=== PATIENT | male | born 1940 | race Caucasian/White ===

== ENCOUNTER 2017-07-19 03:03 | Inpatient (IN) | payer OTHER, MEDICARE, BC ==
[~2017-07-19] VITALS: Ht 177.8 cm; Wt 89.5 kg
[2017-07-19] VITALS (14 sets, daily range): BP systolic 103–137; BP diastolic 58–87; PULSE 48–119; RESP 19–25; TEMP 98.4–99; O2SAT 99–100
[2017-07-19] MEDS ORDERED: ONDANSETRON HCL 4 MG/2 ML VIAL ONE (03:11)
[2017-07-19] MEDS ORDERED: MORPHINE SULFATE 8 MG/ML INJ ONE (03:11)
[2017-07-19] MEDS ORDERED: GENTAMICIN 80 MG PREMIX 100 ML ONE (03:11)
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
[2017-07-19 03:27] LABS: AUTOMATED NEUTROPHIL # 9.5 TH/MM3 (1.8-7.7); BASOPHIL % 0.4 % (0.0-2.0); EOSINOPHIL # 0.1 TH/MM3 (0-0.4); EOSINOPHIL % 1.2 % (0.0-4.0); HEMATOCRIT 36.8 % (39.0-51.0); HEMOGLOBIN 12.1 GM/DL (13.0-17.0); LYMPH % 7.8 % (9.0-44.0); LYMPHOCYTE # 0.9 TH/MM3 (1.0-4.8); MEAN CELL VOLUME 93.5 FL (80.0-100.0); MEAN CORPUSCULAR HEMOGLOBIN 30.6 PG (27.0-34.0); MEAN CORPUSCULAR HGB CONC 32.8 % (32.0-36.0); MEAN PLATELET VOLUME 9.7 FL (7.0-11.0); MONO % 6.7 % (0.0-8.0); MONOCYTE # 0.8 TH/MM3 (0-0.9); NEUT % 83.9 % (16.0-70.0); PLATELET COUNT 131 TH/MM3 (150-450); RED BLOOD COUNT 3.93 MIL/MM3 (4.50-5.90); RED CELL DISTRIBUTION WIDTH 14.5 % (11.6-17.2); WHITE BLOOD COUNT 11.3 TH/MM3 (4.0-11.0)
[2017-07-19] MEDS ORDERED: IOHEXOL 350 MG/ML 10 ML VIAL (for RAD DIAG) IVCONTRAST ONE (03:38)
[2017-07-19 03:48] LABS: INTERNATIONAL NORMALIZED RATIO 1.3 RATIO; PROTHROMBIN TIME - PATIENT 14.7 SEC (9.8-11.6)
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
--- NOTE | 2017-07-19 03:58 | RADRPT ---
EXAM DATE/TIME: 07/19/2017 02:56 [facility] COMPARISON: No previous studies available for comparison. INDICATIONS : [place]. [facility] [place] MEDICAL HISTORY : None. SURGICAL HISTORY : None. ENCOUNTER: Initial ACUITY: 1 day PAIN SCORE: Non-responsive. LOCATION: chest FINDINGS: A single view of the chest demonstrates left basal atelectasis. Right lung clear. The cardiomediasti nal contours are unremarkable. Osseous structures are intact. CONCLUSION: Left basilar atelectasis. Venkat Hong MD on July 19, 2017 at 3:56 Board Certified Radiologist. This report was verified electronically.
--- NOTE | 2017-07-19 03:58 | RADRPT ---
EXAM DATE/TIME: 07/19/2017 02:56 [facility] COMPARISON: No previous studies available for comparison. INDICATIONS : [place] [facility] [place]ICAL H[place]ORY : None. SURGICAL HISTORY : None. ENCOUNTER: Initial ACUITY: 1 day PAIN SCORE: Non-responsive. LOCATION: chest FINDINGS: A single view of the chest demonstrates left basal atelectasis. Right lung clear. The cardiomediasti nal contours are unremarkable. Osseous structures are intact. CONCLUSION: Left basilar atelectasis. Venkat Hong MD on July 19, 2017 at 3:56 Board Certified Radiologist. This report was verified electronically.
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
[2017-07-19] MEDS ORDERED: MAGNESIUM HYDROXIDE SUSP 30 ML CUP PO PRN (04:00)
[2017-07-19] MEDS ORDERED: ENALAPRILAT 1.25 MG/ML VIAL IV PUSH PRN (04:00)
[2017-07-19] MEDS: SODIUM CHLOR 0.9% 1000 ML INJ 1,000 ML IV SCH ×3 (04:00→19:52)
[2017-07-19] MEDS ORDERED: MISCELLANEOUS NURSING INFORMATION XX SCH (04:00)
[2017-07-19] MEDS ORDERED: CHLORHEXIDINE GLUCONATE 2 % 1 PACK (2 CLOTHS) TOP PRN (04:00)
[2017-07-19] MEDS ORDERED: ceFAZolin 2 GM PREMIX 50 ML IV SCH (04:00)
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
[2017-07-19 04:48] LABS: BILIRUBIN, URINE NEG (NEG); BLOOD, URINE MOD (NEG); GLUCOSE,URINE 150 mg/dL (NEG); HYALINE CAST, URINE 7 /lpf (RARE); KETONE, URINE NEG (NEG); MUCUS URINE FEW /lpf (OCC); NITRITE,URINE NEG (NEG); SQUAMOUS EPITHELIAL CELL URINE 2 /hpf (0-5); URINE COLOR YELLOW (YELLW/STRAW); URINE LEUKOCYTE ESTERASE NEG (NEG)
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
[2017-07-19] MEDS ORDERED: LACTATED RINGER'S 1000 ML INJ 1,000 ML IV ONE (06:00)
[2017-07-19] MEDS: PANTOPRAZOLE SODIUM 40 MG VIAL IVP SCH (06:09)
[2017-07-19] MEDS: CHLORHEXIDINE GLUCONATE 2 % 1 PACK (2 CLOTHS) TOP SCH (06:10)
[2017-07-19] MEDS ORDERED: ACETAMINOPHEN/HYDROcodone 325 MG/5 MG TAB PO PRN (06:30)
[2017-07-19] MEDS ORDERED: MORPHINE SULFATE 2 MG/ML INJ IV PUSH PRN (06:30)
[2017-07-19] MEDS: ONDANSETRON HCL 4 MG/2 ML VIAL IV PUSH PRN (06:42)
[2017-07-19] MEDS ORDERED: RESP: ALBUTEROL 2.5 MG/IPRATROPIUM 0.5 MG NEB (PRN) NEB (08:00)
[2017-07-19] MEDS: METHOCARBAMOL 500 MG TAB PO SCH ×3 (08:08→21:22)
[2017-07-19] MEDS: DOCUSATE SODIUM 100 MG CAP PO SCH ×2 (08:08→19:52)
[2017-07-19] MEDS: LIDOCAINE HCL 5% PATCH T-DERMAL SCH (08:08)
[2017-07-19] MEDS ORDERED: POTASSIUM CHLORIDE 20 MEQ CONTROLLED RELEASE TAB PO ONE (08:30)
[2017-07-19] MEDS ORDERED: GENTAMICIN SULFATE 80 MG/2 ML VIAL ONE (08:43)
[2017-07-19] MEDS ORDERED: ceFAZolin INJ 1,000 MG VIAL ONE (08:43)
[2017-07-19] MEDS ORDERED: BACITRACIN TOP OINT 15 GM TUBE ONE ×2 (08:52→12:03)
[2017-07-19 08:58] LABS: HEMATOCRIT 46.2 % (39.0-51.0); HEMOGLOBIN 15.6 GM/DL (13.0-17.0); MEAN CELL VOLUME 91.2 FL (80.0-100.0); MEAN CORPUSCULAR HEMOGLOBIN 30.7 PG (27.0-34.0); MEAN CORPUSCULAR HGB CONC 33.7 % (32.0-36.0); MEAN PLATELET VOLUME 9.8 FL (7.0-11.0); PLATELET COUNT 147 TH/MM3 (150-450); RED BLOOD COUNT 5.07 MIL/MM3 (4.50-5.90); RED CELL DISTRIBUTION WIDTH 14.8 % (11.6-17.2)
[2017-07-19] MEDS: RESP: ALBUTEROL 2.5 MG/IPRATROPIUM 0.5 MG NEB (SCH) NEB ×3 (09:17→19:33)
[2017-07-19 09:19] LABS: ALBUMIN 2.1 GM/DL (3.4-5.0); BICARBONATE 14.8 MEQ/L (21.0-32.0); CALCIUM 6.3 MG/DL (8.5-10.1); CALCIUM-PROTEIN CORRECTED 7.9 MG/DL (8.5-10.1); CREATININE 1.57 MG/DL (0.60-1.30); TOTAL BILIRUBIN ADULT 0.3 MG/DL (0.2-1.0)
[2017-07-19] MEDS ORDERED: FAMOTIDINE 20 MG/2 ML VIAL ONE (09:26)
[2017-07-19] MEDS ORDERED: ACETAMINOPHEN 1000 MG/100 ML 100 ML IV ONE (09:26)
[2017-07-19] MEDS ORDERED: GLUCAGON 1 MG/ML VIAL OTHER PRN (09:45)
[2017-07-19] MEDS ORDERED: DEXTROSE 50% IN WATER 50 ML VIAL(D50) IV PUSH PRN (09:45)
[2017-07-19] MEDS ORDERED: HYDR-3583 PO (10:12)
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
[2017-07-19] MEDS ORDERED: GENTAMICIN 80 MG PREMIX 100 ML IV SCH (12:00)
[2017-07-19] MEDS: INSULIN ASPART SUPPLEMENTAL SCALE SQ SCH ×3 (12:00→20:36)
[2017-07-19] MEDS ORDERED: MORPHINE SULFATE 4 MG/ML INJ IV PUSH PRN (12:30)
--- NOTE | 2017-07-19 12:34 | PD.OP ---
cc: Ronaldo Lopez MD Operative Report Date of Surgery: Jul 19, 2017 Preoperative Diagnosis: Closed right radial shaft fracture, open left ulna shaft fracture, open left radial head fracture, closed left humerus shaft fracture Postoperative Diagnosis: Procedure: Open reduction internal fixation right radial shaft fracture, irrigation and debridement of open left ulna shaft fracture, open reduction total fixation of left ulna shaft fracture, irrigation debridement of open left radial head fracture, open treatment of left radial head fracture with excision Surgeon: Ronaldo Lopez Sole Rounder(s): BRAYAN Alegria PA-C The surgical procedure was assisted by my physician cashier assistant. My P.A. presence was necessary throughout this case for the manipulation and positioning of the surgical extremity. My P.A. was assisting me throughout the duration of this procedure. The skill set of a physician cashier assistant was medically necessary to complete this procedure. During the surgical case the surgical services director was working at the back table and the physician cashier assistant was directly assisting me. Operation and Findings: Patient was seen and examined preoperatively. Patient was found to have displaced left humeral shaft fracture, right radius shaft fracture and open left ulna shaft fractures. Informed consent was obtained and operative site was marked. Patient was brought to operating room and given IV sedation and general anesthesia. Timeout procedure was performed. Operative extremity was prepped and draped with alcohol followed by Hibiclens and draped in usual sterile fashion. IV antibiotics were administered prior to incision. Attention was first turned to the right radius. A 5 inch incision was made over the volar aspect of the forearm. A standard volar approach was utilized. The interval between the radial artery and superficial radial nerve was identified. Neurovascular structures were protected. Soft tissue was elevated off the bone. Fracture site was visualized. Fracture fragments were carefully reduced. Each fracture fragment keyed in anatomic alignment. K wires were used to hold provisional fixation. A Synthes plate was contoured to fit the radius. Plate was provisionally held with K wires. 3.5 cortical screws were used to compress plate to bone. Multiple screws were placed in each side of fracture. K wires were removed. Final fluoroscopy revealed excellent of fracture with well-placed hardware. Patient did have significant skin abrasions on the right arm. Sterile dressings were applied with Xeroform 4 x 4 soft roll and Ayan wrap. Next attention was turned towards the left arm. The left arm was now prepped with alcohol followed by Hibiclens and draped usual sterile fashion. There was a large traumatic laceration over the fracture site. The fracture site was clearly visualized. Attention was now turned towards irrigation and debridement of the ulna shaft. Curettes and rongeurs were used to debride bone. Multiple small bone fragments were excised. Wound was now thoroughly irrigated with 3 L of sterile saline. Next attention was turned to open reduction internal fixation of the ulna shaft fracture. Fascia was elevated off of the bone. Fracture site was visualized. Fracture tenaculums were used to reduce fracture. Fracture keyed into anatomic alignment. A Synthes plate was placed across the fracture. Plate was provisionally held to bone with K wires. 3.5 cortical screws were used to compress plate to bone. Multiple screws were placed in each side of fracture. K wires were removed. Fluoroscopy confirmed excellent alignment of fracture with well-placed hardware. Incision was now closed with #1 PDS, 3-0 PDS, and 3- 0 nylon. At this point the left elbow was visualized. Patient was found to have a comminuted fracture of the radial head. The elbow joint was opened from a laceration over the lateral elbow. Multiple bone fragments were visualized. The radial head was found to be severely comminuted. The majority of the radial head fell out of the wound during irrigation of the elbow joint. Because of the traumatic skin lacerations and deep abrasions around the elbow wrist fracture fragments were excised. The elbow joint was thoroughly irrigated. The radial head and neck were debrided with curettes. The remainder of the radial head fracture was now removed using a rongeur. Fascia was closed with #1 PDS, subcutaneous tissues closed with 3-0 PDS and skin was closed with 3-0 nylon. Sterile dressings were applied with Xeroform 4 x 4's Sof -Rol and Ayan wrap. Patient was transferred directly back to [facility]. Patient will need additional surgery for treatment of his left humerus. He was not cleared today to go into a lateral decubitus position. He'll also likely need further surgery on his left elbow. Patient will likely need a radial head replacement. However because of the severely traumatized skin and deep abrasions and lacerations around the elbow, I do not feel that it was safe to proceed with radial head replacement today. Needle and sponge counts were correct. Ronaldo Lopez MD Jul 19, 2017 12:34
--- NOTE | 2017-07-19 12:34 | PD.OP ---
cc: Ronaldo Lopez MD Operative Report Date of Surgery: Jul 19, 2017 Preoperative Diagnosis: Closed right radial shaft fracture, open left ulna shaft fracture, open left radial head fracture, closed left humerus shaft fracture Postoperative Diagnosis: Procedure: Open reduction internal fixation right radial shaft fracture, irrigation and debridement of open left ulna shaft fracture, open reduction total fixation of left ulna shaft fracture, irrigation debridement of open left radial head fracture, open treatment of left radial head fracture with excision Surgeon: Ronaldo Lopez Real Estate Loan Officer(s): BRAYAN Alegria PA-C The surgical procedure was assisted by my physician psychology assistant. My P.A. presence was necessary throughout this case for the manipulation and positioning of the surgical extremity. My P.A. was assisting me throughout the duration of this procedure. The skill set of a physician psychology assistant was medically necessary to complete this procedure. During the surgical case the surgical physician assistant was working at the back table and the physician psychology assistant was directly assisting me. Operation and Findings: Patient was seen and examined preoperatively. Patient was found to have displaced left humeral shaft fracture, right radius shaft fracture and open left ulna shaft fractures. Informed consent was obtained and operative site was marked. Patient was brought to operating room and given IV sedation and general anesthesia. Timeout procedure was performed. Operative extremity was prepped and draped with alcohol followed by Hibiclens and draped in usual sterile fashion. IV antibiotics were administered prior to incision. Attention was first turned to the right radius. A 5 inch incision was made over the volar aspect of the forearm. A standard volar approach was utilized. The interval between the radial artery and superficial radial nerve was identified. Neurovascular structures were protected. Soft tissue was elevated off the bone. Fracture site was visualized. Fracture fragments were carefully reduced. Each fracture fragment keyed in anatomic alignment. K wires were used to hold provisional fixation. A Synthes plate was contoured to fit the radius. Plate was provisionally held with K wires. 3.5 cortical screws were used to compress plate to bone. Multiple screws were placed in each side of fracture. K wires were removed. Final fluoroscopy revealed excellent of fracture with well-placed hardware. Patient did have significant skin abrasions on the right arm. Sterile dressings were applied with Xeroform 4 x 4 soft roll and Ayan wrap. Next attention was turned towards the left arm. The left arm was now prepped with alcohol followed by Hibiclens and draped usual sterile fashion. There was a large traumatic laceration over the fracture site. The fracture site was clearly visualized. Attention was now turned towards irrigation and debridement of the ulna shaft. Curettes and rongeurs were used to debride bone. Multiple small bone fragments were excised. Wound was now thoroughly irrigated with 3 L of sterile saline. Next attention was turned to open reduction internal fixation of the ulna shaft fracture. Fascia was elevated off of the bone. Fracture site was visualized. Fracture tenaculums were used to reduce fracture. Fracture keyed into anatomic alignment. A Synthes plate was placed across the fracture. Plate was provisionally held to bone with K wires. 3.5 cortical screws were used to compress plate to bone. Multiple screws were placed in each side of fracture. K wires were removed. Fluoroscopy confirmed excellent alignment of fracture with well-placed hardware. Incision was now closed with #1 PDS, 3-0 PDS, and 3- 0 nylon. At this point the left elbow was visualized. Patient was found to have a comminuted fracture of the radial head. The elbow joint was opened from a laceration over the lateral elbow. Multiple bone fragments were visualized. The radial head was found to be severely comminuted. The majority of the radial head fell out of the wound during irrigation of the elbow joint. Because of the traumatic skin lacerations and deep abrasions around the elbow wrist fracture fragments were excised. The elbow joint was thoroughly irrigated. The radial head and neck were debrided with curettes. The remainder of the radial head fracture was now removed using a rongeur. Fascia was closed with #1 PDS, subcutaneous tissues closed with 3-0 PDS and skin was closed with 3-0 nylon. Sterile dressings were applied with Xeroform 4 x 4's Sof -Rol and Ayan wrap. Patient was transferred directly back to [facility]. Patient will need additional surgery for treatment of his left humerus. He was not cleared today to go into a lateral decubitus position. He'll also likely need further surgery on his left elbow. Patient will likely need a radial head replacement. However because of the severely traumatized skin and deep abrasions and lacerations around the elbow, I do not feel that it was safe to proceed with radial head replacement today. Needle and sponge counts were correct. Ronaldo Lopez MD Jul 19, 2017 12:34
--- NOTE | 2017-07-19 12:34 | PD.OP ---
cc: Ronaldo Lopez MD Operative Report Date of Surgery: Jul 19, 2017 Preoperative Diagnosis: Closed right radial shaft fracture, open left ulna shaft fracture, open left radial head fracture, closed left humerus shaft fracture Postoperative Diagnosis: Procedure: Open reduction internal fixation right radial shaft fracture, irrigation and debridement of open left ulna shaft fracture, open reduction total fixation of left ulna shaft fracture, irrigation debridement of open left radial head fracture, open treatment of left radial head fracture with excision Surgeon: Ronaldo Lopez [employer]iter(s): BRAYAN Alegria PA-C The surgical procedure was assisted by my physician resident programs assistant. My P.A. presence was necessary throughout this case for the manipulation and positioning of the surgical extremity. My P.A. was assisting me throughout the duration of this procedure. The skill set of a physician resident programs assistant was medically necessary to complete this procedure. During the surgical case the technical operator was working at the back table and the physician resident programs assistant was directly assisting me. Operation and Findings: Patient was seen and examined preoperatively. Patient was found to have displaced left humeral shaft fracture, right radius shaft fracture and open left ulna shaft fractures. Informed consent was obtained and operative site was marked. Patient was brought to operating room and given IV sedation and general anesthesia. Timeout procedure was performed. Operative extremity was prepped and draped with alcohol followed by Hibiclens and draped in usual sterile fashion. IV antibiotics were administered prior to incision. Attention was first turned to the right radius. A 5 inch incision was made over the volar aspect of the forearm. A standard volar approach was utilized. The interval between the radial artery and superficial radial nerve was identified. Neurovascular structures were protected. Soft tissue was elevated off the bone. Fracture site was visualized. Fracture fragments were carefully reduced. Each fracture fragment keyed in anatomic alignment. K wires were used to hold provisional fixation. A Synthes plate was contoured to fit the radius. Plate was provisionally held with K wires. 3.5 cortical screws were used to compress plate to bone. Multiple screws were placed in each side of fracture. K wires were removed. Final fluoroscopy revealed excellent of fracture with well-placed hardware. Patient did have significant skin abrasions on the right arm. Sterile dressings were applied with Xeroform 4 x 4 soft roll and Ayan wrap. Next attention was turned towards the left arm. The left arm was now prepped with alcohol followed by Hibiclens and draped usual sterile fashion. There was a large traumatic laceration over the fracture site. The fracture site was clearly visualized. Attention was now turned towards irrigation and debridement of the ulna shaft. Curettes and rongeurs were used to debride bone. Multiple small bone fragments were excised. Wound was now thoroughly irrigated with 3 L of sterile saline. Next attention was turned to open reduction internal fixation of the ulna shaft fracture. Fascia was elevated off of the bone. Fracture site was visualized. Fracture tenaculums were used to reduce fracture. Fracture keyed into anatomic alignment. A Synthes plate was placed across the fracture. Plate was provisionally held to bone with K wires. 3.5 cortical screws were used to compress plate to bone. Multiple screws were placed in each side of fracture. K wires were removed. Fluoroscopy confirmed excellent alignment of fracture with well-placed hardware. Incision was now closed with #1 PDS, 3-0 PDS, and 3- 0 nylon. At this point the left elbow was visualized. Patient was found to have a comminuted fracture of the radial head. The elbow joint was opened from a laceration over the lateral elbow. Multiple bone fragments were visualized. The radial head was found to be severely comminuted. The majority of the radial head fell out of the wound during irrigation of the elbow joint. Because of the traumatic skin lacerations and deep abrasions around the elbow wrist fracture fragments were excised. The elbow joint was thoroughly irrigated. The radial head and neck were debrided with curettes. The remainder of the radial head fracture was now removed using a rongeur. Fascia was closed with #1 PDS, subcutaneous tissues closed with 3-0 PDS and skin was closed with 3-0 nylon. Sterile dressings were applied with Xeroform 4 x 4's Sof -Rol and Ayan wrap. Patient was transferred directly back to [facility]. Patient will need additional surgery for treatment of his left humerus. He was not cleared today to go into a lateral decubitus position. He'll also likely need further surgery on his left elbow. Patient will likely need a radial head replacement. However because of the severely traumatized skin and deep abrasions and lacerations around the elbow, I do not feel that it was safe to proceed with radial head replacement today. Needle and sponge counts were correct. Ronaldo Lopez MD Jul 19, 2017 12:34
--- NOTE | 2017-07-19 12:49 | RADRPT ---
EXAM DATE/TIME: 07/19/2017 11:57 [facility] COMPARISON: No previous studies available for comparison. INDICATIONS : Post-op ORIF left ulna fracture. MEDICAL HISTORY : None. SURGICAL HISTORY : None. ENCOUNTER: Subsequent ACUITY: 1 day PAIN SCORE: Non-responsive. LOCATION: Left upper extremity FINDINGS: Spot films reveal plate and screw fixation of the ulnar shaft with anatomic alignment. No complicatio ns identified. CONCLUSION: 1. Fixation left ulna mid shaft. Umesh Bella MD on July 19, 2017 at 12:44 Board Certified Radiologist. This report was verified electronically.
--- NOTE | 2017-07-19 12:53 | PD.ORT.PN ---
Subjective Subjective Remarks Intubated and stable Objective Vitals Vital Signs Date Time Temp Pulse Resp B/P (MAP) Pulse Ox O2 Delivery O2 Flow Rate FiO2 07/19/17 10:00 90 07/19/17 09:17 100 Nasal Cannula 4.00 07/19/17 08:00 84 07/19/17 07:15 99.0 84 21 103/59 (74) 100 07/19/17 07:00 98 Nasal Cannula 2.00 07/19/17 06:00 76 07/19/17 03:05 99 2.00 07/19/17 03:05 99 2.00 07/19/17 03:05 99 Nasal Cannula 2.00 I/O 07/18/17 07/18/17 07/18/17 07/19/17 07/19/17 07/19/17 07:00 15:00 23:00 07:00 15:00 23:00 Intake Total 1600 ml Output Total 175 ml 550 ml Balance -175 ml 1050 ml Intake Other 1600 ml Output Urine Total 175 ml 300 ml Estimated Blood Loss 250 ml Result Diagram: 07/19/17 0835 07/19/17307 Other Results Laboratory Tests Test 07/19/17 03:08 Prothromb Time International Ratio 1.3 RATIO Prothrombin Time 14.7 SEC (9.8-11.6) Imaging Last 24 hours Imp[address]ine CT 07/19/17304 Signed Impressions: Service Date/Time: Wednesday, July 19, 2017 03:29 - CONCLUSION: 1. Fracture through superior T11. No retropulsion of posterior fragments or canal stenosis. 2. Right 11th rib fracture. Venkat Hong MD Pelvis X-Ray 07/19/17304 Signed Impressions: Service Date/Time: Wednesday, July 19, 2017 02:56 - CONCLUSION: Limited study without fracture. Venkat Hong MD Maxillofacial CT 07/19/17304 Signed Impressions: Service Date/Time: Wednesday, July 19, 2017 03:24 - CONCLUSION: 1. Fluid in the sphenoid sinuses greater on the right. 2. No facial fracture seen. Venkat Hong MD Lumbar Spine CT 07/19/17304 Signed Impressions: Service Date/Time: Wednesday, July 19, 2017 03:29 - CONCLUSION: 1. No lumbar vertebral fracture. 2. Disc bulges at L3-4 and L4-5 levels. 3. Right 11th rib fracture. eVnkat Hong MD Head CT 07/19/17304 Signed Impressions: Service Date/Time: Wednesday, July 19, 2017 03:21 - CONCLUSION: 1. Cerebral atrophy and chronic ischemic small vessel vasculopathy. 2. Fluid in the sphenoid sinuses greater right. Venkat Hong MD Chest X-Ray 07/19/17304 Signed Impressions: Service Date/Time: Wednesday, July 19, 2017 02:56 - CONCLUSION: Left basilar atelectasis. Venkat Hong MD Chest CT 07/19/17304 Signed Impressions: Service Date/Time: Wednesday, July 19, 2017 03:29 - CONCLUSION: 1. T11 vertebral fracture. 2. Fracture of the right seventh rib. 3. 8mm nodule right lung. 4. Minimal ground glass densities in the right lower lobe. Venkat Hong MD Cervical Spine CT 07/19/17304 Signed Impressions: Service Date/Time: Wednesday, July 19, 2017 03:23 - CONCLUSION: 1. No fracture or subluxation. 2. Protrusions at C3-4 and C6-7. Venkat Hong MD Abdomen/Pelvis CT 07/19/17304 Signed Impressions: Service Date/Time: Wednesday, July 19, 2017 03:29 - CONCLUSION: 1. Fractures of T11. No retropulsion of posterior fragments. 2. Right 11th rib fracture. 3. No abdominal visceral injury. Venkat Hong MD Radius/Ulna X-Ray 07/19/17 0000 Signed Impressions: Service Date/Time: Wednesday, July 19, 2017 02:56 - CONCLUSION: Mildly displaced fracture midshaft of ulna. Venkat Hong MD Radius/Ulna X-Ray 07/19/17 0000 Signed Impressions: Service Date/Time: Wednesday, July 19, 2017 02:56 - CONCLUSION: Fracture proximal/mid shaft of radius with mild displacement. Venkat Hong MD Humerus X-Ray 07/19/17 0000 Signed Impressions: Service Date/Time: Wednesday, July 19, 2017 02:56 - CONCLUSION: No fracture right humerus. Venkat Hong MD Humerus X-Ray 07/19/17 0000 Signed Impressions: Service Date/Time: Wednesday, July 19, 2017 02:56 - CONCLUSION: Fracture mid shaft of the humerus. Venkat Hong MD Objective Remarks Bilateral lower extremities: No laxity or crepitus through range of motion of hip knee or ankle. Distally good capillary refills and pulses. Right upper extremity: Clean dry dressings intact with intact distal pulses and good capillary refills Left upper extremity: Clean dry dressings intact with intact distal pulses. Good capillary refills. Sling and swath applied Assessment & Plan Assessment and Plan Right radial shaft fracture with significant degloving and open wounds. Status post ORIF POD 0 Left forearm irrigation debridement and ORIF ulna shaft, irrigation debridement of left elbow with removal of radial head fragments. POD 0 Left midshaft humerus without any surgical treatment at this point Nonweightbearing bilateral upper extremities Daily dressing changes beginning POD 2 with bacitracin, Adaptic, 4 x 4's and Ayan wrap with ABDs Sling and swath at all times left upper extremity except for dressing changes Medical management for stabilization. Once patient is stable we will proceed with ORIF of left humeral shaft and left radial head replacement Lovenox Bilateral SCDs Artemio Story Jr. Jul 19, 2017 12:53
--- NOTE | 2017-07-19 13:00 | RADRPT ---
EXAM DATE/TIME: 07/19/2017 10:53 [facility] COMPARISON: No previous studies available for comparison. INDICATIONS : Post-op ORIF right radius fracture. MEDICAL HISTORY : None. SURGICAL HISTORY : None. ENCOUNTER: Subsequent ACUITY: 1 day PAIN SCORE: Non-responsive. LOCATION: Right upper extremity FINDINGS: Two view examination of the right forearm demonstrates plate and screw fixation of a right radius fra cture proximally. No complications identified. CONCLUSION: 1. Fixation of right radius fracture. Umesh Bella MD on July 19, 2017 at 12:58 Board Certified Radiologist. This report was verified electronically.
[2017-07-19] MEDS ORDERED: PROPOFOL 500 MG/50 ML INJ 50 ML ONE (13:37)
[2017-07-19] MEDS: ceFAZolin 2 GM PREMIX 50 ML IV SCH ×2 (13:41→20:40)
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
[2017-07-19 13:44] LABS: HEMATOCRIT 41.9 % (39.0-51.0); HEMOGLOBIN 13.9 GM/DL (13.0-17.0)
--- NOTE | 2017-07-19 14:19 | RADRPT ---
EXAM DATE/TIME: 07/19/2017 14:38 [facility] COMPARISON: CHEST SINGLE AP, July 19, 2017, 2:56. INDICATIONS : Confirm central line placement. MEDICAL HISTORY : None. SURGICAL HISTORY : None. ENCOUNTER: Subsequent ACUITY: 1 day PAIN SCORE: Non-responsive. LOCATION: Bilateral chest FINDINGS: There is a right central line in place. The central line appears to be in good position. There is no pneumothorax. There is mild right lower lung atelectasis. The endotracheal tube appears to be in good position. The left lung is grossly clear. The heart size and bony structures are stable. CONCLUSION: 1. Right central line in place. 2. No pneumothorax. Ravi Barnes MD on July 19, 2017 at 14:17 Board Certified Radiologist. This report was verified electronically.
[2017-07-19 14:21] LABS: TROPONIN I 0.15 NG/ML (0.02-0.05)
[2017-07-19] MEDS ORDERED: SODIUM CHLOR 0.9% 1000 ML INJ 1,000 ML IV ONE (14:30)
[2017-07-19 15:42] LABS: BICARBONATE 22.2 MEQ/L (21.0-32.0); CALCIUM 7.7 MG/DL (8.5-10.1); CREATININE 2.12 MG/DL (0.60-1.30)
[2017-07-19] MEDS ORDERED: PHENYLEPHRINE 40 MG in D5W 500 ML IV PRN (16:00)
[2017-07-19] MEDS ORDERED: diphenhydrAMINE HCL 50 MG/ML VIAL IV PUSH ONE (16:45)
[2017-07-19] MEDS: GENTAMICIN 80 MG PREMIX 100 ML IV SCH (17:10)
[2017-07-19] MEDS: DEXAMETHASONE SOD PHOS 4 MG/ML VIAL IV PUSH SCH (17:10)
[2017-07-19] MEDS: diphenhydrAMINE HCL 50 MG/ML VIAL IV PUSH SCH (17:10)
[2017-07-19] MEDS: PROPOFOL 1000 MG/100 ML IV PRN (17:12)
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
[2017-07-19] MEDS ORDERED: DIGOXIN 0.5 MG/2 ML VIAL IV PUSH ONE (18:00)
--- NOTE | 2017-07-19 18:13 | ECHRPT ---
Indication: LV FUNC, TRAUMA CONCLUSIONS Normal left ventricular size. Mild concentric left ventricular hypertrophy. The left ventricular systolic function is moderately reduced with an estimated ejection fraction in the range of 40-45%. The left atrial size is moderately dilated. [id number] mitral valve regurgitation. Aortic valve sclerosis is present. There is mild to moderate tricuspid valve regurgitation. There is estimated moderate pulmonary hypertension present (range 50-60 mmHg). BP: / HR: Rhythm: Atrial fibrillation MEASUREMENTS (Male / Female) Normal Values Technical Quality:Fair 2D ECHO LV Diastolic Diameter PLAX 5.0 cm 4.2 - 5.9 / 3.9 - 5.3 cm LV Systolic Diameter PLAX 4.1 cm IVS Diastolic Thickness 1.2 cm 0.6 - 1.0 / 0.6 - 0.9 cm LVPW Diastolic Thickness 1.2 cm 0.6 - 1.0 / 0.6 - 0.9 cm LV Relative Wall Thickness 0.5 LVOT Diameter 2.0 cm Aortic Root Diameter 3.2 cm LA Systolic Diameter LX 5.1 cm 3.0 - 4.0 / 2.7 - 3.8 cm M-MODE AV Cusp Separation MM 2.0 cm DOPPLER AV Peak Velocity 106.4 cm/s AV Peak Gradient 4.5 mmHg AV Mean Gradient 2.7 mmHg AV Velocity Time Integral 15.9 cm LVOT Peak Velocity 59.9 cm/s LVOT Peak Gradient 1.4 mmHg LVOT Velocity Time Integral 8.9 cm AV Area Cont Eq vti 1.8 cm AV Area Cont Eq pk 1.8 cm Mitral E Point Velocity 93.7 cm/s LV E' Lateral Velocity 6.6 cm/s Mitral E to LV E' Lateral Ratio 14.1 LV E' Septal Velocity 4.5 cm/s Mitral E to LV E' Septal Ratio 20.9 TR Peak Velocity 251.5 cm/s TR Peak Gradient 25.3 mmHg Right Atrial Pressure 10.0 mmHg Pulmonary Artery Systolic Pressu 35.3 mmHg Right Ventricular Systolic Press 35.3 mmHg PV Peak Velocity 42.9 cm/s PV Peak Gradient 0.7 mmHg FINDINGS LEFT VENTRICLE Normal left ventricular size. Mild concentric left ventricular hypertrophy. The left ventricular systolic function is moderately reduced with an estimated ejection fraction in the range of 40-45%. LEFT ATRIUM The left atrial size is moderately dilated. MITRAL VALVE [id number] mitral valve regurgitation. AORTIC VALVE Aortic valve sclerosis is present. TRICUSPID VALVE There is mild to moderate tricuspid valve regurgitation. There is estimated moderate pulmonary hypertension present (range 50-60 mmHg). Gurinder Sparks MD (Electronically Signed) Final Date:19 July 2017 18:12
--- NOTE | 2017-07-19 18:20 | OTSOAPIP ---
TIME SESSION COMPLETED: PM TREATMENT TIME: 0 MINS. CHART REVIEWED. ATTEMPTED TO SEE FOR EVALUATION, HOWEVER PT HAVING SURGERY. WILL FOLLOW NEXT DAY. Therapist: MARICRUZ JOHNSTON OT/L Signature on file
[2017-07-19] MEDS ORDERED: DILTIAZEM HCL 25 MG/5 ML VIAL IV ONE (19:15)
[2017-07-19] MEDS ORDERED: ATROPINE SULFATE 1 MG/10 ML SYRINGE ONE (19:59)
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
--- NOTE | 2017-07-19 21:19 | EKG ---
Date Performed: 07/19/2017 Time Performed: 08:21:42 PTAGE: 77 years EKG: Atrial fibrillation. Poor R wave progression - probable normal variant Extensive ST-T greer es may be due to myocardial ischemia Abnormal ECG NO PREVIOUS TRACING DOCTOR: Jose Joshi Interpretating Date/Time 07/19/2017 21:16:57
[2017-07-20] VITALS (19 sets, daily range): BP systolic 92–204; BP diastolic 55–112; PULSE 75–133; RESP 8–20; TEMP 98.1–99.3; O2SAT 93–100
[2017-07-20] MEDS: DEXAMETHASONE SOD PHOS 4 MG/ML VIAL IV PUSH SCH ×3 (00:14→11:31)
[2017-07-20] MEDS: diphenhydrAMINE HCL 50 MG/ML VIAL IV PUSH SCH ×2 (00:14→04:36)
[2017-07-20] MEDS: GENTAMICIN 80 MG PREMIX 100 ML IV SCH ×3 (00:14→18:20)
[2017-07-20] MEDS ORDERED: SODIUM CHLOR 0.9% 1000 ML INJ 1,000 ML IV ONE (02:00)
[2017-07-20] MEDS ORDERED: HYDROmorphone HCL PF 0.5 MG/0.5 ML SYRINGE IV ONE (02:00)
[2017-07-20] MEDS: PANTOPRAZOLE SODIUM 40 MG VIAL IVP SCH (03:16)
[2017-07-20] MEDS: PROPOFOL 1000 MG/100 ML IV PRN (03:19)
[2017-07-20] MEDS: RESP: ALBUTEROL 2.5 MG/IPRATROPIUM 0.5 MG NEB (SCH) NEB ×4 (03:32→21:35)
--- NOTE | 2017-07-20 03:53 | RADRPT ---
EXAM DATE/TIME: 07/20/2017 03:56 [facility] COMPARISON: CHEST SINGLE AP, July 19, 2017, 14:38. INDICATIONS : Respiratory [place] [facility] [place]. SURGICAL HISTORY : None. ENCOUNTER: Subsequent ACUITY: 2 days PAIN SCORE: Non-responsive. LOCATION: Bilateral chest FINDINGS: A single AP portable view of the chest was obtained and again demonstrates endotracheal tube in place with the tip approximately 4 cm above the christoph. The right internal jugular central venous line rem ains in place. There is hazy opacity at both lung bases with no new consolidative infiltrate or effus ion. The heart size remains at the upper limits of normal with no perihilar edema. Postsurgical greer es are noted involving the right proximal humerus with screw plate fixation device. CONCLUSION: No significant change. Hazy opacity remains at the lung bases with no focal consolida tion or perihilar edema. Artemio Arshad MD on July 20, 2017 at 3:50 Board Certified Radiologist. This report was verified electronically.
--- NOTE | 2017-07-20 03:53 | RADRPT ---
EXAM DATE/TIME: 07/20/2017 03:56 [facility] COMPARISON: CHEST SINGLE AP, July 19, 2017, 14:38. INDICATIONS : Respiratory [place] [facility] [place]. SURGICAL HISTORY : None. ENCOUNTER: Subsequent ACUITY: 2 days PAIN SCORE: Non-responsive. LOCATION: Bilateral chest FINDINGS: A single AP portable view of the chest was obtained and again demonstrates endotracheal tube in place with the tip approximately 4 cm above the christoph. The right internal jugular central venous line rem ains in place. There is hazy opacity at both lung bases with no new consolidative infiltrate or effus ion. The heart size remains at the upper limits of normal with no perihilar edema. Postsurgical greer es are noted involving the right proximal humerus with screw plate fixation device. CONCLUSION: No significant change. Hazy opacity remains at the lung bases with no focal consolida tion or perihilar edema. Artemio Arshad MD on July 20, 2017 at 3:50 Board Certified Radiologist. This report was verified electronically.
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
[2017-07-20] MEDS: CHLORHEXIDINE GLUCONATE 2 % 1 PACK (2 CLOTHS) TOP SCH (04:11)
[2017-07-20] MEDS: METHOCARBAMOL 500 MG TAB PO SCH ×3 (04:36→20:07)
[2017-07-20] MEDS: ceFAZolin 2 GM PREMIX 50 ML IV SCH ×3 (04:36→20:07)
[2017-07-20] MEDS: SODIUM CHLOR 0.9% 1000 ML INJ 1,000 ML IV SCH (05:01)
[2017-07-20 05:52] LABS: AUTOMATED NEUTROPHIL # 11.4 TH/MM3 (1.8-7.7); BASOPHIL % 0.1 % (0.0-2.0); HEMATOCRIT 33.7 % (39.0-51.0); HEMOGLOBIN 11.2 GM/DL (13.0-17.0); LYMPH % 3.4 % (9.0-44.0); LYMPHOCYTE # 0.4 TH/MM3 (1.0-4.8); MEAN CELL VOLUME 90.7 FL (80.0-100.0); MEAN CORPUSCULAR HEMOGLOBIN 30.2 PG (27.0-34.0); MEAN CORPUSCULAR HGB CONC 33.3 % (32.0-36.0); MEAN PLATELET VOLUME 9.6 FL (7.0-11.0); MONO % 5.9 % (0.0-8.0); MONOCYTE # 0.7 TH/MM3 (0-0.9); NEUT % 90.6 % (16.0-70.0); PLATELET COUNT 84 TH/MM3 (150-450); RED BLOOD COUNT 3.71 MIL/MM3 (4.50-5.90); RED CELL DISTRIBUTION WIDTH 14.9 % (11.6-17.2); WHITE BLOOD COUNT 12.6 TH/MM3 (4.0-11.0)
[2017-07-20 06:58] LABS: ALBUMIN 2.1 GM/DL (3.4-5.0); BICARBONATE 19.3 MEQ/L (21.0-32.0); CALCIUM-PROTEIN CORRECTED 8.4 MG/DL (8.5-10.1); CREATININE 2.63 MG/DL (0.60-1.30); TOTAL BILIRUBIN ADULT 0.4 MG/DL (0.2-1.0); TOTAL PROTEIN 4.5 GM/DL (6.4-8.2)
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
[2017-07-20] MEDS: DOCUSATE SODIUM 100 MG CAP PO SCH ×2 (08:26→20:01)
[2017-07-20] MEDS: LIDOCAINE HCL 5% PATCH T-DERMAL SCH (08:27)
[2017-07-20] MEDS: INSULIN ASPART SUPPLEMENTAL SCALE SQ SCH ×4 (08:27→20:52)
[2017-07-20] MEDS ORDERED: CALCIUM GLUCONATE INJ 1 GM in SODIUM CHLORIDE 0.9% INJ 100 ML IV ONE (09:00)
[2017-07-20] MEDS ORDERED: HYDROmorphone HCL PF 1 MG/ML VIAL IV PRN (09:00)
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
--- NOTE | 2017-07-20 09:49 | PD.ORT.PN ---
Subjective Post Op Day #: 1 Subjective Remarks pain under control. Objective Vitals Vital Signs Date Time Temp Pulse Resp B/P (MAP) Pulse Ox O2 Delivery O2 Flow Rate FiO2 07/20/17 08:35 97 Nasal Cannula 4 07/20/17 08:34 99 Nasal Cannula 4.00 07/20/17 07:38 93 40 07/20/17 06:00 88 07/20/17 04:21 99 40 07/20/17 04:00 98.1 94 20 155/72 (99) 100 07/20/17 04:00 40 07/20/17 04:00 94 07/20/17 02:00 75 07/20/17 01:10 100 40 07/20/17 00:00 75 07/20/17 00:00 40 07/20/17 00:00 99.0 75 18 92/55 (67) 100 07/19/17 22:00 88 07/19/17 20:00 48 07/19/17 20:00 99.0 48 19 133/58 (83) 100 07/19/17 20:00 40 07/19/17 19:33 100 40 07/19/17 19:00 100 Mechanical Ventilator 40 07/19/17 18:00 119 07/19/17 16:00 98.4 101 25 137/87 (104) 100 07/19/17 16:00 101 07/19/17 16:00 40 07/19/17 15:28 100 40 07/19/17 14:00 116 07/19/17 13:30 100 07/19/17 13:05 100 100 07/19/17 10:00 90 I/O 07/19/17 07/19/17 07/19/17 07/20/17 07/20/17 07/20/17 07:00 15:00 23:00 07:00 15:00 23:00 Intake Total 1650 ml 1466.7 ml 2566 ml Output Total 175 ml 550 ml 650 ml 350 ml Balance -175 ml 1100 ml 816.7 ml 2216 ml Intake IV Total 50 ml 1466.7 ml 2566 ml Other 1600 ml Output Urine Total 175 ml 300 ml 650 ml 350 ml Estimated Blood Loss 250 ml # Bowel Movements 0 0 Result Diagram: 07/20/17 0535 07/20/17 0535 Imaging Last 24 hours Impressions Thoracic Spine CT 07/19/17304 Signed Impressions: Service Date/Time: Wednesday, July 19, 2017 03:29 - CONCLUSION: 1. Fracture through superior T11. No retropulsion of posterior fragments or canal stenosis. 2. Right 11th rib fracture. Venkat Hong MD Pelvis X-Ray 07/19/17304 Signed Impressions: Service Date/Time: Wednesday, July 19, 2017 02:56 - CONCLUSION: Limited study without fracture. Venkat Hong MD Maxillofacial CT 07/19/17304 Signed Impressions: Service Date/Time: Wednesday, July 19, 2017 03:24 - CONCLUSION: 1. Fluid in the sphenoid sinuses greater on the right. 2. No facial fracture seen. Venkat Hong MD Lumbar Spine CT 07/19/17304 Signed Impressions: Service Date/Time: Wednesday, July 19, 2017 03:29 - CONCLUSION: 1. No lumbar vertebral fracture. 2. Disc bulges at L3-4 and L4-5 levels. 3. Right 11th rib fracture. Venkat Hong MD Head CT 07/19/17304 Signed Impressions: Service Date/Time: Wednesday, July 19, 2017 03:21 - CONCLUSION: 1. Cerebral atrophy and chronic ischemic small vessel vasculopathy. 2. Fluid in the sphenoid sinuses greater right. Venkat Hong MD Chest X-Ray 07/19/17304 Signed Impressions: Service Date/Time: Wednesday, July 19, 2017 02:56 - CONCLUSION: Left basilar atelectasis. Venkat Hong MD Chest CT 07/19/17304 Signed Impressions: Service Date/Time: Wednesday, July 19, 2017 03:29 - CONCLUSION: 1. T11 vertebral fracture. 2. Fracture of the right seventh rib. 3. 8mm nodule right lung. 4. Minimal ground glass densities in the right lower lobe. Venkat Hong MD Cervical Spine CT 07/19/17304 Signed Impressions: Service Date/Time: Wednesday, July 19, 2017 03:23 - CONCLUSION: 1. No fracture or subluxation. 2. Protrusions at C3-4 and C6-7. Venkat Hong MD Abdomen/Pelvis CT 07/19/17304 Signed Impressions: Service Date/Time: Wednesday, July 19, 2017 03:29 - CONCLUSION: 1. Fractures of T11. No retropulsion of posterior fragments. 2. Right 11th rib fracture. 3. No abdominal visceral injury. Venkat Hong MD Radius/Ulna X-Ray 07/19/17 0000 Signed Impressions: Service Date/Time: Wednesday, July 19, 2017 02:56 - CONCLUSION: Mildly displaced fracture midshaft of ulna. Venkat Hong MD Radius/Ulna X-Ray 07/19/17 Signed Impressions: Service Date/Time: Wednesday, July 19, 2017 02:56 - CONCLUSION: Fracture proximal/mid shaft of radius with mild displacement. Venkat Hong MD Humerus X-Ray 07/19/17 Signed Impressions: Service Date/Time: Wednesday, July 19, 2017 02:56 - CONCLUSION: No fracture right humerus. Venkat Hong MD Humerus X-Ray 07/19/17 Signed Impressions: Service Date/Time: Wednesday, July 19, 2017 02:56 - CONCLUSION: Fracture mid shaft of the humerus. Venkat Hong MD Objective Remarks Bilateral lower extremities: No laxity or crepitus through range of motion of hip knee or ankle. Distally good capillary refills and pulses. Right upper extremity: Clean dry dressings intact with intact distal pulses and good capillary refills Left upper extremity: Clean dry dressings intact with intact distal pulses. Good capillary refills. Sling and swath applied Assessment & Plan Ortho Post Op Day #: 1 Problem List: Assessment and Plan Right radial shaft fracture with significant degloving and open wounds. Status post ORIF POD 1 Left forearm irrigation debridement and ORIF ulna shaft, irrigation debridement of left elbow with removal of radial head fragments. POD 1 Left midshaft humerus without any surgical treatment at this point Nonweightbearing bilateral upper extremities Daily dressing changes beginning POD 2 with bacitracin, Adaptic, 4 x 4's and Ayan wrap with ABDs Sling and swath at all times left upper extremity except for dressing changes Medical management for stabilization. Once patient is stable we will proceed with ORIF of left humeral shaft and left radial head replacement. likely early next week if cleared. Lovenox Bilateral SCDs Rebel Cesar Jul 20, 2017 09:49
[2017-07-20] MEDS: ENOXAPARIN SODIUM 40 MG/0.4 ML SYRINGE SQ SCH (10:02)
[2017-07-20] MEDS: METOPROLOL TARTRATE 50 MG TAB PO SCH ×2 (10:02→20:01)
[2017-07-20] MEDS: VALSARTAN 40 MG TAB PO SCH (10:09)
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
[2017-07-20] MEDS: niCARdipine 25 MG/NS 250 ML Vial2Bag or IV room IV PRN ×4 (14:07→20:02)
[2017-07-20] MEDS: HYDROmorphone HCL PF 0.5 MG/0.5 ML SYRINGE IV PUSH PRN ×2 (15:13→18:07)
[2017-07-20] MEDS ORDERED: VALS1TAB70 PO (17:46)
[2017-07-20] MEDS ORDERED: ASPI81CH37 CHEW (17:46)
[2017-07-20] MEDS ORDERED: TAMS0.4C4 PO (17:46)
[2017-07-20] MEDS ORDERED: VALS320T6 PO (17:46)
[2017-07-20] MEDS ORDERED: VITA2000 PO (17:46)
[2017-07-20] MEDS ORDERED: PRAV40TA2 PO (17:46)
[2017-07-20] MEDS ORDERED: LANTUS2P SQ (17:58)
[2017-07-20] MEDS: ACETAMINOPHEN/HYDROcodone 325 MG/7.5 MG TAB PO PRN (20:01)
[2017-07-20] MEDS: REMOVE OLD LIDOCAINE PATCH T-DERMAL SCH ×2 (20:52)
[2017-07-21] VITALS (14 sets, daily range): BP systolic 113–186; BP diastolic 70–94; PULSE 82–128; RESP 18–28; TEMP 97.9–99; O2SAT 85–99
[2017-07-21] MEDS: GENTAMICIN 80 MG PREMIX 100 ML IV SCH ×2 (00:01→08:20)
[2017-07-21] MEDS: ACETAMINOPHEN/HYDROcodone 325 MG/7.5 MG TAB PO PRN ×3 (00:01→08:20)
[2017-07-21] MEDS: RESP: ALBUTEROL 2.5 MG/IPRATROPIUM 0.5 MG NEB (SCH) NEB ×5 (04:00→21:07)
[2017-07-21] MEDS: PANTOPRAZOLE SODIUM 40 MG VIAL IVP SCH (04:19)
[2017-07-21] MEDS: HYDROmorphone HCL PF 0.5 MG/0.5 ML SYRINGE IV PUSH PRN (04:19)
[2017-07-21] MEDS: METHOCARBAMOL 500 MG TAB PO SCH ×3 (04:19→23:27)
[2017-07-21] MEDS: ceFAZolin 2 GM PREMIX 50 ML IV SCH ×3 (04:20→23:26)
[2017-07-21] MEDS: CHLORHEXIDINE GLUCONATE 2 % 1 PACK (2 CLOTHS) TOP SCH (04:52)
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
[2017-07-21 05:47] LABS: BASOPHIL % 0.1 % (0.0-2.0); HEMATOCRIT 34.8 % (39.0-51.0); HEMOGLOBIN 11.5 GM/DL (13.0-17.0); LYMPH % 3.3 % (9.0-44.0); LYMPHOCYTE # 0.6 TH/MM3 (1.0-4.8); MEAN CORPUSCULAR HEMOGLOBIN 29.9 PG (27.0-34.0); MEAN CORPUSCULAR HGB CONC 32.9 % (32.0-36.0); MEAN PLATELET VOLUME 9.6 FL (7.0-11.0); MONO % 8.7 % (0.0-8.0); MONOCYTE # 1.5 TH/MM3 (0-0.9); NEUT % 87.9 % (16.0-70.0); PLATELET COUNT 88 TH/MM3 (150-450); RED BLOOD COUNT 3.83 MIL/MM3 (4.50-5.90); RED CELL DISTRIBUTION WIDTH 15.3 % (11.6-17.2)
[2017-07-21] MEDS ORDERED: FUROSEMIDE 40 MG/4 ML VIAL IV PUSH ONE (06:15)
[2017-07-21] MEDS ORDERED: RESP: ALBUTEROL 2.5 MG/IPRATROPIUM 0.5 MG NEB (SCH) NEB ONE (06:15)
[2017-07-21 06:16] LABS: ALBUMIN 2.4 GM/DL (3.4-5.0); ALKALINE PHOSPHATASE 88 U/L (45-117); ALT (GPT) 10 U/L (12-78); AST (GOT) 29 U/L (15-37); BICARBONATE 22.7 MEQ/L (21.0-32.0); BLOOD UREA NITROGEN 57 MG/DL (7-18); CALCIUM 7.7 MG/DL (8.5-10.1); CHLORIDE 111 MEQ/L (98-107); CREATININE 2.63 MG/DL (0.60-1.30); GLOMERULAR FILTRATION RATE 24 ML/MIN (>89); GLUCOSE,RANDOM 287 MG/DL (74-106); SODIUM (NA) 141 MEQ/L (136-145); TOTAL BILIRUBIN ADULT 0.4 MG/DL (0.2-1.0); TOTAL PROTEIN 5.1 GM/DL (6.4-8.2)
[2017-07-21] MEDS: niCARdipine 25 MG/NS 250 ML Vial2Bag or IV room IV PRN ×4 (06:58→16:00)
[2017-07-21] MEDS: INSULIN ASPART SUPPLEMENTAL SCALE SQ SCH ×4 (08:00→21:00)
--- NOTE | 2017-07-21 08:14 | PD.ORT.PN ---
Subjective Subjective Remarks Patient extubated yesterday. Reports pain relatively well controlled at present Objective Vitals Vital Signs Date Time Temp Pulse Resp B/P (MAP) Pulse Ox O2 Delivery O2 Flow Rate FiO2 07/21/17 06:58 120 126/82 07/21/17 06:00 82 07/21/17 04:00 85 Nasal Cannula 5.00 07/21/17 04:00 97.9 87 22 139/85 (103) 85 07/21/17 04:00 87 07/21/17 02:00 84 07/21/17 00:00 97.9 84 22 113/75 (88) 91 07/21/17 00:00 84 07/20/17 22:00 92 07/20/17 21:36 94 Nasal Cannula 3.00 07/20/17 20:02 100 131/84 07/20/17 20:00 98.2 92 18 131/84 (100) 96 07/20/17 20:00 92 07/20/17 19:00 96 Nasal Cannula 3.00 07/20/17 18:00 93 07/20/17 16:42 97 Nasal Cannula 2.00 07/20/17 16:00 99.3 102 17 130/87 (101) 97 07/20/17 16:00 102 07/20/17 14:07 121 231/164 07/20/17 14:00 102 07/20/17 12:00 126 07/20/17 12:00 98.8 126 16 204/112 (142) 96 07/20/17 10:35 99 Nasal Cannula 2.00 07/20/17 10:00 133 07/20/17 08:35 97 Nasal Cannula 4 07/20/17 08:34 99 Nasal Cannula 4.00 I/O 07/20/17 07/20/17 07/20/17 07/21/17 07/21/17 07/21/17 07:00 15:00 23:00 07:00 15:00 23:00 Intake Total 2566 ml 222 ml 570 ml 979 ml Output Total 350 ml 900 ml 1100 ml Balance 2216 ml 222 ml -330 ml -121 ml Intake Oral 420 ml 440 ml IV Total 2566 ml 222 ml 150 ml 539 ml Output Urine Total 350 ml 900 ml 1100 ml # Bowel Movements 0 Result Diagram: 07/21/1752907/21/17529 Imaging Last 24 hours Impressions Thoracic Spine CT 07/19/17304 Signed Impressions: Service Date/Time: Wednesday, July 19, 2017 03:29 - CONCLUSION: 1. Fracture through superior T11. No retropulsion of posterior fragments or canal stenosis. 2. Right 11th rib fracture. Venkat Hong MD Pelvis X-Ray 07/19/17304 Signed Impressions: Service Date/Time: Wednesday, July 19, 2017 02:56 - CONCLUSION: Limited study without fracture. Venkat Hong MD Maxillofacial CT 07/19/17304 Signed Impressions: Service Date/Time: Wednesday, July 19, 2017 03:24 - CONCLUSION: 1. Fluid in the sphenoid sinuses greater on the right. 2. No facial fracture seen. Venkat Hong MD Lumbar Spine CT 07/19/17304 Signed Impressions: Service Date/Time: Wednesday, July 19, 2017 03:29 - CONCLUSION: 1. No lumbar vertebral fracture. 2. Disc bulges at L3-4 and L4-5 levels. 3. Right 11th rib fracture. Venkat Hong MD Head CT 07/19/17304 Signed Impressions: Service Date/Time: Wednesday, July 19, 2017 03:21 - CONCLUSION: 1. Cerebral atrophy and chronic ischemic small vessel vasculopathy. 2. Fluid in the sphenoid sinuses greater right. Venkat Hong MD Chest X-Ray 07/19/17304 Signed Impressions: Service Date/Time: Wednesday, July 19, 2017 02:56 - CONCLUSION: Left basilar atelectasis. Venkat Hong MD Chest CT 07/19/17304 Signed Impressions: Service Date/Time: Wednesday, July 19, 2017 03:29 - CONCLUSION: 1. T11 vertebral fracture. 2. Fracture of the right seventh rib. 3. 8mm nodule right lung. 4. Minimal ground glass densities in the right lower lobe. Venkat Hong MD Cervical Spine CT 07/19/17304 Signed Impressions: Service Date/Time: Wednesday, July 19, 2017 03:23 - CONCLUSION: 1. No fracture or subluxation. 2. Protrusions at C3-4 and C6-7. Venkat Hong MD Abdomen/Pelvis CT 07/19/175 Signed Impressions: Service Date/Time: Wednesday, July 19, 2017 03:29 - CONCLUSION: 1. Fractures of T11. No retropulsion of posterior fragments. 2. Right 11th rib fracture. 3. No abdominal visceral injury. Venkat Hong MD Radius/Ulna X-Ray 07/19/17 0000 Signed Impressions: Service Date/Time: Wednesday, July 19, 2017 02:56 - CONCLUSION: Mildly displaced fracture midshaft of ulna. Venkat Hong MD Radius/Ulna X-Ray 07/19/17 0000 Signed Impressions: Service Date/Time: Wednesday, July 19, 2017 02:56 - CONCLUSION: Fracture proximal/mid shaft of radius with mild displacement. Venkat Hong MD Humerus X-Ray 07/19/17 0000 Signed Impressions: Service Date/Time: Wednesday, July 19, 2017 02:56 - CONCLUSION: No fracture right humerus. Venkat Hong MD Humerus X-Ray 07/19/17 0000 Signed Impressions: Service Date/Time: Wednesday, July 19, 2017 02:56 - CONCLUSION: Fracture mid shaft of the humerus. Venkat Hong MD Objective Remarks Right upper extremity: Clean dry dressings intact with intact distal pulses and good capillary refills. Neurovascular intact distally Left upper extremity: Clean dry dressings intact with intact distal pulses. Good capillary refills. Neurovascularly intact distally Assessment & Plan Assessment and Plan Right radial shaft fracture with significant degloving and open wounds. Status post ORIF POD 2 Left forearm irrigation debridement and ORIF ulna shaft, irrigation debridement of left elbow with removal of radial head fragments. POD 2 Left midshaft humerus without any surgical treatment at this point Nonweightbearing bilateral upper extremities Daily dressing changes beginning POD 2 with bacitracin, Adaptic, 4 x 4's and Ayan wrap with ABDs Sling and swath at all times left upper extremity except for dressing changes Medical management for stabilization. Once patient is stable we will proceed with ORIF of left humeral shaft and left radial head replacement. likely early next week if cleared. Lovenox Bilateral SCDs Mery Holbrook MD Jul 21, 2017 08:14
[2017-07-21] MEDS: ENOXAPARIN SODIUM 40 MG/0.4 ML SYRINGE SQ SCH (08:20)
[2017-07-21] MEDS: LIDOCAINE HCL 5% PATCH T-DERMAL SCH (08:21)
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
[2017-07-21] MEDS: METOPROLOL TARTRATE 50 MG TAB PO SCH ×2 (09:00→23:23)
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
[2017-07-21] MEDS: fentaNYL 50 MCG/HR PATCH T-DERMAL SCH (13:39)
[2017-07-21] MEDS: DOCUSATE SODIUM 100 MG CAP PO SCH ×2 (13:40→23:23)
[2017-07-21] MEDS: PRAVASTATIN SOD 40 MG TAB PO SCH (13:40)
[2017-07-21] MEDS: VALSARTAN 40 MG TAB PO SCH (13:40)
[2017-07-21] MEDS: LACTULOSE SYRUP 20 GM/30 ML CUP PO SCH (13:40)
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
[2017-07-21] MEDS ORDERED: FUROSEMIDE 20 MG/2 ML VIAL IV PUSH ONE (18:00)
[2017-07-21] MEDS: REMOVE OLD LIDOCAINE PATCH T-DERMAL SCH (21:00)
[2017-07-21] MEDS: TAMSULOSIN HCL 0.4 MG CAP PO SCH (23:23)
[2017-07-21] MEDS: HEPARIN SODIUM - SQ 10,000 UNITS/ML VIAL SQ SCH (23:24)
[2017-07-22] VITALS (15 sets, daily range): BP systolic 117–163; BP diastolic 60–89; PULSE 94–116; RESP 15–30; TEMP 98.6–100.6; O2SAT 93–99
[2017-07-22] MEDS: RESP: ALBUTEROL 2.5 MG/IPRATROPIUM 0.5 MG NEB (SCH) NEB ×4 (03:48→21:52)
[2017-07-22] MEDS: CHLORHEXIDINE GLUCONATE 2 % 1 PACK (2 CLOTHS) TOP SCH ×2 (04:00→23:26)
[2017-07-22 05:00] LABS: AUTOMATED NEUTROPHIL # 9.4 TH/MM3 (1.8-7.7); BASOPHIL % 0.2 % (0.0-2.0); EOSINOPHIL % 0.2 % (0.0-4.0); HEMATOCRIT 34.3 % (39.0-51.0); HEMOGLOBIN 11.3 GM/DL (13.0-17.0); LYMPH % 4.3 % (9.0-44.0); LYMPHOCYTE # 0.5 TH/MM3 (1.0-4.8); MEAN CELL VOLUME 91.5 FL (80.0-100.0); MEAN CORPUSCULAR HEMOGLOBIN 30.3 PG (27.0-34.0); MEAN CORPUSCULAR HGB CONC 33.1 % (32.0-36.0); MEAN PLATELET VOLUME 9.5 FL (7.0-11.0); MONO % 9.1 % (0.0-8.0); NEUT % 86.2 % (16.0-70.0); PLATELET COUNT 85 TH/MM3 (150-450); RED BLOOD COUNT 3.75 MIL/MM3 (4.50-5.90); RED CELL DISTRIBUTION WIDTH 15.1 % (11.6-17.2); WHITE BLOOD COUNT 10.9 TH/MM3 (4.0-11.0)
[2017-07-22 05:38] LABS: ALBUMIN 2.2 GM/DL (3.4-5.0); ALT (GPT) LESS THAN 6 U/L (12-78); AST (GOT) 19 U/L (15-37); BICARBONATE 23.5 MEQ/L (21.0-32.0); BLOOD UREA NITROGEN 55 MG/DL (7-18); CHLORIDE 108 MEQ/L (98-107); CREATININE 2.48 MG/DL (0.60-1.30); GLOMERULAR FILTRATION RATE 25 ML/MIN (>89); GLUCOSE,RANDOM 255 MG/DL (74-106); SODIUM (NA) 140 MEQ/L (136-145)
[2017-07-22 05:40] LABS: ALKALINE PHOSPHATASE 94 U/L (45-117); TOTAL BILIRUBIN ADULT 0.6 MG/DL (0.2-1.0); TOTAL PROTEIN 5.2 GM/DL (6.4-8.2)
[2017-07-22] MEDS: PANTOPRAZOLE SODIUM 40 MG VIAL IVP SCH (06:02)
[2017-07-22] MEDS: ceFAZolin 2 GM PREMIX 50 ML IV SCH (06:03)
[2017-07-22] MEDS: METHOCARBAMOL 500 MG TAB PO SCH ×3 (06:03→23:26)
--- NOTE | 2017-07-22 06:03 | RADRPT ---
EXAM DATE/TIME: 07/22/2017 04:52 [place] COMPARISON: CHEST SINGLE AP, July 21, 2017, 5:02. INDICATIONS : Short of breath. MEDICAL HISTORY : None. SURGICAL HISTORY : None. ENCOUNTER: Subsequent ACUITY: 3 days PAIN SCORE: 0/10 LOCATION: Bilateral chest FINDINGS: A single view of the chest demonstrates bilateral pulmonary opacities greater in the lung bases. Righ t jugular central line in stable position. Heart enlarged. Pulmonary vascularity increased. CONCLUSION: Stable chest with bilateral pulmonary opacities. Venkat Hong MD on July 22, 2017 at 6:00 Board Certified Radiologist. This report was verified electronically.
--- NOTE | 2017-07-22 07:28 | PD.ORT.PN ---
Subjective Subjective Remarks POD 3 s/p ORIF left ulna and right radial shaft s/p left radial head fx s/p left periprosthetic humerus fx doing well. pain controlled. Objective Vitals Vital Signs Date Time Temp Pulse Resp B/P (MAP) Pulse Ox O2 Delivery O2 Flow Rate FiO2 07/22/17 02:00 103 07/22/17 00:00 111 07/22/17 00:00 100.0 112 30 143/87 (105) 96 07/21/17 22:00 102 07/21/17 21:07 99 Non-Rebreather 15.00 07/21/17 20:00 99.0 101 28 160/70 (100) 97 07/21/17 20:00 101 07/21/17 19:00 97 Non-Rebreather 100 07/21/17 18:00 103 07/21/17 16:40 90 Non-Rebreather 15.00 07/21/17 16:00 99.0 99 18 186/79 (114) 89 07/21/17 16:00 97 07/21/17 16:00 99 188/98 07/21/17 15:20 18 07/21/17 14:00 94 07/21/17 12:00 98.0 92 25 150/94 (112) 90 07/21/17 12:00 97 07/21/17 10:00 104 07/21/17 10:00 18 07/21/17 08:00 98.0 119 18 114/73 (87) 94 07/21/17 08:00 128 I/O 07/21/17 07/21/17 07/21/17 07/22/17 07/22/17 07/22/17 06:59 14:59 22:59 06:59 14:59 22:59 Intake Total 979 ml 210 ml Output Total 1100 ml 2500 ml Balance -121 ml 210 ml -2500 ml Intake Oral 440 ml IV Total 539 ml 210 ml Output Urine Total 1100 ml 2500 ml Result Diagram: 07/22/17 04507/22/17 045 Imaging Last 24 hours Impressions Thoracic Spine CT 07/19/17 0305 Signed Impressions: Service Date/Time: Wednesday, July 19, 2017 03:29 - CONCLUSION: 1. Fracture through superior T11. No retropulsion of posterior fragments or canal stenosis. 2. Right 11th rib fracture. Venkat F. Tocci, MD Pelvis X-Ray 07/19/17304 Signed Impressions: Service Date/Time: Wednesday, July 19, 2017 02:56 - CONCLUSION: Limited study without fracture. Venkat Hogn MD Maxillofacial CT 07/19/17304 Signed Impressions: Service Date/Time: Wednesday, July 19, 2017 03:24 - CONCLUSION: 1. Fluid in the sphenoid sinuses greater on the right. 2. No facial fracture seen. Venkat Hong MD Lumbar Spine CT 07/19/17304 Signed Impressions: Service Date/Time: Wednesday, July 19, 2017 03:29 - CONCLUSION: 1. No lumbar vertebral fracture. 2. Disc bulges at L3-4 and L4-5 levels. 3. Right 11th rib fracture. Venkat Hong MD Head CT 07/19/17304 Signed Impressions: Service Date/Time: Wednesday, July 19, 2017 03:21 - CONCLUSION: 1. Cerebral atrophy and chronic ischemic small vessel vasculopathy. 2. Fluid in the sphenoid sinuses greater right. Venkat Hong MD Chest X-Ray 07/19/17304 Signed Impressions: Service Date/Time: Wednesday, July 19, 2017 02:56 - CONCLUSION: Left basilar atelectasis. Venkat Hong MD Chest CT 07/19/17304 Signed Impressions: Service Date/Time: Wednesday, July 19, 2017 03:29 - CONCLUSION: 1. T11 vertebral fracture. 2. Fracture of the right seventh rib. 3. 8mm nodule right lung. 4. Minimal ground glass densities in the right lower lobe. Veknat Hong MD Cervical Spine CT 07/19/17304 Signed Impressions: Service Date/Time: Wednesday, July 19, 2017 03:23 - CONCLUSION: 1. No fracture or subluxation. 2. Protrusions at C3-4 and C6-7. Venkat Hong MD Abdomen/Pelvis CT 07/19/17304 Signed Impressions: Service Date/Time: Wednesday, July 19, 2017 03:29 - CONCLUSION: 1. Fractures of T11. No retropulsion of posterior fragments. 2. Right 11th rib fracture. 3. No abdominal visceral injury. Venkat Hong MD Radius/Ulna X-Ray 07/19/17 0000 Signed Impressions: Service Date/Time: Wednesday, July 19, 2017 02:56 - CONCLUSION: Mildly displaced fracture midshaft of ulna. Venkat Hong MD Radius/Ulna X-Ray 07/19/17 0000 Signed Impressions: Service Date/Time: Wednesday, July 19, 2017 02:56 - CONCLUSION: Fracture proximal/mid shaft of radius with mild displacement. Venkat Hong MD Humerus X-Ray 07/19/17 Signed Impressions: Service Date/Time: Wednesday, July 19, 2017 02:56 - CONCLUSION: No fracture right humerus. Venkat Hong MD Humerus X-Ray 07/19/17 0000 Signed Impressions: Service Date/Time: Wednesday, July 19, 2017 02:56 - CONCLUSION: Fracture mid shaft of the humerus. Venkat Hong MD Objective Remarks Right upper extremity: Clean dry dressings intact with intact distal pulses and good capillary refills. Neurovascular intact distally Left upper extremity: Clean dry dressings intact with intact distal pulses. Good capillary refills. Neurovascularly intact distally Assessment & Plan Assessment and Plan 1) Right radial shaft fracture with significant degloving and open wounds. Status post ORIF POD 3 2) Left forearm irrigation debridement and ORIF ulna shaft, irrigation debridement of left elbow with removal of radial head fragments. POD 3 3) Left periprosthetic midshaft humerus fx Nonweightbearing bilateral upper extremities Daily dressing changes beginning POD 2 with bacitracin, Adaptic, 4 x 4's and Ayan wrap with ABDs Sling and swath at all times left upper extremity except for dressing changes Medical management for stabilization. Once patient is stable we will proceed with ORIF of left humeral shaft and left radial head replacement. likely early next week if cleared. plan for possible ORIF of left humerus and radial head tomorrow. need clearance from medical and neuro that ok for surgery and ok to go lateral position consents on chart Ej Leslie Jul 22, 2017 07:28
--- NOTE | 2017-07-22 08:17 | HHI.PR ---
Neuropsych Emotional Emotional: Intact: Emotional, Anxious/Fearful, Depressed/Sad, Hostile/Resentful , Irritable/Angry/Frustrate, Labile, Constricted/Blunted Behavior Behavior: Intact: Behavior, Coping/Acceptance, Cooperative w/ Treatment, Motivation, Frustration Tolerance/[place], Impulsive/Agitated, Suicidal/Homicidal Risk Cognitive Cognitive: Unable to Asses: Cognitive, Attention/Concentration, Confused/ Orientation, Insight/Awareness, Judgement/Problem-Solving, Memory Psychosocial Psychosocial: Intact: Psychosocial, Family/Other Adjustment, Realistic Expectation, Self-Esteem/Confidence Progress Notes/Response to Tx Contents of Sessions: Adjustment Time with Patient: 15 minutes Premorbid psychological status Premorbid Cognitive, Emotional and Behavioral Status: Stable. The patient has high school years of education and a solid work history prior to this injury, now retired. The patient has no psychiatric difficulties, as described above. Substance abuse history is unknown. Behavioral Reactions of Patient and Family/Support System: Stable. The patient s family is experiencing ongoing issues of adjustment given the nature of the injury, and this aspect of recovery will require ongoing monitoring. Emotional/Behavioral Status of Patient and Family/Support System: Stable. Pertinent issues, if appropriate to this patients clinical care, are described in detail above. Maximizing acute care outcome It is recommended that the patient be monitored for emergent behavioral impulsivity as the medical condition evolves. This patients neuropathological challenges may limit their rehabilitation potential going forward, and these challenges will require specialized therapeutic skills to maximize outcome. Anticipated Problems Ongoing areas of concern will include behavioral impulsivity, lack of insight and judgment, which is expected to improve with time and treatment. Presently , the patient is awake, alert and following commands. Treatment Plan This clinician will continue to follow with you throughout the course of this patients acute care treatment, and I will be available to meet with the patient s family/support system to facilitate their understanding and the ongoing care of their family member. The goals of neuropsychological intervention shall be both educational and supportive to the family/support system as is deemed clinically appropriate. 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 This patient may likely have some underlying level of cognitive dysfunction that will be exacerbated by accident. Diagnosis: (1) Concussion with brief (less than one hour) loss of consciousness Status: Acute (2) Mild neurocognitive disorder Status: Acute Progress Note Narrative Ongoing follow-up of patient seen during daily trauma rounds. This is day 3 post injury. The patient is awake, alert and following commands. However, he is extremely hard of hearing, in spite of his hearing aids, and as such a clear delineation of his neurocognitive status is unclear at this time other than what has already been performed. He is stable from a neurobehavioral standpoint. I will continue to follow. Martin Xavier PhD Jul 22, 2017 8:17 am
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
[2017-07-22] MEDS: LIDOCAINE HCL 5% PATCH T-DERMAL SCH (08:38)
[2017-07-22] MEDS: HEPARIN SODIUM - SQ 10,000 UNITS/ML VIAL SQ SCH ×3 (08:38→23:26)
[2017-07-22] MEDS: METOPROLOL TARTRATE 50 MG TAB PO SCH ×2 (08:39→23:25)
[2017-07-22] MEDS: PRAVASTATIN SOD 40 MG TAB PO SCH (08:39)
[2017-07-22] MEDS: VALSARTAN 40 MG TAB PO SCH (08:39)
[2017-07-22] MEDS: DOCUSATE SODIUM 100 MG CAP PO SCH ×2 (08:40→23:24)
[2017-07-22] MEDS: LACTULOSE SYRUP 20 GM/30 ML CUP PO SCH (09:00)
[2017-07-22] MEDS ORDERED: POTASSIUM CHLORIDE 20 MEQ CONTROLLED RELEASE TAB PO SCH (09:00)
[2017-07-22] MEDS ORDERED: FUROSEMIDE 20 MG TAB PO SCH (09:00)
[2017-07-22] MEDS ORDERED: VALSARTAN 160 MG TAB PO SCH (09:30)
[2017-07-22] MEDS: INSULIN ASPART SUPPLEMENTAL SCALE SQ SCH ×2 (10:00→12:39)
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
[2017-07-22] MEDS: hydrALAZINE HCL 20 MG/ML VIAL IV PUSH PRN (10:30)
[2017-07-22] MEDS ORDERED: VALSARTAN 80 MG TAB PO ONE (11:00)
[2017-07-22] MEDS ORDERED: VALSARTAN 40 MG TAB PO ONE (11:00)
[2017-07-22] MEDS: HYDROCHLOROTHIAZIDE 12.5 MG CAP PO SCH (11:59)
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
[2017-07-22] MEDS: REMOVE OLD LIDOCAINE PATCH T-DERMAL SCH (20:38)
[2017-07-22] MEDS ORDERED: INSULIN GLARGINE 1,000 UNITS/10 ML VIAL SQ SCH (22:00)
[2017-07-22] MEDS: TAMSULOSIN HCL 0.4 MG CAP PO SCH (23:25)
[2017-07-23] VITALS (7 sets, daily range): BP systolic 110–121; BP diastolic 64–79; PULSE 97–122; RESP 17–21; TEMP 98.8–99.8; O2SAT 95–100
[2017-07-23] MEDS: RESP: ALBUTEROL 2.5 MG/IPRATROPIUM 0.5 MG NEB (SCH) NEB ×4 (03:56→21:17)
[2017-07-23] MEDS: METHOCARBAMOL 500 MG TAB PO SCH ×3 (05:48→22:00)
[2017-07-23 05:49] LABS: AUTOMATED NEUTROPHIL # 8.7 TH/MM3 (1.8-7.7); BASOPHIL % 0.1 % (0.0-2.0); EOSINOPHIL # 0.1 TH/MM3 (0-0.4); EOSINOPHIL % 0.8 % (0.0-4.0); HEMATOCRIT 32.1 % (39.0-51.0); HEMOGLOBIN 10.7 GM/DL (13.0-17.0); LYMPH % 5.7 % (9.0-44.0); LYMPHOCYTE # 0.6 TH/MM3 (1.0-4.8); MEAN CELL VOLUME 91.3 FL (80.0-100.0); MEAN CORPUSCULAR HEMOGLOBIN 30.5 PG (27.0-34.0); MEAN CORPUSCULAR HGB CONC 33.4 % (32.0-36.0); MEAN PLATELET VOLUME 9.9 FL (7.0-11.0); MONO % 10.3 % (0.0-8.0); MONOCYTE # 1.1 TH/MM3 (0-0.9); NEUT % 83.1 % (16.0-70.0); PLATELET COUNT 84 TH/MM3 (150-450); RED BLOOD COUNT 3.52 MIL/MM3 (4.50-5.90); RED CELL DISTRIBUTION WIDTH 15.1 % (11.6-17.2); WHITE BLOOD COUNT 10.5 TH/MM3 (4.0-11.0)
[2017-07-23 06:00] LABS: ALT (GPT) LESS THAN 6 U/L (12-78); AST (GOT) 12 U/L (15-37); BICARBONATE 26.4 MEQ/L (21.0-32.0); BLOOD UREA NITROGEN 64 MG/DL (7-18); CALCIUM 8.3 MG/DL (8.5-10.1); CHLORIDE 111 MEQ/L (98-107); GLOMERULAR FILTRATION RATE 26 ML/MIN (>89); GLUCOSE,RANDOM 244 MG/DL (74-106); SODIUM (NA) 144 MEQ/L (136-145)
[2017-07-23 06:02] LABS: ALKALINE PHOSPHATASE 100 U/L (45-117); TOTAL BILIRUBIN ADULT 0.7 MG/DL (0.2-1.0); TOTAL PROTEIN 5.4 GM/DL (6.4-8.2)
--- NOTE | 2017-07-23 07:42 | PD.ORT.PN ---
Subjective Subjective Remarks POD 4 s/p ORIF left ulna and right radial shaft s/p left radial head fx s/p left periprosthetic humerus fx doing well. pain controlled. Objective Vitals Vital Signs Date Time Temp Pulse Resp B/P (MAP) Pulse Ox O2 Delivery O2 Flow Rate FiO2 07/23/17 06:00 114 07/23/17 04:00 106 07/23/17 04:00 99.1 106 18 119/77 (91) 95 07/23/17 02:00 97 07/23/17 00:00 104 07/23/17 00:00 98.8 104 17 118/64 (82) 96 07/22/17 22:00 94 07/22/17 21:57 93 Nasal Cannula 4.00 07/22/17 20:00 98.6 106 15 119/73 (88) 95 07/22/17 20:00 106 07/22/17 19:00 94 Nasal Cannula 4.00 07/22/17 18:00 99 07/22/17 18:00 94 Nasal Cannula 4.00 07/22/17 16:00 98.8 106 23 117/60 (79) 97 07/22/17 16:00 106 07/22/17 14:00 108 07/22/17 13:13 94 Simple Mask 8.00 07/22/17 13:04 21 07/22/17 12:50 98 Simple Mask 8.00 07/22/17 12:00 108 07/22/17 12:00 100.6 108 30 158/75 (102) 99 07/22/17 10:00 114 07/22/17 09:01 94 Non-Rebreather 15.00 07/22/17 08:00 116 07/22/17 08:00 99.9 116 23 163/89 (113) 96 I/O 07/22/17 07/22/17 07/22/17 07/23/17 07/23/17 07/23/17 07:00 15:00 23:00 07:00 15:00 23:00 Intake Total 240 ml 450 ml 240 ml Output Total 1500 ml 1350 ml 800 ml Balance -1260 ml -900 ml -560 ml Intake Oral 240 ml 450 ml 240 ml Output Urine Total 1500 ml 1350 ml 800 ml Stool Total 0 ml 0 ml Result Diagram: 07/23/1751907/23/17519 Imaging Last 24 hours Impressions Thoracic Spine CT 07/19/17304 Signed Impressions: Service Date/Time: Wednesday, July 19, 2017 03:29 - CONCLUSION: 1. Fracture through superior T11. No retropulsion of posterior fragments or canal stenosis. 2. Right 11th rib fracture. Venkat Hong MD Pelvis X-Ray 07/19/17304 Signed Impressions: Service Date/Time: Wednesday, July 19, 2017 02:56 - CONCLUSION: Limited study without fracture. Venkat Hong MD Maxillofacial CT 07/19/17304 Signed Impressions: Service Date/Time: Wednesday, July 19, 2017 03:24 - CONCLUSION: 1. Fluid in the sphenoid sinuses greater on the right. 2. No facial fracture seen. Venkat Hong MD Lumbar Spine CT 07/19/17304 Signed Impressions: Service Date/Time: Wednesday, July 19, 2017 03:29 - CONCLUSION: 1. No lumbar vertebral fracture. 2. Disc bulges at L3-4 and L4-5 levels. 3. Right 11th rib fracture. Venkat Hong MD Head CT 07/19/17304 Signed Impressions: Service Date/Time: Wednesday, July 19, 2017 03:21 - CONCLUSION: 1. Cerebral atrophy and chronic ischemic small vessel vasculopathy. 2. Fluid in the sphenoid sinuses greater right. Venkat Hong MD Chest X-Ray 07/19/17304 Signed Impressions: Service Date/Time: Wednesday, July 19, 2017 02:56 - CONCLUSION: Left basilar atelectasis. Venkat Hong MD Chest CT 07/19/17304 Signed Impressions: Service Date/Time: Wednesday, July 19, 2017 03:29 - CONCLUSION: 1. T11 vertebral fracture. 2. Fracture of the right seventh rib. 3. 8mm nodule right lung. 4. Minimal ground glass densities in the right lower lobe. Venkat Hong MD Cervical Spine CT 07/19/17304 Signed Impressions: Service Date/Time: Wednesday, July 19, 2017 03:23 - CONCLUSION: 1. No fracture or subluxation. 2. Protrusions at C3-4 and C6-7. Venkat Hong MD Abdomen/Pelvis CT 07/19/17 0305 Signed Impressions: Service Date/Time: Wednesday, July 19, 2017 03:29 - CONCLUSION: 1. Fractures of T11. No retropulsion of posterior fragments. 2. Right 11th rib fracture. 3. No abdominal visceral injury. Venkat Hong MD Radius/Ulna X-Ray 07/19/17 0000 Signed Impressions: Service Date/Time: Wednesday, July 19, 2017 02:56 - CONCLUSION: Mildly displaced fracture midshaft of ulna. Venkat Hong MD Radius/Ulna X-Ray 07/19/17 0000 Signed Impressions: Service Date/Time: Wednesday, July 19, 2017 02:56 - CONCLUSION: Fracture proximal/mid shaft of radius with mild displacement. Venkat Hong MD Humerus X-Ray 07/19/17 0000 Signed Impressions: Service Date/Time: Wednesday, July 19, 2017 02:56 - CONCLUSION: No fracture right humerus. Venkat Hong MD Humerus X-Ray 07/19/17 0000 Signed Impressions: Service Date/Time: Wednesday, July 19, 2017 02:56 - CONCLUSION: Fracture mid shaft of the humerus. Venkat Hong MD Objective Remarks Right upper extremity: Clean dry dressings intact with intact distal pulses and good capillary refills. Neurovascular intact distally Left upper extremity: Clean dry dressings intact with intact distal pulses. Good capillary refills. Neurovascularly intact distally Assessment & Plan Assessment and Plan 1) Right radial shaft fracture with significant degloving and open wounds. Status post ORIF POD 4 2) Left forearm irrigation debridement and ORIF ulna shaft, irrigation debridement of left elbow with removal of radial head fragments. POD 4 3) Left periprosthetic midshaft humerus fx Nonweightbearing bilateral upper extremities Daily dressing changes beginning POD 2 with bacitracin, Adaptic, 4 x 4's and Ayan wrap with ABDs Sling and swath at all times left upper extremity except for dressing changes Medical management for stabilization. Once patient is stable we will proceed with ORIF of left humeral shaft and left radial head replacement. likely early next week if cleared. plan for possible ORIF of left humerus and radial head today. clear liquid diet til 1100 Ej Leslie Jul 23, 2017 07:42
[2017-07-23 07:51] LABS: BANDS 6 % (0-6); LYMPHOCYTES 4 % (9-44); MONOCYTES 5 % (0-8); NEUTROPHIL # MANUAL DIFF 9.6 TH/MM3 (1.8-7.7); POLYS (SEG NEUTROPHILS) 85 % (16-70)
[2017-07-23 07:54] LABS: ACANTHOCYTES 1+ (NORMAL); KERATOCYTES 1+ (NORMAL)
[2017-07-23 07:55] LABS: OVALOCYTES 1+ (NORMAL)
[2017-07-23] MEDS: INSULIN ASPART SUPPLEMENTAL SCALE SQ SCH ×4 (08:00→21:00)
--- NOTE | 2017-07-23 08:10 | HHI.PR ---
Neuropsych Emotional Emotional: Intact: Emotional, Anxious/Fearful, Depressed/Sad, Hostile/Resentful , Irritable/Angry/Frustrate, Labile, Constricted/Blunted Behavior Behavior: Intact: Behavior, Coping/Acceptance, Cooperative w/ Treatment, Motivation, Frustration Tolerance/[place], Impulsive/Agitated, Suicidal/Homicidal Risk Cognitive Cognitive: Mild: Cognitive, Attention/Concentration, Confused/Orientation, Insight/Awareness, Judgement/Problem-Solving, Memory Progress Notes/Response to Tx Contents of Sessions: Adjustment Time with Patient: 15 minutes Premorbid psychological status Premorbid Cognitive, Emotional and Behavioral Status: Stable. The patient has high school years of education and a solid work history prior to this injury, now retired. The patient has no psychiatric difficulties, as described above. Substance abuse history is unknown. Behavioral Reactions of Patient and Family/Support System: Stable. The patient s family is experiencing ongoing issues of adjustment given the nature of the injury, and this aspect of recovery will require ongoing monitoring. Emotional/Behavioral Status of Patient and Family/Support System: Stable. Pertinent issues, if appropriate to this patients clinical care, are described in detail above. Maximizing acute care outcome It is recommended that the patient be monitored for emergent behavioral impulsivity as the medical condition evolves. This patients neuropathological challenges may limit their rehabilitation potential going forward, and these challenges will require specialized therapeutic skills to maximize outcome. Anticipated Problems Ongoing areas of concern will include behavioral impulsivity, lack of insight and judgment, which is expected to improve with time and treatment. Presently , the patient is awake, alert and following commands. Treatment Plan This clinician will continue to follow with you throughout the course of this patients acute care treatment, and I will be available to meet with the patient s family/support system to facilitate their understanding and the ongoing care of their family member. The goals of neuropsychological intervention shall be both educational and supportive to the family/support system as is deemed clinically appropriate. 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 This patient may likely have some underlying level of cognitive dysfunction that will be exacerbated by accident. Diagnosis: (1) Concussion with brief (less than one hour) loss of consciousness Status: Resolved (2) Mild neurocognitive disorder Status: Chronic Progress Note Narrative Ongoing follow-up of patient seen during daily trauma rounds. This is day 4 post injury. The patient is improving, appearing to have cognitive issues but are primarily related to hearing deficits and/or chronic neurodegenerative changes. His renal functioning is fluctuating. He appears to be at [place]. I will continue to follow. Martin Xavier PhD Jul 23, 2017 8:10 am
--- NOTE | 2017-07-23 08:10 | HHI.PR ---
Neuropsych Emotional Emotional: Intact: Emotional, Anxious/Fearful, Depressed/Sad, Hostile/Resentful , Irritable/Angry/Frustrate, Labile, Constricted/Blunted Behavior Behavior: Intact: Behavior, Coping/Acceptance, Cooperative w/ Treatment, Motivation, Frustration Tolerance/[place], Impulsive/Agitated, Suicidal/Homicidal Risk Cognitive Cognitive: Mild: Cognitive, Attention/Concentration, Confused/Orientation, Insight/Awareness, Judgement/Problem-Solving, Memory Progress Notes/Response to Tx Contents of Sessions: Adjustment Time with Patient: 15 minutes Premorbid psychological status Premorbid Cognitive, Emotional and Behavioral Status: Stable. The patient has high school years of education and a solid work history prior to this injury, now retired. The patient has no psychiatric difficulties, as described above. Substance abuse history is unknown. Behavioral Reactions of Patient and Family/Support System: Stable. The patient s family is experiencing ongoing issues of adjustment given the nature of the injury, and this aspect of recovery will require ongoing monitoring. Emotional/Behavioral Status of Patient and Family/Support System: Stable. Pertinent issues, if appropriate to this patients clinical care, are described in detail above. Maximizing acute care outcome It is recommended that the patient be monitored for emergent behavioral impulsivity as the medical condition evolves. This patients neuropathological challenges may limit their rehabilitation potential going forward, and these challenges will require specialized therapeutic skills to maximize outcome. Anticipated Problems Ongoing areas of concern will include behavioral impulsivity, lack of insight and judgment, which is expected to improve with time and treatment. Presently , the patient is awake, alert and following commands. Treatment Plan This clinician will continue to follow with you throughout the course of this patients acute care treatment, and I will be available to meet with the patient s family/support system to facilitate their understanding and the ongoing care of their family member. The goals of neuropsychological intervention shall be both educational and supportive to the family/support system as is deemed clinically appropriate. 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 This patient may likely have some underlying level of cognitive dysfunction that will be exacerbated by accident. Diagnosis: (1) Concussion with brief (less than one hour) loss of consciousness Status: Resolved (2) Mild neurocognitive disorder Status: Chronic Progress Note Narrative Ongoing follow-up of patient seen during daily trauma rounds. This is day 4 post injury. The patient is improving, appearing to have cognitive issues but are primarily related to hearing deficits and/or chronic neurodegenerative changes. His renal functioning is fluctuating. He appears to be at [place] [facility]. I will continue to follow. Martin Xavier PhD Jul 23, 2017 8:10 am
--- NOTE | 2017-07-23 08:10 | HHI.PR ---
Neuropsych Emotional Emotional: Intact: Emotional, Anxious/Fearful, Depressed/Sad, Hostile/Resentful , Irritable/Angry/Frustrate, Labile, Constricted/Blunted Behavior Behavior: Intact: Behavior, Coping/Acceptance, Cooperative w/ Treatment, Motivation, Frustration Tolerance/[place], Impulsive/Agitated, Suicidal/Homicidal Risk Cognitive Cognitive: Mild: Cognitive, Attention/Concentration, Confused/Orientation, Insight/Awareness, Judgement/Problem-Solving, Memory Progress Notes/Response to Tx Contents of Sessions: Adjustment Time with Patient: 15 minutes Premorbid psychological status Premorbid Cognitive, Emotional and Behavioral Status: Stable. The patient has high school years of education and a solid work history prior to this injury, now retired. The patient has no psychiatric difficulties, as described above. Substance abuse history is unknown. Behavioral Reactions of Patient and Family/Support System: Stable. The patient s family is experiencing ongoing issues of adjustment given the nature of the injury, and this aspect of recovery will require ongoing monitoring. Emotional/Behavioral Status of Patient and Family/Support System: Stable. Pertinent issues, if appropriate to this patients clinical care, are described in detail above. Maximizing acute care outcome It is recommended that the patient be monitored for emergent behavioral impulsivity as the medical condition evolves. This patients neuropathological challenges may limit their rehabilitation potential going forward, and these challenges will require specialized therapeutic skills to maximize outcome. Anticipated Problems Ongoing areas of concern will include behavioral impulsivity, lack of insight and judgment, which is expected to improve with time and treatment. Presently , the patient is awake, alert and following commands. Treatment Plan This clinician will continue to follow with you throughout the course of this patients acute care treatment, and I will be available to meet with the patient s family/support system to facilitate their understanding and the ongoing care of their family member. The goals of neuropsychological intervention shall be both educational and supportive to the family/support system as is deemed clinically appropriate. 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 This patient may likely have some underlying level of cognitive dysfunction that will be exacerbated by accident. Diagnosis: (1) Concussion with brief (less than one hour) loss of consciousness Status: Resolved (2) Mild neurocognitive disorder Status: Chronic Progress Note Narrative Ongoing follow-up of patient seen during daily trauma rounds. This is day 4 post injury. The patient is improving, appearing to have cognitive issues but are primarily related to hearing deficits and/or chronic neurodegenerative changes. His renal functioning is fluctuating. He appears to be at [place] [facility]. I will continue to follow. Martin Xavier PhD Jul 23, 2017 8:10 am
[2017-07-23] MEDS: DOCUSATE SODIUM 100 MG CAP PO SCH ×2 (08:25→21:00)
[2017-07-23] MEDS: FAMOTIDINE 20 MG TAB PO SCH ×2 (08:25→21:00)
[2017-07-23] MEDS: METOPROLOL TARTRATE 50 MG TAB PO SCH ×2 (08:25→21:00)
[2017-07-23] MEDS: PRAVASTATIN SOD 40 MG TAB PO SCH (08:25)
[2017-07-23] MEDS: HYDROCHLOROTHIAZIDE 12.5 MG CAP PO SCH (08:26)
[2017-07-23] MEDS: HEPARIN SODIUM - SQ 10,000 UNITS/ML VIAL SQ SCH ×2 (08:26→21:00)
[2017-07-23] MEDS: LACTULOSE SYRUP 20 GM/30 ML CUP PO SCH (08:26)
[2017-07-23] MEDS: PILL SPLITTER OTHER PRN (08:30)
[2017-07-23] MEDS: LIDOCAINE HCL 5% PATCH T-DERMAL SCH (08:50)
[2017-07-23] MEDS ORDERED: VALSARTAN 160 MG TAB PO SCH (09:00)
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
[2017-07-23] MEDS: SODIUM CHLOR 0.9% 1000 ML INJ 1,000 ML IV SCH (12:00)
[2017-07-23 13:29] LABS: AMORPHOUS SEDIMENT, URINE RARE; BACTERIA, URINE OCC /hpf; BILIRUBIN, URINE NEG (NEG); BLOOD, URINE MOD (NEG); GLUCOSE,URINE 1000 mg/dL (NEG); HYALINE CAST, URINE 4 /lpf (RARE); KETONE, URINE NEG (NEG); MUCUS URINE FEW /lpf (OCC); NITRITE,URINE NEG (NEG); PH, URINE 5.5 (5.0-8.5); SQUAMOUS EPITHELIAL CELL URINE 2 /hpf (0-5); URINE COLOR YELLOW (YELLW/STRAW); URINE LEUKOCYTE ESTERASE NEG (NEG)
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
[2017-07-23] MEDS ORDERED: GENTAMICIN SULFATE 80 MG/2 ML VIAL ONE (15:18)
[2017-07-23] MEDS ORDERED: ceFAZolin 2 GM PREMIX 50 ML ONE (15:24)
[2017-07-23] MEDS ORDERED: VANCOMYCIN 500 MG VIAL ONE (15:24)
[2017-07-23 15:47] LABS: HEMOGLOBIN A1C 7.3 % (4.3-6.0)
[2017-07-23] MEDS: LORATADINE 10 MG TAB PO SCH (16:00)
[2017-07-23] MEDS ORDERED: VASOPRESSIN 20 UNITS/ML VIAL (IVTITR) ONE (16:47)
[2017-07-23] MEDS ORDERED: MORPHINE SULFATE 4 MG/ML INJ IV PUSH PRN (18:30)
[2017-07-23] MEDS ORDERED: SODIUM CHLORIDE 0.9% FLUSH 5 ML FLUSH IVF PRN (18:30)
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
[2017-07-23] MEDS ORDERED: ERGOCALCIFEROL (VIT D2) 50,000 UNIT CAP PO SCH (19:00)
[2017-07-23] MEDS ORDERED: DO NOT ADM ANY ANTICOAGULANT DRUGS PRN (19:10)
--- NOTE | 2017-07-23 19:21 | RADRPT ---
EXAM DATE/TIME: 07/23/2017 18:09 [facility] COMPARISON: HUMERUS LEFT (1 VW), July 19, 2017, 2:56. HUMERUS RIGHT (1 VW), July 19, 2017, 2:56. INDICATIONS : Left Humerus ORIF. MEDICAL HISTORY : None. SURGICAL HISTORY : None. ENCOUNTER: Initial ACUITY: 1 day PAIN SCORE: 0/10 LOCATION: Left Humerus FINDINGS: Side plate and multiple screws traverse the humerus with excellent anatomical alignment of the fractu re fragments. CONCLUSION: Intact postsurgical changes for technique. Danuta Gómez MD on July 23, 2017 at 19:19 Board Certified Radiologist. This report was verified electronically.
[2017-07-23] MEDS ORDERED: MORPHINE SULFATE 8 MG/ML INJ ONE (19:41)
[2017-07-23] MEDS ORDERED: HYDROmorphone HCL PF 1 MG/ML VIAL ONE (19:49)
[2017-07-23] MEDS ORDERED: METOPROLOL TARTRATE 5 MG/5 ML VIAL IV PUSH PRN (20:05)
[2017-07-23] MEDS ORDERED: METOPROLOL TARTRATE 5 MG/5 ML VIAL ONE (20:17)
[2017-07-23] MEDS: INSULIN DETEMIR 100 UNITS/ML VIAL SQ SCH (21:00)
[2017-07-23] MEDS: SODIUM CHLORIDE 0.9% FLUSH 5 ML FLUSH IVF SCH (21:00)
[2017-07-23] MEDS: REMOVE OLD LIDOCAINE PATCH T-DERMAL SCH (21:00)
[2017-07-23] MEDS: TAMSULOSIN HCL 0.4 MG CAP PO SCH (21:00)
--- NOTE | 2017-07-23 21:28 | EKG ---
Date Performed: 07/23/2017 Time Performed: 20:22:16 PTAGE: 77 years EKG: ATRIAL FIBRILLATION WITH RAPID VENTRICULAR RESPONSE ST DEVIATION AND MODERATE T-WAVE ABNORM ALITY ABNORMAL ECG PREVIOUS TRACING : 07/19/2017 08.21 Compared to the previous tracing rate faster DOCTOR: Pablo Harper Interpretating Date/Time 07/23/2017 21:27:11
--- NOTE | 2017-07-23 21:28 | EKG ---
Date Performed: 07/23/2017 Time Performed: 20:22:16 PTAGE: 77 years EKG: ATRIAL FIBRILLATION WITH RAPID VENTRICULAR RESPONSE ST DEVIATION AND MODERATE T-WAVE ABNORM ALITY ABNORMAL ECG PREVIOUS TRACING : 07/19/2017 08.21 Compared to the previous tracing rate faster DOCTOR: Pablo aHrper Interpretating Date/Time 07/23/2017 21:27:11
[2017-07-24] VITALS (18 sets, daily range): BP systolic 142–167; BP diastolic 63–97; PULSE 94–151; RESP 15–29; TEMP 97.4–98.9; O2SAT 93–100
[2017-07-24] MEDS: SODIUM CHLOR 0.9% 1000 ML INJ 1,000 ML IV SCH ×2 (01:28→13:13)
[2017-07-24] MEDS: CHLORHEXIDINE GLUCONATE 2 % 1 PACK (2 CLOTHS) TOP SCH (01:31)
[2017-07-24] MEDS: ceFAZolin 2 GM PREMIX 50 ML IV SCH ×3 (01:34→17:00)
[2017-07-24] MEDS: RESP: ALBUTEROL 2.5 MG/IPRATROPIUM 0.5 MG NEB (SCH) NEB ×4 (04:04→20:10)
[2017-07-24] MEDS: hydrALAZINE HCL 20 MG/ML VIAL IV PUSH PRN (04:25)
[2017-07-24] MEDS: METHOCARBAMOL 500 MG TAB PO SCH ×3 (04:25→21:25)
[2017-07-24] MEDS: HYDROmorphone HCL PF 1 MG/ML VIAL IV PRN ×2 (04:34→09:29)
[2017-07-24 05:37] LABS: AUTOMATED NEUTROPHIL # 8.9 TH/MM3 (1.8-7.7); BASOPHIL % 0.1 % (0.0-2.0); EOSINOPHIL # 0.1 TH/MM3 (0-0.4); EOSINOPHIL % 0.8 % (0.0-4.0); HEMATOCRIT 34.2 % (39.0-51.0); HEMOGLOBIN 11.6 GM/DL (13.0-17.0); LYMPHOCYTE # 0.5 TH/MM3 (1.0-4.8); MEAN CELL VOLUME 90.8 FL (80.0-100.0); MEAN CORPUSCULAR HEMOGLOBIN 30.9 PG (27.0-34.0); MEAN PLATELET VOLUME 10.2 FL (7.0-11.0); MONO % 9.6 % (0.0-8.0); NEUT % 84.5 % (16.0-70.0); PLATELET COUNT 80 TH/MM3 (150-450); RED BLOOD COUNT 3.76 MIL/MM3 (4.50-5.90); RED CELL DISTRIBUTION WIDTH 15.1 % (11.6-17.2); WHITE BLOOD COUNT 10.5 TH/MM3 (4.0-11.0)
[2017-07-24 05:48] LABS: ALT (GPT) LESS THAN 6 U/L (12-78); AST (GOT) 14 U/L (15-37); BICARBONATE 24.2 MEQ/L (21.0-32.0); BLOOD UREA NITROGEN 61 MG/DL (7-18); CALCIUM 8.2 MG/DL (8.5-10.1); CHLORIDE 112 MEQ/L (98-107); CREATININE 2.18 MG/DL (0.60-1.30); GLOMERULAR FILTRATION RATE 30 ML/MIN (>89); GLUCOSE,RANDOM 274 MG/DL (74-106); SODIUM (NA) 146 MEQ/L (136-145)
[2017-07-24 05:51] LABS: COMPLEMENT C3 133 MG/DL (90-180); COMPLEMENT C4 31 MG/DL (10-40)
[2017-07-24] MEDS: niCARdipine 25 MG/NS 250 ML Vial2Bag or IV room IV PRN ×2 (06:00)
[2017-07-24] MEDS: DILTIAZEM INJ 125 MG in SODIUM CHLORIDE 0.9% INJ 100 ML IV PRN ×2 (06:00→16:28)
[2017-07-24 06:07] LABS: ALKALINE PHOSPHATASE 103 U/L (45-117); TOTAL BILIRUBIN ADULT 0.5 MG/DL (0.2-1.0); TOTAL PROTEIN 5.4 GM/DL (6.4-8.2)
--- NOTE | 2017-07-24 07:03 | PD.ORT.PN ---
Subjective Subjective Remarks POD 5 s/p ORIF left ulna and right radial shaft s/p left radial head fx POD 1 s/p ORIF left periprosthetic humerus fx doing well. pain controlled. Objective Vitals Vital Signs Date Time Temp Pulse Resp B/P (MAP) Pulse Ox O2 Delivery O2 Flow Rate FiO2 07/24/17 04:00 98.2 110 17 167/86 (113) 98 07/24/17 02:00 105 07/24/17 00:00 114 07/24/17 00:00 98.6 114 20 142/97 (112) 99 07/23/17 23:00 98 Nasal Cannula 4.00 07/23/17 22:15 113 20 147/96 (113) 96 Nasal Cannula 4 07/23/17 22:00 119 19 140/82 (101) 95 Nasal Cannula 4 07/23/17 21:45 97 20 142/77 (98) 97 Nasal Cannula 4 07/23/17 21:30 108 21 144/61 (88) 96 Nasal Cannula 4 07/23/17 21:15 122 20 149/81 (103) 95 Simple Mask 10 07/23/17 21:00 128 20 128/90 (103) 100 Simple Mask 10 07/23/17 20:45 123 20 143/90 (107) 100 Simple Mask 10 07/23/17 20:30 133 26 123/97 (106) 100 Simple Mask 10 07/23/17 20:15 154 22 156/85 (108) 100 Simple Mask 10 07/23/17 20:00 154 26 142/63 (89) 99 Simple Mask 10 07/23/17 19:45 150 24 100/53 (69) 97 Simple Mask 10 07/23/17 19:30 131 20 110/63 (79) 89 Nasal Cannula 4 07/23/17 19:12 98.5 130 20 123/68 (86) 99 Simple Mask 10 07/23/17 12:00 119 07/23/17 12:00 99.1 119 21 110/76 (87) 97 07/23/17 09:46 100 Nasal Cannula 4.00 07/23/17 08:00 99.8 122 19 121/79 (93) 97 07/23/17 08:00 97 Nasal Cannula 4.00 07/23/17 08:00 122 I/O 10/24/17 1007/23/17 07/24/17 07/24/17 07/24/17 07:00 15:00 23:00 07:00 15:00 23:00 Intake Total 240 ml 204 ml 50 ml Output Total 800 ml 300 ml 800 ml Balance -560 ml -96 ml -750 ml Intake Oral 240 ml 0 ml IV Total 204 ml 50 ml Output Urine Total 800 ml 300 ml 800 ml Stool Total 0 ml Result Diagram: 07/24/17 0445 07/24/17 0445 Imaging Last 24 hours Impressions [address] Spine CT 07/19/17304 Signed Impressions: Service Date/Time: Wednesday, July 19, 2017 03:29 - CONCLUSION: 1. Fracture through superior T11. No retropulsion of posterior fragments or canal stenosis. 2. Right 11th rib fracture. Venkat Hong MD Pelvis X-Ray 07/19/17304 Signed Impressions: Service Date/Time: Wednesday, July 19, 2017 02:56 - CONCLUSION: Limited study without fracture. Venkat Hong MD Maxillofacial CT 07/19/17304 Signed Impressions: Service Date/Time: Wednesday, July 19, 2017 03:24 - CONCLUSION: 1. Fluid in the sphenoid sinuses greater on the right. 2. No facial fracture seen. Venkat Hong MD Lumbar Spine CT 07/19/17304 Signed Impressions: Service Date/Time: Wednesday, July 19, 2017 03:29 - CONCLUSION: 1. No lumbar vertebral fracture. 2. Disc bulges at L3-4 and L4-5 levels. 3. Right 11th rib fracture. Venkat Hong MD Head CT 07/19/17304 Signed Impressions: Service Date/Time: Wednesday, July 19, 2017 03:21 - CONCLUSION: 1. Cerebral atrophy and chronic ischemic small vessel vasculopathy. 2. Fluid in the sphenoid sinuses greater right. Venkat Hong MD Chest X-Ray 07/19/17304 Signed Impressions: Service Date/Time: Wednesday, July 19, 2017 02:56 - CONCLUSION: Left basilar atelectasis. Venkat Hong MD Chest CT 07/19/17304 Signed Impressions: Service Date/Time: Wednesday, July 19, 2017 03:29 - CONCLUSION: 1. T11 vertebral fracture. 2. Fracture of the right seventh rib. 3. 8mm nodule right lung. 4. Minimal ground glass densities in the right lower lobe. Venkat Hong MD Cervical Spine CT 07/19/175 Signed Impressions: Service Date/Time: Wednesday, July 19, 2017 03:23 - CONCLUSION: 1. No fracture or subluxation. 2. Protrusions at C3-4 and C6-7. Venkat Hong MD Abdomen/Pelvis CT 07/19/17 0305 Signed Impressions: Service Date/Time: Wednesday, July 19, 2017 03:29 - CONCLUSION: 1. Fractures of T11. No retropulsion of posterior fragments. 2. Right 11th rib fracture. 3. No abdominal visceral injury. Venkat Hong MD Radius/Ulna X-Ray 07/19/17 0000 Signed Impressions: Service Date/Time: Wednesday, July 19, 2017 02:56 - CONCLUSION: Mildly displaced fracture midshaft of ulna. Venkat Hong MD Radius/Ulna X-Ray 07/19/17 0000 Signed Impressions: Service Date/Time: Wednesday, July 19, 2017 02:56 - CONCLUSION: Fracture proximal/mid shaft of radius with mild displacement. Venkat Hong MD Humerus X-Ray 07/19/17 0000 Signed Impressions: Service Date/Time: Wednesday, July 19, 2017 02:56 - CONCLUSION: No fracture right humerus. Venkat Hong MD Humerus X-Ray 07/19/17 0000 Signed Impressions: Service Date/Time: Wednesday, July 19, 2017 02:56 - CONCLUSION: Fracture mid shaft of the humerus. Venkat Hong MD Objective Remarks Right upper extremity: Clean dry dressings intact with intact distal pulses and good capillary refills. Neurovascular intact distally Left upper extremity: Clean dry dressings intact with intact distal pulses. Good capillary refills. Neurovascularly intact distally Assessment & Plan Assessment and Plan 1) Right radial shaft fracture with significant degloving and open wounds. Status post ORIF POD 5 2) Left forearm irrigation debridement and ORIF ulna shaft, irrigation debridement of left elbow with removal of radial head fragments. POD 5 3) Left periprosthetic midshaft humerus fx s/p ORIF - POD 1 Nonweightbearing bilateral upper extremities Daily dressing changes beginning POD 2 with bacitracin, Adaptic, 4 x 4's and Ayan wrap with ABDs to BUE Sling and swath at all times left upper extremity except for dressing changes patient will need one more procedure for radial head replacement of left elbow. , however, skin is not healthy enough to proceed yet. would anticipate possible next week before ready Ej Leslie Jul 24, 2017 07:03
[2017-07-24 08:00] LABS: ACANTHOCYTES OCC (NORMAL)
[2017-07-24 08:01] LABS: BURR CELLS 1+ (NORMAL); OVALOCYTES 1+ (NORMAL)
--- NOTE | 2017-07-24 08:14 | HHI.PR ---
Neuropsych Emotional Emotional: Intact: Emotional, Anxious/Fearful, Depressed/Sad, Hostile/Resentful , Irritable/Angry/Frustrate, Labile, Constricted/Blunted Behavior Behavior: Intact: Behavior, Coping/Acceptance, Motivation, Frustration Tolerance/[place], Impulsive/Agitated, Suicidal/Homicidal Risk, Moderate: Cooperative w/ Treatment Cognitive Cognitive: Mild: Cognitive, Attention/Concentration, Confused/Orientation, Insight/Awareness, Judgement/Problem-Solving, Memory Psychosocial Psychosocial: Unable to Asses: Psychosocial, Family/Other Adjustment, Realistic Expectation, Self-Esteem/Confidence Progress Notes/Response to Tx Contents of Sessions: Adjustment Time with Patient: 15 minutes Premorbid psychological status Premorbid Cognitive, Emotional and Behavioral Status: Stable. The patient has high school years of education and a solid work history prior to this injury, now retired. The patient has no psychiatric difficulties, as described above. Substance abuse history is unknown. Behavioral Reactions of Patient and Family/Support System: Stable. The patient s family is experiencing ongoing issues of adjustment given the nature of the injury, and this aspect of recovery will require ongoing monitoring. Emotional/Behavioral Status of Patient and Family/Support System: Stable. Pertinent issues, if appropriate to this patients clinical care, are described in detail above. Maximizing acute care outcome It is recommended that the patient be monitored for emergent behavioral impulsivity as the medical condition evolves. This patients neuropathological challenges may limit their rehabilitation potential going forward, and these challenges will require specialized therapeutic skills to maximize outcome. Anticipated Problems Ongoing areas of concern will include behavioral impulsivity, lack of insight and judgment, which is expected to improve with time and treatment. Presently , the patient is awake, alert and following commands. Treatment Plan This clinician will continue to follow with you throughout the course of this patients acute care treatment, and I will be available to meet with the patient s family/support system to facilitate their understanding and the ongoing care of their family member. The goals of neuropsychological intervention shall be both educational and supportive to the family/support system as is deemed clinically appropriate. 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 This patient may likely have some underlying level of cognitive dysfunction that will be exacerbated by accident. Diagnosis: (1) Concussion with brief (less than one hour) loss of consciousness Status: Resolved (2) Mild neurocognitive disorder Status: Chronic Progress Note Narrative Ongoing follow-up of patient seen during daily trauma rounds. This is day 5 post injury. The patient is improving, alert and oriented, but not generally compliant with physical and occupational therapies. No other neurobehavioral issues. I will continue to follow. Martin Xavier PhD Jul 24, 2017 8:14 am
--- NOTE | 2017-07-24 08:14 | HHI.PR ---
Neuropsych Emotional Emotional: Intact: Emotional, Anxious/Fearful, Depressed/Sad, Hostile/Resentful , Irritable/Angry/Frustrate, Labile, Constricted/Blunted Behavior Behavior: Intact: Behavior, Coping/Acceptance, Motivation, Frustration Tolerance/[place], Impulsive/Agitated, Suicidal/Homicidal Risk, Moderate: Cooperative w/ Treatment Cognitive Cognitive: Mild: Cognitive, Attention/Concentration, Confused/Orientation, Insight/Awareness, Judgement/Problem-Solving, Memory Psychosocial Psychosocial: Unable to Asses: Psychosocial, Family/Other Adjustment, Realistic Expectation, Self-Esteem/Confidence Progress Notes/Response to Tx Contents of Sessions: Adjustment Time with Patient: 15 minutes Premorbid psychological status Premorbid Cognitive, Emotional and Behavioral Status: Stable. The patient has high school years of education and a solid work history prior to this injury, now retired. The patient has no psychiatric difficulties, as described above. Substance abuse history is unknown. Behavioral Reactions of Patient and Family/Support System: Stable. The patient s family is experiencing ongoing issues of adjustment given the nature of the injury, and this aspect of recovery will require ongoing monitoring. Emotional/Behavioral Status of Patient and Family/Support System: Stable. Pertinent issues, if appropriate to this patients clinical care, are described in detail above. Maximizing acute care outcome It is recommended that the patient be monitored for emergent behavioral impulsivity as the medical condition evolves. This patients neuropathological challenges may limit their rehabilitation potential going forward, and these challenges will require specialized therapeutic skills to maximize outcome. Anticipated Problems Ongoing areas of concern will include behavioral impulsivity, lack of insight and judgment, which is expected to improve with time and treatment. Presently , the patient is awake, alert and following commands. Treatment Plan This clinician will continue to follow with you throughout the course of this patients acute care treatment, and I will be available to meet with the patient s family/support system to facilitate their understanding and the ongoing care of their family member. The goals of neuropsychological intervention shall be both educational and supportive to the family/support system as is deemed clinically appropriate. 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 This patient may likely have some underlying level of cognitive dysfunction that will be exacerbated by accident. Diagnosis: (1) Concussion with brief (less than one hour) loss of consciousness Status: Resolved (2) Mild neurocognitive disorder Status: Chronic Progress Note Narrative Ongoing follow-up of patient seen during daily trauma rounds. This is day 5 post injury. The patient is improving, alert and oriented, but not generally compliant with physical and occupational therapies. No other neurobehavioral issues. I will continue to follow. Martin Xavier PhD Jul 24, 2017 8:14 am
--- NOTE | 2017-07-24 08:14 | HHI.PR ---
Neuropsych Emotional Emotional: Intact: Emotional, Anxious/Fearful, Depressed/Sad, Hostile/Resentful , Irritable/Angry/Frustrate, Labile, Constricted/Blunted Behavior Behavior: Intact: Behavior, Coping/Acceptance, Motivation, Frustration Tolerance/[place], Impulsive/Agitated, Suicidal/Homicidal Risk, Moderate: Cooperative w/ Treatment Cognitive Cognitive: Mild: Cognitive, Attention/Concentration, Confused/Orientation, Insight/Awareness, Judgement/Problem-Solving, Memory Psychosocial Psychosocial: Unable to Asses: Psychosocial, Family/Other Adjustment, Realistic Expectation, Self-Esteem/Confidence Progress Notes/Response to Tx Contents of Sessions: Adjustment Time with Patient: 15 minutes Premorbid psychological status Premorbid Cognitive, Emotional and Behavioral Status: Stable. The patient has high school years of education and a solid work history prior to this injury, now retired. The patient has no psychiatric difficulties, as described above. Substance abuse history is unknown. Behavioral Reactions of Patient and Family/Support System: Stable. The patient s family is experiencing ongoing issues of adjustment given the nature of the injury, and this aspect of recovery will require ongoing monitoring. Emotional/Behavioral Status of Patient and Family/Support System: Stable. Pertinent issues, if appropriate to this patients clinical care, are described in detail above. Maximizing acute care outcome It is recommended that the patient be monitored for emergent behavioral impulsivity as the medical condition evolves. This patients neuropathological challenges may limit their rehabilitation potential going forward, and these challenges will require specialized therapeutic skills to maximize outcome. Anticipated Problems Ongoing areas of concern will include behavioral impulsivity, lack of insight and judgment, which is expected to improve with time and treatment. Presently , the patient is awake, alert and following commands. Treatment Plan This clinician will continue to follow with you throughout the course of this patients acute care treatment, and I will be available to meet with the patient s family/support system to facilitate their understanding and the ongoing care of their family member. The goals of neuropsychological intervention shall be both educational and supportive to the family/support system as is deemed clinically appropriate. 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 This patient may likely have some underlying level of cognitive dysfunction that will be exacerbated by accident. Diagnosis: (1) Concussion with brief (less than one hour) loss of consciousness Status: Resolved (2) Mild neurocognitive disorder Status: Chronic Progress Note Narrative Ongoing follow-up of patient seen during daily trauma rounds. This is day 5 post injury. The patient is improving, alert and oriented, but not generally compliant with physical and occupational therapies. No other neurobehavioral issues. I will continue to follow. Martin Xavier PhD Jul 24, 2017 8:14 am
[2017-07-24] MEDS: CHOLECALCIFEROL (VIT D3) 1000 UNIT TAB PO SCH (08:25)
[2017-07-24] MEDS: CALCIUM/VITAMIN D 250 MG/125 U TAB PO SCH ×3 (08:25→17:31)
[2017-07-24] MEDS: METOPROLOL TARTRATE 50 MG TAB PO SCH ×2 (08:25→21:26)
[2017-07-24] MEDS: PRAVASTATIN SOD 40 MG TAB PO SCH (08:25)
[2017-07-24] MEDS: HEPARIN SODIUM - SQ 10,000 UNITS/ML VIAL SQ SCH ×3 (08:25→21:26)
[2017-07-24] MEDS: DOCUSATE SODIUM 100 MG CAP PO SCH ×2 (08:25→21:25)
[2017-07-24] MEDS: LIDOCAINE HCL 5% PATCH T-DERMAL SCH (08:26)
[2017-07-24] MEDS: SODIUM CHLORIDE 0.9% FLUSH 5 ML FLUSH IVF SCH ×2 (09:00→22:39)
[2017-07-24] MEDS ORDERED: amLODIPine BESYLATE 5 MG TAB PO SCH (09:00)
[2017-07-24] MEDS: LACTULOSE SYRUP 20 GM/30 ML CUP PO SCH (09:00)
[2017-07-24] MEDS: FAMOTIDINE 20 MG TAB PO SCH ×2 (09:01→21:26)
[2017-07-24] MEDS: INSULIN ASPART SUPPLEMENTAL SCALE SQ SCH ×4 (09:27→22:40)
[2017-07-24] MEDS ORDERED: LACTULOSE SYRUP 20 GM/30 ML CUP PO ONE (09:45)
[2017-07-24] MEDS: HYDROCHLOROTHIAZIDE 12.5 MG CAP PO SCH (10:04)
[2017-07-24 10:38] LABS: HEPATITIS C AB IgG NEGATIVE (NEGATIVE)
[2017-07-24] MEDS: fentaNYL 50 MCG/HR PATCH T-DERMAL SCH (11:00)
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
[2017-07-24] MEDS: DILTIAZEM HCL 30 MG TAB PO SCH ×3 (13:33→21:26)
[2017-07-24] MEDS: LORATADINE 10 MG TAB PO SCH (17:00)
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
[2017-07-24] MEDS: SODIUM CHLOR 0.45% 1000 ML INJ 1,000 ML IV SCH (18:34)
[2017-07-24] MEDS: REMOVE OLD LIDOCAINE PATCH T-DERMAL SCH (21:00)
[2017-07-24] MEDS: TAMSULOSIN HCL 0.4 MG CAP PO SCH (21:25)
[2017-07-24] MEDS: INSULIN DETEMIR 100 UNITS/ML VIAL SQ SCH (22:39)
[2017-07-25] VITALS (15 sets, daily range): BP systolic 118–178; BP diastolic 63–102; PULSE 92–140; RESP 16–34; TEMP 97.5–98.7; O2SAT 88–100
[2017-07-25] MEDS: ceFAZolin 2 GM PREMIX 50 ML IV SCH ×3 (00:36→15:48)
[2017-07-25] MEDS: CHLORHEXIDINE GLUCONATE 2 % 1 PACK (2 CLOTHS) TOP SCH ×2 (00:36→20:12)
[2017-07-25] MEDS: RESP: ALBUTEROL 2.5 MG/IPRATROPIUM 0.5 MG NEB (SCH) NEB ×4 (03:23→22:03)
[2017-07-25 04:33] LABS: AUTOMATED NEUTROPHIL # 11.8 TH/MM3 (1.8-7.7); BASOPHIL % 0.1 % (0.0-2.0); EOSINOPHIL # 0.1 TH/MM3 (0-0.4); HEMATOCRIT 29.4 % (39.0-51.0); HEMOGLOBIN 9.6 GM/DL (13.0-17.0); LYMPHOCYTE # 0.4 TH/MM3 (1.0-4.8); MEAN CELL VOLUME 92.2 FL (80.0-100.0); MEAN CORPUSCULAR HEMOGLOBIN 30.3 PG (27.0-34.0); MEAN CORPUSCULAR HGB CONC 32.8 % (32.0-36.0); MEAN PLATELET VOLUME 9.9 FL (7.0-11.0); MONO % 8.6 % (0.0-8.0); MONOCYTE # 1.2 TH/MM3 (0-0.9); NEUT % 87.3 % (16.0-70.0); PLATELET COUNT 124 TH/MM3 (150-450); RED BLOOD COUNT 3.19 MIL/MM3 (4.50-5.90); WHITE BLOOD COUNT 13.6 TH/MM3 (4.0-11.0)
[2017-07-25 04:59] LABS: ALBUMIN 1.9 GM/DL (3.4-5.0); AST (GOT) 17 U/L (15-37); BICARBONATE 25.5 MEQ/L (21.0-32.0); BLOOD UREA NITROGEN 58 MG/DL (7-18); CALCIUM 8.4 MG/DL (8.5-10.1); CHLORIDE 113 MEQ/L (98-107); CREATININE 2.15 MG/DL (0.60-1.30); GLOMERULAR FILTRATION RATE 30 ML/MIN (>89); GLUCOSE,RANDOM 281 MG/DL (74-106); SODIUM (NA) 148 MEQ/L (136-145)
[2017-07-25 05:02] LABS: ALKALINE PHOSPHATASE 103 U/L (45-117); ALT (GPT) 6 U/L (12-78); TOTAL BILIRUBIN ADULT 0.5 MG/DL (0.2-1.0); TOTAL PROTEIN 5.5 GM/DL (6.4-8.2)
[2017-07-25] MEDS: METHOCARBAMOL 500 MG TAB PO SCH ×3 (05:42→20:57)
[2017-07-25] MEDS: SODIUM CHLOR 0.45% 1000 ML INJ 1,000 ML IV SCH ×2 (07:11→17:54)
[2017-07-25] MEDS: DILTIAZEM INJ 125 MG in SODIUM CHLORIDE 0.9% INJ 100 ML IV PRN ×2 (07:11→22:57)
--- NOTE | 2017-07-25 07:58 | HHI.PR ---
Neuropsych Emotional Emotional: Intact: Emotional, Anxious/Fearful, Depressed/Sad, Hostile/Resentful , Irritable/Angry/Frustrate, Labile, Constricted/Blunted Behavior Behavior: Intact: Behavior, Coping/Acceptance, Cooperative w/ Treatment, Motivation, Frustration Tolerance/[place], Suicidal/Homicidal Risk, Moderate: Impulsive/Agitated Cognitive Cognitive: Mild: Cognitive, Judgement/Problem-Solving, Memory, Moderate: Attention/Concentration, Confused/Orientation, Insight/Awareness Psychosocial Psychosocial: Intact: Psychosocial, Family/Other Adjustment, Realistic Expectation, Unable to Asses: Self-Esteem/Confidence Progress Notes/Response to Tx Contents of Sessions: Adjustment Time with Patient: 30 minutes Premorbid psychological status Premorbid Cognitive, Emotional and Behavioral Status: Stable. The patient has high school years of education and a solid work history prior to this injury, now retired. The patient has no psychiatric difficulties, as described above. Substance abuse history is unknown. Behavioral Reactions of Patient and Family/Support System: Stable. The patient s family is experiencing ongoing issues of adjustment given the nature of the injury, and this aspect of recovery will require ongoing monitoring. Emotional/Behavioral Status of Patient and Family/Support System: Stable. Pertinent issues, if appropriate to this patients clinical care, are described in detail above. Maximizing acute care outcome It is recommended that the patient be monitored for emergent behavioral impulsivity as the medical condition evolves. This patients neuropathological challenges may limit their rehabilitation potential going forward, and these challenges will require specialized therapeutic skills to maximize outcome. Anticipated Problems Ongoing areas of concern will include behavioral impulsivity, lack of insight and judgment, which is expected to improve with time and treatment. Presently , the patient is awake, alert and following commands. Treatment Plan This clinician will continue to follow with you throughout the course of this patients acute care treatment, and I will be available to meet with the patient s family/support system to facilitate their understanding and the ongoing care of their family member. The goals of neuropsychological intervention shall be both educational and supportive to the family/support system as is deemed clinically appropriate. 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 This patient may likely have some underlying level of cognitive dysfunction that will be exacerbated by accident. Diagnosis: (1) Concussion with brief (less than one hour) loss of consciousness Status: Resolved (2) Mild neurocognitive disorder Status: Chronic Progress Note Narrative Ongoing follow-up of patient seen during daily trauma rounds. This is day 6 post injury. The patient underwent left humerus repair yesterday with subsequent development of a-fib. From a neurobehavioral standpoint, the patient has exhibited a decline, consistent with delirium, characterized by hyperarousal, confusion and restlessness. Such deficits are in addition to any residual neurocognitive issues related to his underlying cerebral atrophy and SVID. He does have renal dysfunction and trending white count. Options for neurobehavioral management are limited, and trauma team consensus is to start Valproic Acid 250 BID and monitor. I will continue to follow. Martin Xavier PhD Jul 25, 2017 7:58 am
[2017-07-25] MEDS: BISACODYL 10 MG SUPP RECTAL ONE ×2 (08:00→08:11)
[2017-07-25] MEDS ORDERED: BISACODYL EC 5 MG TABEC PO ONE (08:00)
[2017-07-25] MEDS: INSULIN ASPART SUPPLEMENTAL SCALE SQ SCH ×4 (08:00→21:00)
[2017-07-25] MEDS: SODIUM CHLORIDE 0.9% FLUSH 5 ML FLUSH IVF SCH ×2 (08:11→20:58)
[2017-07-25] MEDS: DILTIAZEM HCL 30 MG TAB PO SCH ×4 (08:11→20:57)
[2017-07-25] MEDS: CHOLECALCIFEROL (VIT D3) 1000 UNIT TAB PO SCH (08:12)
[2017-07-25] MEDS: LACTULOSE SYRUP 20 GM/30 ML CUP PO SCH (08:12)
[2017-07-25] MEDS: PRAVASTATIN SOD 40 MG TAB PO SCH (08:12)
[2017-07-25] MEDS: HYDROCHLOROTHIAZIDE 12.5 MG CAP PO SCH (08:12)
[2017-07-25] MEDS: METOPROLOL TARTRATE 50 MG TAB PO SCH ×2 (08:12→20:56)
[2017-07-25] MEDS: FAMOTIDINE 20 MG TAB PO SCH ×2 (08:12→20:57)
[2017-07-25] MEDS: CALCIUM/VITAMIN D 250 MG/125 U TAB PO SCH ×3 (08:12→17:05)
[2017-07-25] MEDS: DOCUSATE SODIUM 100 MG CAP PO SCH ×2 (08:12→20:58)
[2017-07-25] MEDS: LIDOCAINE HCL 5% PATCH T-DERMAL SCH (08:13)
[2017-07-25] MEDS: HEPARIN SODIUM - SQ 10,000 UNITS/ML VIAL SQ SCH ×2 (08:13→20:59)
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
--- NOTE | 2017-07-25 09:03 | PD.ORT.PN ---
Subjective Subjective Remarks Intubated and stable Objective Vitals Vital Signs Date Time Temp Pulse Resp B/P (MAP) Pulse Ox O2 Delivery O2 Flow Rate FiO2 07/25/17 08:17 95 Nasal Cannula 4.00 07/25/17 07:11 106 155/73 07/25/17 07:00 99 Nasal Cannula 4.00 100 07/25/17 06:00 106 07/25/17 04:00 102 07/25/17 04:00 97.8 102 22 163/70 (101) 98 07/25/17 03:24 100 Nasal Cannula 4.00 07/25/17 02:00 110 07/25/17 00:00 96 07/25/17 00:00 98.4 96 20 162/71 (101) 88 07/24/17 23:44 94 Nasal Cannula 4.00 07/24/17 22:00 108 07/24/17 20:13 100 Nasal Cannula 4.00 07/24/17 20:08 99 Nasal Cannula 4.00 07/24/17 20:00 98.9 102 29 165/72 (103) 98 07/24/17 20:00 102 07/24/17 19:00 98 Nasal Cannula 4.00 07/24/17 18:00 100 07/24/17 16:28 92 127/61 07/24/17 16:00 102 07/24/17 16:00 97.4 94 17 146/68 (94) 94 07/24/17 15:00 96 07/24/17 15:00 96 07/24/17 14:00 104 07/24/17 12:00 103 07/24/17 12:00 97.5 100 15 150/70 (96) 93 07/24/17 11:01 98 Nasal Cannula 4.00 07/24/17 10:00 98 I/O 07/24/17 07/24/17 07/24/17 07/25/17 07/25/17 07/25/17 07:00 15:00 23:00 07:00 15:00 23:00 Intake Total 50 ml 175 ml 1452 ml 1729 ml 50 ml Output Total 800 ml 1300 ml 1525 ml Balance -750 ml 175 ml 152 ml 204 ml 50 ml Intake Oral 420 ml 720 ml IV Total 50 ml 175 ml 1032 ml 1009 ml 50 ml Output Urine Total 800 ml 1300 ml 1525 ml Stool Total 0 ml Result Diagram: 07/25/1739907/25/17399 Imaging Last 24 hours Impressions Thoracic Spine CT 07/19/17304 Signed Impressions: Service Date/Time: Wednesday, July 19, 2017 03:29 - CONCLUSION: 1. Fracture through superior T11. No retropulsion of posterior fragments or canal stenosis. 2. Right 11th rib fracture. Venkat Hong MD Pelvis X-Ray 07/19/17304 Signed Impressions: Service Date/Time: Wednesday, July 19, 2017 02:56 - CONCLUSION: Limited study without fracture. Venkat Hong MD Maxillofacial CT 07/19/17304 Signed Impressions: Service Date/Time: Wednesday, July 19, 2017 03:24 - CONCLUSION: 1. Fluid in the sphenoid sinuses greater on the right. 2. No facial fracture seen. Venkat Hong MD Lumbar Spine CT 07/19/17304 Signed Impressions: Service Date/Time: Wednesday, July 19, 2017 03:29 - CONCLUSION: 1. No lumbar vertebral fracture. 2. Disc bulges at L3-4 and L4-5 levels. 3. Right 11th rib fracture. Venkat Hong MD Head CT 07/19/17304 Signed Impressions: Service Date/Time: Wednesday, July 19, 2017 03:21 - CONCLUSION: 1. Cerebral atrophy and chronic ischemic small vessel vasculopathy. 2. Fluid in the sphenoid sinuses greater right. Venkat Hong MD Chest X-Ray 07/19/17304 Signed Impressions: Service Date/Time: Wednesday, July 19, 2017 02:56 - CONCLUSION: Left basilar atelectasis. Venkat Hong MD Chest CT 07/19/17304 Signed Impressions: Service Date/Time: Wednesday, July 19, 2017 03:29 - CONCLUSION: 1. T11 vertebral fracture. 2. Fracture of the right seventh rib. 3. 8mm nodule right lung. 4. Minimal ground glass densities in the right lower lobe. Venkat Hong MD Cervical Spine CT 07/19/17304 Signed Impressions: Service Date/Time: Wednesday, July 19, 2017 03:23 - CONCLUSION: 1. No fracture or subluxation. 2. Protrusions at C3-4 and C6-7. Venkat Hong MD Abdomen/Pelvis CT 07/19/17 0305 Signed Impressions: Service Date/Time: Wednesday, July 19, 2017 03:29 - CONCLUSION: 1. Fractures of T11. No retropulsion of posterior fragments. 2. Right 11th rib fracture. 3. No abdominal visceral injury. Venkat Hong MD Radius/Ulna X-Ray 07/19/17 0000 Signed Impressions: Service Date/Time: Wednesday, July 19, 2017 02:56 - CONCLUSION: Mildly displaced fracture midshaft of ulna. Venkat Hong MD Radius/Ulna X-Ray 07/19/17 0000 Signed Impressions: Service Date/Time: Wednesday, July 19, 2017 02:56 - CONCLUSION: Fracture proximal/mid shaft of radius with mild displacement. Venkat Hong MD Humerus X-Ray 07/19/17 0000 Signed Impressions: Service Date/Time: Wednesday, July 19, 2017 02:56 - CONCLUSION: No fracture right humerus. Venkat Hong MD Humerus X-Ray 07/19/17 0000 Signed Impressions: Service Date/Time: Wednesday, July 19, 2017 02:56 - CONCLUSION: Fracture mid shaft of the humerus. Venkat Hong MD Objective Remarks Right upper extremity: Clean dry dressings intact with intact distal pulses and good capillary refills. Neurovascular intact distally Left upper extremity: Clean dry dressings intact with intact distal pulses. Good capillary refills. Neurovascularly intact distally Assessment & Plan Assessment and Plan 1) Right radial shaft fracture with significant degloving and open wounds. Status post ORIF POD 6 2) Left forearm irrigation debridement and ORIF ulna shaft, irrigation debridement of left elbow with removal of radial head fragments. POD 6 3) Left periprosthetic midshaft humerus fx s/p ORIF - POD 2 Nonweightbearing bilateral upper extremities Daily dressing changes bilateral upper extremities beginning POD 2 with bacitracin, Adaptic, 4 x 4's and Ayan wrap with ABDs to BUE Sling and swath at all times left upper extremity except for dressing changes patient will need one more procedure for radial head replacement of left elbow. , however, skin is not healthy enough to proceed yet. would anticipate possible next week before ready. Possible radial head replacement could be done after discharge up [facility] if skin is not ready for surgery Artemio Story Jr. Jul 25, 2017 09:03
[2017-07-25] MEDS: VALPROIC ACID 250 MG CAP PO SCH ×2 (11:16→20:58)
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
[2017-07-25] MEDS: LORATADINE 10 MG TAB PO SCH (15:48)
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
[2017-07-25] MEDS: ACETAMINOPHEN/HYDROcodone 325 MG/10 MG TAB PO PRN (18:33)
[2017-07-25] MEDS: TAMSULOSIN HCL 0.4 MG CAP PO SCH (20:56)
[2017-07-25] MEDS: INSULIN DETEMIR 100 UNITS/ML VIAL SQ SCH (21:00)
[2017-07-25] MEDS: REMOVE OLD LIDOCAINE PATCH T-DERMAL SCH (21:00)
[2017-07-26] VITALS (14 sets, daily range): BP systolic 116–162; BP diastolic 56–89; PULSE 79–106; RESP 20–30; TEMP 97.7–99.3; O2SAT 96–99
[2017-07-26] MEDS: RESP: ALBUTEROL 2.5 MG/IPRATROPIUM 0.5 MG NEB (SCH) NEB ×4 (03:33→20:58)
[2017-07-26 04:32] LABS: AUTOMATED NEUTROPHIL # 9.7 TH/MM3 (1.8-7.7); BASOPHIL % 0.4 % (0.0-2.0); EOSINOPHIL # 0.3 TH/MM3 (0-0.4); EOSINOPHIL % 2.4 % (0.0-4.0); HEMOGLOBIN 8.8 GM/DL (13.0-17.0); LYMPHOCYTE # 0.6 TH/MM3 (1.0-4.8); MEAN CELL VOLUME 91.6 FL (80.0-100.0); MEAN CORPUSCULAR HGB CONC 32.8 % (32.0-36.0); MEAN PLATELET VOLUME 9.3 FL (7.0-11.0); MONO % 7.3 % (0.0-8.0); MONOCYTE # 0.8 TH/MM3 (0-0.9); NEUT % 84.9 % (16.0-70.0); PLATELET COUNT 138 TH/MM3 (150-450); RED BLOOD COUNT 2.95 MIL/MM3 (4.50-5.90); RED CELL DISTRIBUTION WIDTH 15.2 % (11.6-17.2); WHITE BLOOD COUNT 11.4 TH/MM3 (4.0-11.0)
[2017-07-26 04:40] LABS: ALBUMIN 1.9 GM/DL (3.4-5.0); ALKALINE PHOSPHATASE 101 U/L (45-117); ALT (GPT) LESS THAN 6 U/L (12-78); AST (GOT) 18 U/L (15-37); BICARBONATE 25.3 MEQ/L (21.0-32.0); BLOOD UREA NITROGEN 48 MG/DL (7-18); CALCIUM 8.7 MG/DL (8.5-10.1); CHLORIDE 113 MEQ/L (98-107); CREATININE 1.98 MG/DL (0.60-1.30); GLOMERULAR FILTRATION RATE 33 ML/MIN (>89); GLUCOSE,RANDOM 177 MG/DL (74-106); SODIUM (NA) 148 MEQ/L (136-145); TOTAL BILIRUBIN ADULT 0.7 MG/DL (0.2-1.0)
[2017-07-26] MEDS: METHOCARBAMOL 500 MG TAB PO SCH ×3 (05:17→20:49)
[2017-07-26 07:20] LABS: BANDS 3 % (0-6); LYMPHOCYTES 4 % (9-44); MONOCYTES 1 % (0-8); MYELOCYTES 1 % (0-0); NEUTROPHIL # MANUAL DIFF 10.5 TH/MM3 (1.8-7.7); POLYS (SEG NEUTROPHILS) 88 % (16-70)
--- NOTE | 2017-07-26 07:21 | PD.ORT.PN ---
Subjective Subjective Remarks POD 7 s/p ORIF left ulna and right radial shaft s/p left radial head fx POD 3 s/p ORIF left periprosthetic humerus fx doing well. pain controlled. nurse reports that patient has become confused. Objective Vitals Vital Signs Date Time Temp Pulse Resp B/P (MAP) Pulse Ox O2 Delivery O2 Flow Rate FiO2 07/26/17 06:00 94 07/26/17 04:00 106 07/26/17 04:00 99.1 106 30 140/76 (97) 96 07/26/17 02:00 88 07/26/17 00:00 97.7 87 22 116/56 (76) 96 07/26/17 00:00 79 07/25/17 22:57 91 114/58 07/25/17 22:05 97 Nasal Cannula 4.00 07/25/17 22:00 92 07/25/17 20:00 140 07/25/17 20:00 98.5 140 34 125/63 (83) 93 07/25/17 19:00 99 Nasal Cannula 4.00 100 Humidified 07/25/17 18:00 117 07/25/17 16:00 98.7 103 16 141/67 (91) 99 07/25/17 16:00 103 07/25/17 14:00 98 07/25/17 12:00 102 07/25/17 12:00 97.7 102 21 135/73 (93) 97 07/25/17 10:00 96 07/25/17 08:17 95 Nasal Cannula 4.00 07/25/17 08:00 136 07/25/17 08:00 97.5 113 21 178/102 (127) 96 I/O 07/25/17 07/25/17 07/25/17 07/26/17 07/26/17 07/26/17 07:00 15:00 23:00 07:00 15:00 23:00 Intake Total 1729 ml 50 ml 1440.5 ml Output Total 1525 ml 1225 ml 1000 ml Balance 204 ml 50 ml 215.5 ml -1000 ml Intake Oral 720 ml 300 ml IV Total 1009 ml 50 ml 1140.5 ml Output Urine Total 1525 ml 1225 ml 1000 ml Stool Total 0 ml # Bowel Movements 0 0 Result Diagram: 07/26/17 04107/26/17 041 Imaging Last 24 hours Impressions Thoracic Spine CT 07/19/17304 Signed Impressions: Service Date/Time: Wednesday, July 19, 2017 03:29 - CONCLUSION: 1. Fracture through superior T11. No retropulsion of posterior fragments or canal stenosis. 2. Right 11th rib fracture. Venkat Hong MD Pelvis X-Ray 07/19/17304 Signed Impressions: Service Date/Time: Wednesday, July 19, 2017 02:56 - CONCLUSION: Limited study without fracture. Venkat Hong MD Maxillofacial CT 07/19/17304 Signed Impressions: Service Date/Time: Wednesday, July 19, 2017 03:24 - CONCLUSION: 1. Fluid in the sphenoid sinuses greater on the right. 2. No facial fracture seen. Venkat Hong MD Lumbar Spine CT 07/19/17304 Signed Impressions: Service Date/Time: Wednesday, July 19, 2017 03:29 - CONCLUSION: 1. No lumbar vertebral fracture. 2. Disc bulges at L3-4 and L4-5 levels. 3. Right 11th rib fracture. Venkat Hong MD Head CT 07/19/17304 Signed Impressions: Service Date/Time: Wednesday, July 19, 2017 03:21 - CONCLUSION: 1. Cerebral atrophy and chronic ischemic small vessel vasculopathy. 2. Fluid in the sphenoid sinuses greater right. Venkat Hong MD Chest X-Ray 07/19/17304 Signed Impressions: Service Date/Time: Wednesday, July 19, 2017 02:56 - CONCLUSION: Left basilar atelectasis. Venkat Hong MD Chest CT 07/19/17304 Signed Impressions: Service Date/Time: Wednesday, July 19, 2017 03:29 - CONCLUSION: 1. T11 vertebral fracture. 2. Fracture of the right seventh rib. 3. 8mm nodule right lung. 4. Minimal ground glass densities in the right lower lobe. Venkat Hong MD Cervical Spine CT 07/19/17304 Signed Impressions: Service Date/Time: Wednesday, July 19, 2017 03:23 - CONCLUSION: 1. No fracture or subluxation. 2. Protrusions at C3-4 and C6-7. Venkat Hong MD Abdomen/Pelvis CT 07/19/17304 Signed Impressions: Service Date/Time: Wednesday, July 19, 2017 03:29 - CONCLUSION: 1. Fractures of T11. No retropulsion of posterior fragments. 2. Right 11th rib fracture. 3. No abdominal visceral injury. Venkat Hong MD Radius/Ulna X-Ray 07/19/17 0000 Signed Impressions: Service Date/Time: Wednesday, July 19, 2017 02:56 - CONCLUSION: Mildly displaced fracture midshaft of ulna. Venkat Hong MD Radius/Ulna X-Ray 07/19/17 0000 Signed Impressions: Service Date/Time: Wednesday, July 19, 2017 02:56 - CONCLUSION: Fracture proximal/mid shaft of radius with mild displacement. Venkat Hong MD Humerus X-Ray 07/19/17 0000 Signed Impressions: Service Date/Time: Wednesday, July 19, 2017 02:56 - CONCLUSION: No fracture right humerus. Venkat Hong MD Humerus X-Ray 07/19/17 0000 Signed Impressions: Service Date/Time: Wednesday, July 19, 2017 02:56 - CONCLUSION: Fracture mid shaft of the humerus. Venkat Hong MD Objective Remarks Right upper extremity: Clean dry dressings intact with intact distal pulses and good capillary refills. Neurovascular intact distally Left upper extremity: Clean dry dressings intact with intact distal pulses. Good capillary refills. Neurovascularly intact distally Assessment & Plan Assessment and Plan 1) Right radial shaft fracture with significant degloving and open wounds. Status post ORIF POD 7 2) Left forearm irrigation debridement and ORIF ulna shaft, irrigation debridement of left elbow with removal of radial head fragments. POD 7 3) Left periprosthetic midshaft humerus fx s/p ORIF - POD 3 Nonweightbearing bilateral upper extremities Daily dressing changes bilateral upper extremities with bacitracin, Adaptic, 4 x 4's and Ayan wrap with ABDs to BUE Sling and swath at all times left upper extremity except for dressing changes patient will need one more procedure for radial head replacement of left elbow. , however, skin is not healthy enough to proceed yet. would anticipate possible next week before ready. Possible radial head replacement could be done after discharge back in [place] if skin is not ready for surgery Ej Leslie Jul 26, 2017 07:20
[2017-07-26 07:24] LABS: KERATOCYTES OCC (NORMAL); OVALOCYTES 1+ (NORMAL)
[2017-07-26] MEDS: SODIUM CHLOR 0.45% 1000 ML INJ 1,000 ML IV SCH ×3 (07:46→21:13)
[2017-07-26] MEDS: SODIUM CHLORIDE 0.9% FLUSH 5 ML FLUSH IVF SCH ×2 (07:58→20:50)
[2017-07-26] MEDS: DOCUSATE SODIUM 100 MG CAP PO SCH ×2 (07:59→20:50)
[2017-07-26] MEDS: DILTIAZEM HCL 30 MG TAB PO SCH (07:59)
[2017-07-26] MEDS: LIDOCAINE HCL 5% PATCH T-DERMAL SCH (07:59)
[2017-07-26] MEDS: FAMOTIDINE 20 MG TAB PO SCH ×2 (07:59→20:49)
[2017-07-26] MEDS: METOPROLOL TARTRATE 50 MG TAB PO SCH ×2 (07:59→20:49)
[2017-07-26] MEDS: CALCIUM/VITAMIN D 250 MG/125 U TAB PO SCH ×3 (07:59→17:24)
[2017-07-26] MEDS: LACTULOSE SYRUP 20 GM/30 ML CUP PO SCH (07:59)
[2017-07-26] MEDS: VALPROIC ACID 250 MG CAP PO SCH ×2 (07:59→20:47)
[2017-07-26] MEDS: INSULIN ASPART SUPPLEMENTAL SCALE SQ SCH ×4 (08:00→20:47)
[2017-07-26] MEDS: PRAVASTATIN SOD 40 MG TAB PO SCH (08:00)
[2017-07-26] MEDS: HYDROCHLOROTHIAZIDE 12.5 MG CAP PO SCH (08:00)
[2017-07-26] MEDS: PILL SPLITTER OTHER PRN (08:01)
[2017-07-26] MEDS: HEPARIN SODIUM - SQ 10,000 UNITS/ML VIAL SQ SCH ×2 (08:01→20:49)
[2017-07-26] MEDS: CHOLECALCIFEROL (VIT D3) 1000 UNIT TAB PO SCH (08:01)
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
[2017-07-26] MEDS ORDERED: POTASSIUM CHLORIDE 20 MEQ CONTROLLED RELEASE TAB PO ONE (08:30)
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
[2017-07-26] MEDS ORDERED: FUROSEMIDE 20 MG/2 ML VIAL IV PUSH ONE (09:30)
[2017-07-26] MEDS: DILTIAZEM HCL 60 MG TAB PO SCH ×2 (13:35→20:49)
[2017-07-26] MEDS: ACETAMINOPHEN/HYDROcodone 325 MG/10 MG TAB PO PRN (13:39)
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
[2017-07-26] MEDS: LORATADINE 10 MG TAB PO SCH (15:45)
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
[2017-07-26] MEDS: ACETAMINOPHEN/HYDROcodone 325 MG/10 MG TAB PO SCH (19:11)
[2017-07-26] MEDS: QUEtiapine FUMARATE 25 MG TAB PO SCH (20:49)
[2017-07-26] MEDS: INSULIN DETEMIR 100 UNITS/ML VIAL SQ SCH (20:49)
[2017-07-26] MEDS: TAMSULOSIN HCL 0.4 MG CAP PO SCH (20:50)
[2017-07-26] MEDS: REMOVE OLD LIDOCAINE PATCH T-DERMAL SCH (20:50)
[2017-07-27] VITALS (9 sets, daily range): BP systolic 109–134; BP diastolic 54–76; PULSE 74–107; RESP 15–20; TEMP 97.7–99.4; O2SAT 93–97
[2017-07-27] MEDS: ACETAMINOPHEN/HYDROcodone 325 MG/10 MG TAB PO SCH ×4 (00:27→17:52)
[2017-07-27 03:27] LABS: AUTOMATED NEUTROPHIL # 9.9 TH/MM3 (1.8-7.7); BASOPHIL % 0.3 % (0.0-2.0); EOSINOPHIL # 0.3 TH/MM3 (0-0.4); EOSINOPHIL % 2.5 % (0.0-4.0); HEMATOCRIT 26.7 % (39.0-51.0); HEMOGLOBIN 8.6 GM/DL (13.0-17.0); LYMPH % 4.5 % (9.0-44.0); LYMPHOCYTE # 0.5 TH/MM3 (1.0-4.8); MEAN CELL VOLUME 92.6 FL (80.0-100.0); MEAN CORPUSCULAR HEMOGLOBIN 29.8 PG (27.0-34.0); MEAN CORPUSCULAR HGB CONC 32.2 % (32.0-36.0); MEAN PLATELET VOLUME 9.5 FL (7.0-11.0); MONO % 5.8 % (0.0-8.0); MONOCYTE # 0.7 TH/MM3 (0-0.9); NEUT % 86.9 % (16.0-70.0); PLATELET COUNT 145 TH/MM3 (150-450); RED BLOOD COUNT 2.89 MIL/MM3 (4.50-5.90); WHITE BLOOD COUNT 11.4 TH/MM3 (4.0-11.0)
[2017-07-27] MEDS: CHLORHEXIDINE GLUCONATE 2 % 1 PACK (2 CLOTHS) TOP SCH (03:34)
[2017-07-27 04:00] LABS: ALBUMIN 1.7 GM/DL (3.4-5.0); AST (GOT) 17 U/L (15-37); BICARBONATE 26.7 MEQ/L (21.0-32.0); BLOOD UREA NITROGEN 47 MG/DL (7-18); CHLORIDE 110 MEQ/L (98-107); CREATININE 2.09 MG/DL (0.60-1.30); GLOMERULAR FILTRATION RATE 31 ML/MIN (>89); GLUCOSE,RANDOM 276 MG/DL (74-106); SODIUM (NA) 145 MEQ/L (136-145)
[2017-07-27 04:04] LABS: ALKALINE PHOSPHATASE 120 U/L (45-117); ALT (GPT) LESS THAN 6 U/L (12-78); TOTAL BILIRUBIN ADULT 0.9 MG/DL (0.2-1.0)
[2017-07-27 04:16] LABS: BANDS 5 % (0-6); LYMPHOCYTES 1 % (9-44); MONOCYTES 5 % (0-8); MYELOCYTES 2 % (0-0); NEUTROPHIL # MANUAL DIFF 10.6 TH/MM3 (1.8-7.7); POLYS (SEG NEUTROPHILS) 86 % (16-70)
[2017-07-27 04:22] LABS: OVALOCYTES 1+ (NORMAL)
[2017-07-27 04:23] LABS: KERATOCYTES OCC (NORMAL)
[2017-07-27] MEDS: HYDROmorphone HCL PF 1 MG/ML VIAL IV PRN (04:38)
[2017-07-27] MEDS: ONDANSETRON HCL 4 MG/2 ML VIAL IV PUSH PRN (04:38)
[2017-07-27] MEDS: METHOCARBAMOL 500 MG TAB PO SCH ×2 (05:05→13:32)
[2017-07-27] MEDS: DILTIAZEM HCL 60 MG TAB PO SCH ×2 (05:05→13:32)
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
--- NOTE | 2017-07-27 05:09 | RADRPT ---
EXAM DATE/TIME: 07/27/2017 05:10 [facility] COMPARISON: No previous studies available for comparison. INDICATIONS : [place] [facility] [place] : None. SURGICAL HISTORY : None. ENCOUNTER: Subsequent ACUITY: 1 week PAIN SCORE: 8/10 LOCATION: Bilateral chest FINDINGS: Diffuse but mid and lower lung predominant air space opacities are seen in both lungs. These have inc reased, especially in the right midlung. A small left pleural effusion is suspected as well. I don't see a pneumothorax. Heart size stable, upper limits of normal. CONCLUSION: Bilateral airspace opacities are modestly worse in the interim. Gaston Jones MD on July 27, 2017 at 5:07 Board Certified Radiologist. This report was verified electronically.
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
--- NOTE | 2017-07-27 07:31 | PD.ORT.PN ---
Subjective Subjective Remarks POD 8 s/p ORIF left ulna and right radial shaft s/p left radial head fx POD 4 s/p ORIF left periprosthetic humerus fx doing well. pain controlled. nurse reports that patient has become confused. Objective Vitals Vital Signs Date Time Temp Pulse Resp B/P (MAP) Pulse Ox O2 Delivery O2 Flow Rate FiO2 07/27/17 06:00 93 07/27/17 04:00 91 07/27/17 04:00 97.7 107 20 128/59 (82) 96 07/27/17 02:00 91 07/27/17 00:00 99.2 83 20 124/56 (78) 95 07/27/17 00:00 84 07/26/17 22:00 98 07/26/17 21:15 96 Nasal Cannula 2.00 07/26/17 20:00 98.9 102 20 146/89 (108) 96 07/26/17 20:00 102 07/26/17 19:00 96 Nasal Cannula 2.00 Humidified 07/26/17 18:00 105 07/26/17 16:00 99.3 103 21 133/60 (84) 97 07/26/17 16:00 103 07/26/17 14:42 20 07/26/17 14:00 96 Nasal Cannula 2.00 Humidified 07/26/17 14:00 99 07/26/17 12:00 98.5 96 23 162/70 (100) 99 07/26/17 12:00 96 07/26/17 10:00 87 07/26/17 09:30 99 Nasal Cannula 3.00 Humidified 07/26/17 08:29 99 Nasal Cannula 4.00 07/26/17 08:00 98.9 104 23 125/64 (84) 99 07/26/17 08:00 106 I/O 07/26/17 07/26/17 07/26/17 07/27/17 07/27/17 07/27/17 07:00 15:00 23:00 07:00 15:00 23:00 Intake Total 1035 ml 80 ml 1192 ml 1186 ml Output Total 1000 ml 1400 ml Balance 35 ml 80 ml -208 ml 1186 ml Intake Oral 250 ml IV Total 1035 ml 80 ml 942 ml 1186 ml Output Urine Total 1000 ml 1400 ml # Voids 4 # Bowel Movements 0 0 Result Diagram: 07/27/1730607/27/17306 Imaging Last 24 hours Impressions [address]acic Spine CT 07/19/17304 Signed Impressions: Service Date/Time: Wednesday, July 19, 2017 03:29 - CONCLUSION: 1. Fracture through superior T11. No retropulsion of posterior fragments or canal stenosis. 2. Right 11th rib fracture. Venkat Hong MD Pelvis X-Ray 07/19/17304 Signed Impressions: Service Date/Time: Wednesday, July 19, 2017 02:56 - CONCLUSION: Limited study without fracture. Venkat Hong MD Maxillofacial CT 07/19/17304 Signed Impressions: Service Date/Time: Wednesday, July 19, 2017 03:24 - CONCLUSION: 1. Fluid in the sphenoid sinuses greater on the right. 2. No facial fracture seen. Venkat Hnog MD Lumbar Spine CT 07/19/17304 Signed Impressions: Service Date/Time: Wednesday, July 19, 2017 03:29 - CONCLUSION: 1. No lumbar vertebral fracture. 2. Disc bulges at L3-4 and L4-5 levels. 3. Right 11th rib fracture. Venkat Hong MD Head CT 07/19/17304 Signed Impressions: Service Date/Time: Wednesday, July 19, 2017 03:21 - CONCLUSION: 1. Cerebral atrophy and chronic ischemic small vessel vasculopathy. 2. Fluid in the sphenoid sinuses greater right. Venkat Hong MD Chest X-Ray 07/19/17304 Signed Impressions: Service Date/Time: Wednesday, July 19, 2017 02:56 - CONCLUSION: Left basilar atelectasis. Venkat Hong MD Chest CT 07/19/17304 Signed Impressions: Service Date/Time: Wednesday, July 19, 2017 03:29 - CONCLUSION: 1. T11 vertebral fracture. 2. Fracture of the right seventh rib. 3. 8mm nodule right lung. 4. Minimal ground glass densities in the right lower lobe. Venkat Hong MD Cervical Spine CT 07/19/17304 Signed Impressions: Service Date/Time: Wednesday, July 19, 2017 03:23 - CONCLUSION: 1. No fracture or subluxation. 2. Protrusions at C3-4 and C6-7. Venkat Hong MD Abdomen/Pelvis CT 07/19/17 0305 Signed Impressions: Service Date/Time: Wednesday, July 19, 2017 03:29 - CONCLUSION: 1. Fractures of T11. No retropulsion of posterior fragments. 2. Right 11th rib fracture. 3. No abdominal visceral injury. Venkat Hong MD Radius/Ulna X-Ray 07/19/17 0000 Signed Impressions: Service Date/Time: Wednesday, July 19, 2017 02:56 - CONCLUSION: Mildly displaced fracture midshaft of ulna. Venkat Hong MD Radius/Ulna X-Ray 07/19/17 0000 Signed Impressions: Service Date/Time: Wednesday, July 19, 2017 02:56 - CONCLUSION: Fracture proximal/mid shaft of radius with mild displacement. Venkat Hong MD Humerus X-Ray 07/19/17 0000 Signed Impressions: Service Date/Time: Wednesday, July 19, 2017 02:56 - CONCLUSION: No fracture right humerus. Venkat Hong MD Humerus X-Ray 07/19/17 0000 Signed Impressions: Service Date/Time: Wednesday, July 19, 2017 02:56 - CONCLUSION: Fracture mid shaft of the humerus. Venkat Hong MD Objective Remarks Right upper extremity: Clean dry dressings intact with intact distal pulses and good capillary refills. Neurovascular intact distally Left upper extremity: Clean dry dressings intact with intact distal pulses. Good capillary refills. Neurovascularly intact distally Assessment & Plan Assessment and Plan 1) Right radial shaft fracture with significant degloving and open wounds. Status post ORIF POD 8 2) Left forearm irrigation debridement and ORIF ulna shaft, irrigation debridement of left elbow with removal of radial head fragments. POD 8 3) Left periprosthetic midshaft humerus fx s/p ORIF - POD 4 Nonweightbearing bilateral upper extremities Daily dressing changes bilateral upper extremities with bacitracin, Adaptic, 4 x 4's and Ayan wrap with ABDs to BUE Sling and swath at all times left upper extremity except for dressing changes patient will need one more procedure for radial head replacement of left elbow. , however, skin is not healthy enough to proceed yet. would anticipate possible next week before ready. Possible radial head replacement could be done after discharge back in [place] if skin is not ready for surgery Ej Leslie Jul 27, 2017 07:31
[2017-07-27] MEDS: MAGNESIUM HYDROXIDE SUSP 30 ML CUP PO SCH ×3 (08:30→09:27)
[2017-07-27] MEDS ORDERED: MAGNESIUM CITRATE SOLN 300 ML BTL PO ONE (08:30)
[2017-07-27] MEDS: DOCUSATE SODIUM 50 MG/SENNA 8.6 MG TAB PO SCH ×2 (09:00→09:27)
[2017-07-27] MEDS: CHOLECALCIFEROL (VIT D3) 1000 UNIT TAB PO SCH ×2 (09:00→09:28)
[2017-07-27] MEDS: HYDROCHLOROTHIAZIDE 12.5 MG CAP PO SCH ×2 (09:00→09:28)
[2017-07-27] MEDS: FAMOTIDINE 20 MG TAB PO SCH ×2 (09:00→09:28)
[2017-07-27] MEDS: HEPARIN SODIUM - SQ 10,000 UNITS/ML VIAL SQ SCH (09:25)
[2017-07-27] MEDS: INSULIN ASPART SUPPLEMENTAL SCALE SQ SCH ×3 (09:26→17:52)
[2017-07-27] MEDS: LIDOCAINE HCL 5% PATCH T-DERMAL SCH (09:26)
[2017-07-27] MEDS: VALPROIC ACID 250 MG CAP PO SCH (09:27)
[2017-07-27] MEDS: LACTULOSE SYRUP 20 GM/30 ML CUP PO SCH (09:27)
[2017-07-27] MEDS: CALCIUM/VITAMIN D 250 MG/125 U TAB PO SCH ×3 (09:28→17:41)
[2017-07-27] MEDS: METOPROLOL TARTRATE 50 MG TAB PO SCH (09:28)
[2017-07-27] MEDS: PRAVASTATIN SOD 40 MG TAB PO SCH (09:28)
[2017-07-27] MEDS: SODIUM CHLORIDE 0.9% FLUSH 5 ML FLUSH IVF SCH (09:28)
[2017-07-27] MEDS: fentaNYL 50 MCG/HR PATCH T-DERMAL SCH (09:29)
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
[2017-07-27] MEDS: LORATADINE 10 MG TAB PO SCH (17:41)
[2017-07-27] MEDS: VALPROIC ACID SYRUP 250 MG/5 ML UDC PO SCH (21:00)
[2017-07-27] MEDS: INSULIN DETEMIR 100 UNITS/ML VIAL SQ SCH (21:00)
[2017-07-28] VITALS (14 sets, daily range): BP systolic 98–139; BP diastolic 55–88; PULSE 74–110; RESP 16–24; TEMP 96.6–98.9; O2SAT 93–98
[2017-07-28] MEDS: SODIUM CHLOR 0.45% 1000 ML INJ 1,000 ML IV SCH ×2 (00:22→09:30)
[2017-07-28] MEDS: SODIUM CHLORIDE 0.9% FLUSH 5 ML FLUSH IVF SCH ×3 (00:23→21:00)
[2017-07-28] MEDS: INSULIN ASPART SUPPLEMENTAL SCALE SQ SCH ×6 (00:23→21:00)
[2017-07-28] MEDS: DOCUSATE SODIUM 50 MG/SENNA 8.6 MG TAB PO SCH ×3 (00:24→22:54)
[2017-07-28] MEDS: TAMSULOSIN HCL 0.4 MG CAP PO SCH ×3 (00:24→22:54)
[2017-07-28] MEDS: METOPROLOL TARTRATE 50 MG TAB PO SCH ×3 (00:25→22:53)
[2017-07-28] MEDS: MAGNESIUM HYDROXIDE SUSP 30 ML CUP PO SCH ×3 (00:25→21:00)
[2017-07-28] MEDS: METHOCARBAMOL 500 MG TAB PO SCH ×4 (00:25→22:54)
[2017-07-28] MEDS: REMOVE OLD LIDOCAINE PATCH T-DERMAL SCH ×2 (00:25→17:55)
[2017-07-28] MEDS: DILTIAZEM HCL 60 MG TAB PO SCH ×4 (00:25→22:53)
[2017-07-28] MEDS: FAMOTIDINE 20 MG TAB PO SCH ×3 (00:25→22:54)
[2017-07-28] MEDS: QUEtiapine FUMARATE 25 MG TAB PO SCH (00:26)
[2017-07-28] MEDS: HEPARIN SODIUM - SQ 10,000 UNITS/ML VIAL SQ SCH ×3 (00:26→22:55)
[2017-07-28] MEDS: ACETAMINOPHEN/HYDROcodone 325 MG/10 MG TAB PO SCH ×2 (00:27→06:31)
[2017-07-28] MEDS: CHLORHEXIDINE GLUCONATE 2 % 1 PACK (2 CLOTHS) TOP SCH (04:00)
[2017-07-28 05:36] LABS: AUTOMATED NEUTROPHIL # 11.6 TH/MM3 (1.8-7.7); BASOPHIL # 0.1 TH/MM3 (0-0.2); BASOPHIL % 0.8 % (0.0-2.0); EOSINOPHIL # 0.3 TH/MM3 (0-0.4); EOSINOPHIL % 2.4 % (0.0-4.0); HEMATOCRIT 27.7 % (39.0-51.0); HEMOGLOBIN 9.2 GM/DL (13.0-17.0); LYMPH % 3.5 % (9.0-44.0); LYMPHOCYTE # 0.5 TH/MM3 (1.0-4.8); MEAN CELL VOLUME 92.3 FL (80.0-100.0); MEAN CORPUSCULAR HEMOGLOBIN 30.5 PG (27.0-34.0); MEAN PLATELET VOLUME 9.6 FL (7.0-11.0); MONO % 5.6 % (0.0-8.0); MONOCYTE # 0.7 TH/MM3 (0-0.9); NEUT % 87.7 % (16.0-70.0); PLATELET COUNT 179 TH/MM3 (150-450); RED BLOOD COUNT 3.01 MIL/MM3 (4.50-5.90); RED CELL DISTRIBUTION WIDTH 15.2 % (11.6-17.2); WHITE BLOOD COUNT 13.2 TH/MM3 (4.0-11.0)
[2017-07-28 06:06] LABS: ALBUMIN 1.6 GM/DL (3.4-5.0); ALT (GPT) 8 U/L (12-78); AST (GOT) 20 U/L (15-37); BICARBONATE 28.6 MEQ/L (21.0-32.0); BLOOD UREA NITROGEN 52 MG/DL (7-18); CALCIUM 8.2 MG/DL (8.5-10.1); CHLORIDE 107 MEQ/L (98-107); CREATININE 2.37 MG/DL (0.60-1.30); GLOMERULAR FILTRATION RATE 27 ML/MIN (>89); GLUCOSE,RANDOM 255 MG/DL (74-106); SODIUM (NA) 144 MEQ/L (136-145)
[2017-07-28 06:09] LABS: ALKALINE PHOSPHATASE 148 U/L (45-117); TOTAL BILIRUBIN ADULT 0.9 MG/DL (0.2-1.0); TOTAL PROTEIN 5.2 GM/DL (6.4-8.2)
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
--- NOTE | 2017-07-28 06:09 | RADRPT ---
EXAM DATE/TIME: 07/28/2017 05:50 [facility] COMPARISON: No previous studies available for comparison. INDICATIONS : [place] [facility] [place] : None. SURGICAL HISTORY : None. ENCOUNTER: Subsequent ACUITY: 1 week PAIN SCORE: 8/10 LOCATION: Bilateral chest FINDINGS: Mild basilar predominant airspace opacities persists. Both sides have improved modestly in the interi m. A small left pleural effusion is not significantly changed. I don't see a pneumothorax radiograph mild cardiomegaly is stable. Right internal jugular central venous catheter are again seen, tip in th e superior vena cava. CONCLUSION: Modestly improved bibasilar consolidation. Gaston Jones MD on July 28, 2017 at 6:07 Board Certified Radiologist. This report was verified electronically.
[2017-07-28] MEDS ORDERED: SOD PHOSPHATE/SOD BIPHOSPHATE (ADULT) ENEMA 133ML RECTAL ONE (08:30)
[2017-07-28] MEDS: PRAVASTATIN SOD 40 MG TAB PO SCH (09:25)
[2017-07-28] MEDS: SODIUM CHLORIDE 0.9% FLUSH 10 ML FLUSH IV FLUSH PRN (09:25)
[2017-07-28] MEDS: LACTULOSE SYRUP 20 GM/30 ML CUP PO SCH (09:26)
[2017-07-28] MEDS: CALCIUM/VITAMIN D 250 MG/125 U TAB PO SCH ×3 (09:26→17:12)
[2017-07-28] MEDS: CHOLECALCIFEROL (VIT D3) 1000 UNIT TAB PO SCH (09:26)
[2017-07-28] MEDS: VALPROIC ACID SYRUP 250 MG/5 ML UDC PO SCH (09:27)
[2017-07-28] MEDS: HYDROCHLOROTHIAZIDE 12.5 MG CAP PO SCH (09:27)
[2017-07-28] MEDS: LIDOCAINE HCL 5% PATCH T-DERMAL SCH (09:31)
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
[2017-07-28] MEDS ORDERED: ACETAMINOPHEN/HYDROcodone 325 MG/5 MG TAB PO PRN (12:00)
[2017-07-28] MEDS ORDERED: ACETAMINOPHEN/HYDROcodone 325 MG/7.5 MG TAB PO PRN (12:00)
[2017-07-28] MEDS ORDERED: chlorproMAZINE HCL 25 MG TAB PO ONE (12:00)
--- NOTE | 2017-07-28 13:20 | HHI.NSPN ---
History Chief Complaint: Back and arm pain Interval History Patient with T11 fracture without subluxation retropulsion or significant compression. Possible ankylosing spondylitis. Sacral contusions. Complains primarily of midline sacral region discomfort. Exam Results Vital Signs Date Time Temp Pulse Resp B/P (MAP) Pulse Ox O2 Delivery O2 Flow Rate FiO2 07/28/17 12:41 94 21 07/28/17 12:00 98.7 98 16 139/88 (105) 07/27/17 10:30 Nasal Cannula 2.00 Intake and Output 07/28/17 07/28/17 07/29/17 08:00 16:00 00:00 Intake Total 2327 ml Output Total 100 ml Balance -100 ml 2327 ml Physical Examination General: Awake and alert. No apparent distress. Patient's daughter in the room with him Neurologic: Speech clear and appropriate Sensation intact light touch lower extremities as well as hands Strength is normal major flexion and extension groups right and left lower extremity No ankle clonus Dressings in place bilateral upper extremities Lab, Micro, Other Results Laboratory Tests Test 07/28/17 05:19 White Blood Count 13.2 TH/MM3 Red Blood Count 3.01 MIL/MM3 Hemoglobin 9.2 GM/DL Hematocrit 27.7 % Mean Corpuscular Volume 92.3 FL Mean Corpuscular Hemoglobin 30.5 PG Mean Corpuscular Hemoglobin Concent 33.0 % Red Cell Distribution Width 15.2 % Platelet Count 179 TH/MM3 Mean Platelet Volume 9.6 FL Neutrophils (%) (Auto) 87.7 % Lymphocytes (%) (Auto) 3.5 % Monocytes (%) (Auto) 5.6 % Eosinophils (%) (Auto) 2.4 % Basophils (%) (Auto) 0.8 % Neutrophils # (Auto) 11.6 TH/MM3 Lymphocytes # (Auto) 0.5 TH/MM3 Monocytes # (Auto) 0.7 TH/MM3 Eosinophils # (Auto) 0.3 TH/MM3 Basophils # (Auto) 0.1 TH/MM3 CBC Comment DIFF FINAL Differential Comment Blood Urea Nitrogen 52 MG/DL Creatinine 2.37 MG/DL Random Glucose 255 MG/DL Total Protein 5.2 GM/DL Albumin 1.6 GM/DL Calcium Level 8.2 MG/DL Alkaline Phosphatase 148 U/L Aspartate Amino Transf (AST/SGOT) 20 U/L Alanine Aminotransferase (ALT/SGPT) 8 U/L Total Bilirubin 0.9 MG/DL Sodium Level 144 MEQ/L Potassium Level 3.8 MEQ/L Chloride Level 107 MEQ/L Carbon Dioxide Level 28.6 MEQ/L Anion Gap 8 MEQ/L Estimat Glomerular Filtration Rate 27 ML/MIN Medical Decision Making Impression and Plan Impression: 1. Stable following T11 fracture. Plan: Findings were discussed with the patient and his daughter in the room today. He has trouble wearing the brace out of bed, it is compressing his chin and thighs. We will ask for a revision of the brace. Continue to mobilize out of bed with therapy Leland Scott MD Jul 28, 2017 13:20
--- NOTE | 2017-07-28 15:50 | RADRPT ---
EXAM DATE/TIME: 07/28/2017 15:59 [facility] COMPARISON: No previous studies available for comparison. INDICATIONS : ASSISTED. Trauma. Right knee pain. MEDICAL HISTORY : None. SURGICAL HISTORY : None. ENCOUNTER: Initial ACUITY: 3 days PAIN SCORE: 7/10 LOCATION: Right lateral FINDINGS: Four view examination of the right knee demonstrates no evidence of fracture or dislocation. Bony mi neralization is normal. The articular surfaces are intact. Mild degenerative changes noted in the m edial compartment. The suprapatellar soft tissues have a normal configuration. CONCLUSION: Negative trauma study with no evidence of fracture or malalignment. Artemio Arshad MD on July 28, 2017 at 15:48 Board Certified Radiologist. This report was verified electronically.
--- NOTE | 2017-07-28 15:50 | RADRPT ---
EXAM DATE/TIME: 07/28/2017 15:59 [facility] COMPARISON: No previous studies available for comparison. INDICATIONS : CORRECTION. Trauma. Right knee pain. MEDICAL HISTORY : None. SURGICAL HISTORY : None. ENCOUNTER: Initial ACUITY: 3 days PAIN SCORE: 7/10 LOCATION: Right lateral FINDINGS: Four view examination of the right knee demonstrates no evidence of fracture or dislocation. Bony mi neralization is normal. The articular surfaces are intact. Mild degenerative changes noted in the m edial compartment. The suprapatellar soft tissues have a normal configuration. CONCLUSION: Negative trauma study with no evidence of fracture or malalignment. Artemio Arshad MD on July 28, 2017 at 15:48 Board Certified Radiologist. This report was verified electronically.
--- NOTE | 2017-07-28 15:50 | RADRPT ---
EXAM DATE/TIME: 07/28/2017 15:59 [facility] COMPARISON: No previous studies available for comparison. INDICATIONS : PENITENTIARY. Trauma. Right knee pain. MEDICAL HISTORY : None. SURGICAL HISTORY : None. ENCOUNTER: Initial ACUITY: 3 days PAIN SCORE: 7/10 LOCATION: Right lateral FINDINGS: Four view examination of the right knee demonstrates no evidence of fracture or dislocation. Bony mi neralization is normal. The articular surfaces are intact. Mild degenerative changes noted in the m edial compartment. The suprapatellar soft tissues have a normal configuration. CONCLUSION: Negative trauma study with no evidence of fracture or malalignment. Artemio Arshad MD on July 28, 2017 at 15:48 Board Certified Radiologist. This report was verified electronically.
[2017-07-28] MEDS: guaiFENesin E.R. 600 MG TAB PO SCH ×2 (17:12→22:53)
[2017-07-28] MEDS: LORATADINE 10 MG TAB PO SCH (17:12)
[2017-07-28 18:12] LABS: AUTOMATED NEUTROPHIL # 11.9 TH/MM3 (1.8-7.7); BASOPHIL % 0.2 % (0.0-2.0); EOSINOPHIL # 0.3 TH/MM3 (0-0.4); EOSINOPHIL % 1.8 % (0.0-4.0); HEMATOCRIT 28.5 % (39.0-51.0); HEMOGLOBIN 9.4 GM/DL (13.0-17.0); LYMPH % 6.2 % (9.0-44.0); LYMPHOCYTE # 0.9 TH/MM3 (1.0-4.8); MEAN CELL VOLUME 92.3 FL (80.0-100.0); MEAN CORPUSCULAR HEMOGLOBIN 30.4 PG (27.0-34.0); MEAN PLATELET VOLUME 9.6 FL (7.0-11.0); MONO % 6.1 % (0.0-8.0); MONOCYTE # 0.8 TH/MM3 (0-0.9); NEUT % 85.7 % (16.0-70.0); PLATELET COUNT 189 TH/MM3 (150-450); RED BLOOD COUNT 3.09 MIL/MM3 (4.50-5.90); RED CELL DISTRIBUTION WIDTH 15.1 % (11.6-17.2); WHITE BLOOD COUNT 13.9 TH/MM3 (4.0-11.0)
--- NOTE | 2017-07-28 18:22 | RADRPT ---
EXAM DATE/TIME: 07/28/2017 18:32 [facility] COMPARISON: CHEST SINGLE AP, July 28, 2017, 5:50. INDICATIONS : Short of breath. MEDICAL HISTORY : None. SURGICAL HISTORY : None. ENCOUNTER: Initial ACUITY: 1 day PAIN SCORE: 0/10 LOCATION: Bilateral chest FINDINGS: A single AP semierect portable view of the chest was obtained and again demonstrates a right internal jugular central venous line in place. Mild streaky perihilar and bibasilar opacities remain with no focal consolidation. There is no distinct effusion. The heart size remains mildly prominent. Overlyin g electrocardiogram leads are present. The bony thorax is stable and intact with postsurgical changes involving the left humerus. CONCLUSION: Lacie perihilar and bibasilar opacities remain without significant change. Artemio Arshad MD on July 28, 2017 at 18:19 Board Certified Radiologist. This report was verified electronically.
--- NOTE | 2017-07-28 18:27 | RADRPT ---
EXAM DATE/TIME: 07/28/2017 18:17 [facility] COMPARISON: CT BRAIN W/O CONTRAST, July 19, 2017, 3:21. INDICATIONS : Altered mental status. RADIATION DOSE: 48.21 CTDIvol (mGy) MEDICAL HISTORY : Hypertension. Cardiovascular disease SURGICAL HISTORY : None. ENCOUNTER: Initial ACUITY: 1 day PAIN SCALE: Non-responsive LOCATION: cranial TECHNIQUE: Multiple contiguous axial images were obtained of the head. Using automated exposure control and adj ustment of the mA and/or kV according to patient size, radiation dose was kept as low as reasonably a chievable to obtain optimal diagnostic quality images. DICOM format image data is available electro nically for review and comparison. FINDINGS: CEREBRUM: The ventricles are normal for age with moderate atrophic change. Chronic small vessel ischemic change s are present as well. There is focal decreased attenuation noted in the deep white matter of high pa rietal lobes. This is unchanged. Chronic bilateral subdural hygromas are noted over the frontal lobes . No evidence of midline shift, mass lesion, hemorrhage or acute infarction. No extra-axial fluid co llections are seen. POSTERIOR FOSSA: The cerebellum and brainstem are intact. The 4th ventricle is midline. The cerebellopontine angle i s unremarkable. EXTRACRANIAL: The visualized portion of the orbits is intact. SKULL: The calvaria is intact. No evidence of skull fracture. CONCLUSION: 1. No acute hemorrhage or mass effect. 2. Focal decreased attenuation is again noted in both high parietal lobe white matter without signifi cant change. 3. Moderate atrophy and chronic small vessel ischemic change. 4. Chronic subdural hygromas. Artemio Arshad MD on July 28, 2017 at 18:23 Board Certified Radiologist. This report was verified electronically.
[2017-07-28 18:28] LABS: ALBUMIN 1.7 GM/DL (3.4-5.0); AST (GOT) 24 U/L (15-37); BICARBONATE 27.2 MEQ/L (21.0-32.0); BLOOD UREA NITROGEN 49 MG/DL (7-18); CALCIUM 8.5 MG/DL (8.5-10.1); CHLORIDE 107 MEQ/L (98-107); CREATININE 2.35 MG/DL (0.60-1.30); GLOMERULAR FILTRATION RATE 27 ML/MIN (>89); GLUCOSE,RANDOM 231 MG/DL (74-106); SODIUM (NA) 142 MEQ/L (136-145)
[2017-07-28 18:29] LABS: ALT (GPT) 9 U/L (12-78)
[2017-07-28 18:31] LABS: ALKALINE PHOSPHATASE 155 U/L (45-117); TOTAL BILIRUBIN ADULT 0.9 MG/DL (0.2-1.0); TOTAL PROTEIN 5.3 GM/DL (6.4-8.2)
[2017-07-28 19:28] LABS: BANDS 5 % (0-6); LYMPHOCYTES 2 % (9-44); METAMYELOCYTES 2 % (0-1); MONOCYTES 2 % (0-8); MYELOCYTES 1 % (0-0); NEUTROPHIL # MANUAL DIFF 13.1 TH/MM3 (1.8-7.7); POLYS (SEG NEUTROPHILS) 86 % (16-70)
[2017-07-28] MEDS ORDERED: NALOXONE HCL 0.4 MG/ML AMP IV ONE (20:45)
[2017-07-28] MEDS: INSULIN DETEMIR 100 UNITS/ML VIAL SQ SCH (22:55)
[2017-07-29] VITALS (8 sets, daily range): BP systolic 112–125; BP diastolic 55–84; PULSE 76–100; RESP 18; TEMP 97.2–99.5; O2SAT 93–95
[2017-07-29] MEDS ORDERED: chlorproMAZINE HCL 10 MG TAB PO ONE (01:15)
[2017-07-29 05:44] LABS: AUTOMATED NEUTROPHIL # 10.3 TH/MM3 (1.8-7.7); BASOPHIL % 0.4 % (0.0-2.0); EOSINOPHIL # 0.2 TH/MM3 (0-0.4); EOSINOPHIL % 1.8 % (0.0-4.0); HEMATOCRIT 24.7 % (39.0-51.0); LYMPH % 3.4 % (9.0-44.0); LYMPHOCYTE # 0.4 TH/MM3 (1.0-4.8); MEAN CELL VOLUME 92.5 FL (80.0-100.0); MEAN CORPUSCULAR HGB CONC 32.4 % (32.0-36.0); MEAN PLATELET VOLUME 9.8 FL (7.0-11.0); MONO % 5.3 % (0.0-8.0); MONOCYTE # 0.6 TH/MM3 (0-0.9); NEUT % 89.1 % (16.0-70.0); PLATELET COUNT 168 TH/MM3 (150-450); RED BLOOD COUNT 2.67 MIL/MM3 (4.50-5.90); RED CELL DISTRIBUTION WIDTH 14.7 % (11.6-17.2); WHITE BLOOD COUNT 11.6 TH/MM3 (4.0-11.0)
[2017-07-29 06:11] LABS: ALBUMIN 1.5 GM/DL (3.4-5.0); AST (GOT) 18 U/L (15-37); BICARBONATE 28.1 MEQ/L (21.0-32.0); BLOOD UREA NITROGEN 48 MG/DL (7-18); CALCIUM 8.1 MG/DL (8.5-10.1); CHLORIDE 106 MEQ/L (98-107); CREATININE 2.38 MG/DL (0.60-1.30); GLOMERULAR FILTRATION RATE 27 ML/MIN (>89); GLUCOSE,RANDOM 279 MG/DL (74-106); SODIUM (NA) 141 MEQ/L (136-145)
[2017-07-29 06:14] LABS: ALKALINE PHOSPHATASE 144 U/L (45-117); ALT (GPT) 8 U/L (12-78); TOTAL BILIRUBIN ADULT 0.7 MG/DL (0.2-1.0); TOTAL PROTEIN 4.7 GM/DL (6.4-8.2)
[2017-07-29] MEDS: DILTIAZEM HCL 60 MG TAB PO SCH ×3 (06:29→21:34)
[2017-07-29] MEDS: METHOCARBAMOL 500 MG TAB PO SCH ×3 (06:29→22:00)
[2017-07-29] MEDS: SODIUM CHLOR 0.45% 1000 ML INJ 1,000 ML IV SCH ×2 (06:40→11:41)
[2017-07-29] MEDS: INSULIN ASPART SUPPLEMENTAL SCALE SQ SCH ×4 (08:00→21:00)
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
[2017-07-29] MEDS: SODIUM CHLORIDE 0.9% FLUSH 5 ML FLUSH IVF SCH ×2 (09:00→21:00)
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
[2017-07-29] MEDS: LIDOCAINE HCL 5% PATCH T-DERMAL SCH (09:47)
--- NOTE | 2017-07-29 09:47 | RADRPT ---
EXAM DATE/TIME: 07/29/2017 09:08 [facility] COMPARISON: FOREARM LEFT (2VWS), July 19, 2017, 11:57. INDICATIONS : Left forearm pain post trauma MEDICAL HISTORY : None. SURGICAL HISTORY : Left Orif Forearm, Humerus ENCOUNTER: Subsequent ACUITY: 4 - 6 days PAIN SCORE: 8/10 LOCATION: Left Forearm FINDINGS: Plate is seen bridging mid shaft of the ulna anatomic alignment. The second fracture is seen distal ulna in anatomic alignment, distal to the plate. Again seen is deformity about the radial head. CONCLUSION: Fractures as above. Arsen Bazzi MD FACR on July 29, 2017 at 9:44 Board Certified Radiologist. This report was verified electronically.
[2017-07-29] MEDS: HEPARIN SODIUM - SQ 10,000 UNITS/ML VIAL SQ SCH ×2 (09:50→21:17)
[2017-07-29] MEDS: guaiFENesin E.R. 600 MG TAB PO SCH ×2 (09:50→21:17)
[2017-07-29] MEDS: LACTULOSE SYRUP 20 GM/30 ML CUP PO SCH (09:50)
[2017-07-29] MEDS: CHOLECALCIFEROL (VIT D3) 1000 UNIT TAB PO SCH (09:50)
[2017-07-29] MEDS: METOPROLOL TARTRATE 50 MG TAB PO SCH ×2 (09:50→21:33)
[2017-07-29] MEDS: CALCIUM/VITAMIN D 250 MG/125 U TAB PO SCH ×3 (09:50→17:46)
[2017-07-29] MEDS: FAMOTIDINE 20 MG TAB PO SCH ×2 (09:51→21:18)
[2017-07-29] MEDS: PRAVASTATIN SOD 40 MG TAB PO SCH (09:51)
[2017-07-29] MEDS: DOCUSATE SODIUM 50 MG/SENNA 8.6 MG TAB PO SCH ×2 (09:51→21:18)
[2017-07-29] MEDS: SODIUM CHLORIDE 0.9% FLUSH 10 ML FLUSH IV FLUSH PRN (09:51)
[2017-07-29] MEDS: MAGNESIUM HYDROXIDE SUSP 30 ML CUP PO SCH ×2 (09:57→21:17)
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
--- NOTE | 2017-07-29 12:21 | EKG ---
Date Performed: 07/28/2017 Time Performed: 17:50:59 PTAGE: 77 years EKG: ATRIAL FIBRILLATION WITH RAPID VENTRICULAR RESPONSE WITH ABERRANT CONDUCTION OR VENTRICULAR PREMATURE COMPLEXES NONSPECIFIC ST & T-WAVE ABNORMALITY ABNORMAL ECG PREVIOUS TRACING : 07/23/2017 20.22 Compared to the prior study of 07/23/2017, the rate is slow er. Nonspecific ST-T changes have improved. DOCTOR: Bradley Thomas Interpretating Date/Time 07/29/2017 12:17:14
[2017-07-29] MEDS: GABAPENTIN 100 MG CAP PO SCH ×2 (12:53→17:46)
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
[2017-07-29] MEDS: LORATADINE 10 MG TAB PO SCH (17:45)
[2017-07-29] MEDS: REMOVE OLD LIDOCAINE PATCH T-DERMAL SCH (21:00)
[2017-07-29] MEDS: TAMSULOSIN HCL 0.4 MG CAP PO SCH (21:18)
[2017-07-29] MEDS: INSULIN DETEMIR 100 UNITS/ML VIAL SQ SCH (21:18)
[2017-07-30] MEDS: SODIUM CHLOR 0.45% 1000 ML INJ 1,000 ML IV SCH ×2 (00:30→09:42)
[2017-07-30 05:17] VITALS: BP 118/69; PULSE 92; RESP 18; TEMP 97; O2SAT 94
[2017-07-30] MEDS: DILTIAZEM HCL 60 MG TAB PO SCH ×2 (06:00→14:56)
[2017-07-30] MEDS: METHOCARBAMOL 500 MG TAB PO SCH ×2 (06:00→14:57)
[2017-07-30 06:18] LABS: AUTOMATED NEUTROPHIL # 11.1 TH/MM3 (1.8-7.7); BASOPHIL # 0.1 TH/MM3 (0-0.2); BASOPHIL % 0.5 % (0.0-2.0); EOSINOPHIL # 0.2 TH/MM3 (0-0.4); EOSINOPHIL % 1.6 % (0.0-4.0); HEMATOCRIT 24.9 % (39.0-51.0); HEMOGLOBIN 8.2 GM/DL (13.0-17.0); LYMPH % 4.1 % (9.0-44.0); LYMPHOCYTE # 0.5 TH/MM3 (1.0-4.8); MEAN CELL VOLUME 91.9 FL (80.0-100.0); MEAN CORPUSCULAR HEMOGLOBIN 30.2 PG (27.0-34.0); MEAN CORPUSCULAR HGB CONC 32.9 % (32.0-36.0); MEAN PLATELET VOLUME 9.9 FL (7.0-11.0); MONO % 6.1 % (0.0-8.0); MONOCYTE # 0.8 TH/MM3 (0-0.9); NEUT % 87.7 % (16.0-70.0); PLATELET COUNT 188 TH/MM3 (150-450); RED BLOOD COUNT 2.71 MIL/MM3 (4.50-5.90); RED CELL DISTRIBUTION WIDTH 14.5 % (11.6-17.2); WHITE BLOOD COUNT 12.6 TH/MM3 (4.0-11.0)
[2017-07-30 06:53] LABS: ALBUMIN 1.5 GM/DL (3.4-5.0); ALKALINE PHOSPHATASE 199 U/L (45-117); ALT (GPT) 16 U/L (12-78); AST (GOT) 44 U/L (15-37); BICARBONATE 28.9 MEQ/L (21.0-32.0); BLOOD UREA NITROGEN 48 MG/DL (7-18); CALCIUM 7.9 MG/DL (8.5-10.1); CHLORIDE 106 MEQ/L (98-107); CREATININE 2.41 MG/DL (0.60-1.30); GLOMERULAR FILTRATION RATE 26 ML/MIN (>89); GLUCOSE,RANDOM 204 MG/DL (74-106); SODIUM (NA) 142 MEQ/L (136-145); TOTAL BILIRUBIN ADULT 0.6 MG/DL (0.2-1.0); TOTAL PROTEIN 4.8 GM/DL (6.4-8.2)
[2017-07-30 08:15] VITALS: BP 115/65; PULSE 85; RESP 21; TEMP 98.7; O2SAT 99
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
[2017-07-30] MEDS: SODIUM CHLORIDE 0.9% FLUSH 5 ML FLUSH IVF SCH (09:00)
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
[2017-07-30] MEDS: CHOLECALCIFEROL (VIT D3) 1000 UNIT TAB PO SCH (09:38)
[2017-07-30] MEDS: PRAVASTATIN SOD 40 MG TAB PO SCH (09:38)
[2017-07-30] MEDS: DOCUSATE SODIUM 50 MG/SENNA 8.6 MG TAB PO SCH (09:38)
[2017-07-30] MEDS: FAMOTIDINE 20 MG TAB PO SCH (09:38)
[2017-07-30] MEDS: MAGNESIUM HYDROXIDE SUSP 30 ML CUP PO SCH (09:38)
[2017-07-30] MEDS: METOPROLOL TARTRATE 50 MG TAB PO SCH (09:38)
[2017-07-30] MEDS: guaiFENesin E.R. 600 MG TAB PO SCH (09:38)
[2017-07-30] MEDS: CALCIUM/VITAMIN D 250 MG/125 U TAB PO SCH ×2 (09:38→12:21)
[2017-07-30] MEDS: LACTULOSE SYRUP 20 GM/30 ML CUP PO SCH (09:38)
[2017-07-30] MEDS: GABAPENTIN 100 MG CAP PO SCH ×2 (09:38→12:21)
[2017-07-30] MEDS: LIDOCAINE HCL 5% PATCH T-DERMAL SCH (09:39)
[2017-07-30] MEDS: HEPARIN SODIUM - SQ 10,000 UNITS/ML VIAL SQ SCH (09:39)
[2017-07-30] MEDS: INSULIN ASPART SUPPLEMENTAL SCALE SQ SCH ×2 (09:43→12:17)
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
[2017-07-30] MEDS ORDERED: NOVOLOGSS SQ (11:32)
[2017-07-30] MEDS ORDERED: CALC250 PO (11:32)
[2017-07-30] MEDS ORDERED: SENN1TAB PO (11:32)
[2017-07-30] MEDS ORDERED: VITA1000 PO (11:32)
[2017-07-30] MEDS ORDERED: OXYC-392 PO (11:32)
[2017-07-30] MEDS ORDERED: ERGO1CAP30 PO (11:32)
[2017-07-30] MEDS ORDERED: METO-309 PO (11:32)
[2017-07-30] MEDS ORDERED: HEPA10003 SQ (11:32)
[2017-07-30] MEDS ORDERED: DILT60TA33 PO (11:32)
[2017-07-30] MEDS ORDERED: MAGN400S PO (11:32)
[2017-07-30] MEDS ORDERED: guaiFENesin ER PO (11:32)
[2017-07-30] MEDS ORDERED: CLAR10TA7 PO (11:32)
[2017-07-30] MEDS ORDERED: LEVEMIR SQ (11:32)
[2017-07-30] MEDS ORDERED: METH500T3 PO (11:32)
[2017-07-30] MEDS ORDERED: FAMO20TA2 PO (11:32)
[2017-07-30] MEDS ORDERED: GLIP5 PO (11:32)
[2017-07-30] MEDS ORDERED: GABA100C4 PO (11:32)
--- NOTE | 2017-07-30 11:36 | HHI.PR ---
Subjective Remarks Follow-up hypertension, chronic kidney disease. The patient has no specific complaints at this time. He states that his pain is reasonably well controlled. No chest pain or dyspnea. No nausea, vomiting, diarrhea, constipation. Objective Vitals Vital Signs Date Time Temp Pulse Resp B/P (MAP) Pulse Ox O2 Delivery O2 Flow Rate FiO2 07/30/17 08:15 98.7 85 21 115/65 (82) 99 07/30/17 05:17 97.0 92 18 118/69 (85) 94 07/29/17 23:08 97.9 100 18 125/84 (98) 95 07/29/17 20:56 Nasal Cannula 2.00 07/29/17 19:47 Nasal Cannula 2.00 07/29/17 16:00 97.2 79 18 115/56 (75) 94 07/29/17 14:30 93 Nasal Cannula 2.00 07/29/17 14:05 18 07/29/17 11:49 99.5 76 18 115/61 (79) 93 I/O 07/29/17 07/29/17 07/29/17 07/30/17 07/30/17 07/30/17 07:00 15:00 23:00 07:00 15:00 23:00 Intake Total 360 ml 480 ml 800 ml 651 ml Output Total 650 ml 800 ml Balance -290 ml -320 ml 800 ml 651 ml Intake Oral 360 ml 480 ml IV Total 800 ml 651 ml Output Urine Total 650 ml 800 ml Bladder Scan Volume Amount 1600 ml # Bowel Movements 0 0 Result Diagram: 07/30/17 0545 07/30/17 0545 Imaging Last Impressions Radius/Ulna X-Ray 07/29/17 0000 Signed Impressions: Service Date/Time: Saturday, July 29, 2017 09:08 - CONCLUSION: Fractures as above. Arsen Bazzi MD FACR Elbow X-Ray 07/29/17 0000 Signed Impressions: Service Date/Time: Saturday, July 29, 2017 09:03 - CONCLUSION: Fractures as above. Plate is seen in the distal humerus and mid ulna. Arsen Bazzi MD FACR Chest X-Ray 07/28/17 0600 Signed Impressions: Service Date/Time: Friday, July 28, 2017 05:50 - CONCLUSION: Modestly improved bibasilar consolidation. Gaston Jones MD Knee X-Ray 07/28/17 Signed Impressions: Service Date/Time: Friday, July 28, 2017 15:59 - CONCLUSION: Negative trauma study with no evidence of fracture or malalignment. Artemio Arshad MD Head CT 07/28/17 Signed Impressions: Service Date/Time: Friday, July 28, 2017 18:17 - CONCLUSION: 1. No acute hemorrhage or mass effect. 2. Focal decreased attenuation is again noted in both high parietal lobe white matter without significant change. 3. Moderate atrophy and chronic small vessel ischemic change. 4. Chronic subdural hygromas. Artemio Arshad MD Humerus X-Ray 07/23/17 Signed Impressions: Service Date/Time: Sunday, July 23, 2017 18:09 - CONCLUSION: Intact postsurgical changes for technique. Danuta Gómez MD Thoracic Spine CT 07/19/17304 Signed Impressions: Service Date/Time: Wednesday, July 19, 2017 03:29 - CONCLUSION: 1. Fracture through superior T11. No retropulsion of posterior fragments or canal stenosis. 2. Right 11th rib fracture. Venkat Hong MD Pelvis X-Ray 07/19/17304 Signed Impressions: Service Date/Time: Wednesday, July 19, 2017 02:56 - CONCLUSION: Limited study without fracture. Venkat Hong MD Maxillofacial CT 07/19/17304 Signed Impressions: Service Date/Time: Wednesday, July 19, 2017 03:24 - CONCLUSION: 1. Fluid in the sphenoid sinuses greater on the right. 2. No facial fracture seen. Venkat Hong MD Lumbar Spine CT 07/19/17304 Signed Impressions: Service Date/Time: Wednesday, July 19, 2017 03:29 - CONCLUSION: 1. No lumbar vertebral fracture. 2. Disc bulges at L3-4 and L4-5 levels. 3. Right 11th rib fracture. Venkat Hong MD Chest CT 07/19/17304 Signed Impressions: Service Date/Time: Wednesday, July 19, 2017 03:29 - CONCLUSION: 1. T11 vertebral fracture. 2. Fracture of the right seventh rib. 3. 8mm nodule right lung. 4. Minimal ground glass densities in the right lower lobe. Venkat Hong MD Cervical Spine CT 07/19/17 0305 Signed Impressions: Service Date/Time: Wednesday, July 19, 2017 03:23 - CONCLUSION: 1. No fracture or subluxation. 2. Protrusions at C3-4 and C6-7. Venkat Hong MD Abdomen/Pelvis CT 07/19/17 0305 Signed Impressions: Service Date/Time: Wednesday, July 19, 2017 03:29 - CONCLUSION: 1. Fractures of T11. No retropulsion of posterior fragments. 2. Right 11th rib fracture. 3. No abdominal visceral injury. Venkat Hong MD Objective Remarks General: No acute distress. HEENT: Superficial abrasions on the nose and chin. Heart: Regular rate and rhythm. No murmur. Lungs: Clear to auscultation bilaterally. No wheezes, rales, or rhonchi. Breathing is nonlabored. Abdomen: Soft, nontender, nondistended. Extremities: No lower extremity edema. Bilateral upper extremities in splints. Psych: Alert and oriented. Procedures Open reduction internal fixation right radial shaft fracture, irrigation and debridement of open left ulna shaft fracture, open reduction total fixation of left ulna shaft fracture, irrigation debridement of open left radial head fracture, open treatment of left radial head fracture with excision by Dr Almaraz ortho on 07/19/17 A/P Assessment and Plan 1. Bilateral forearm fractures, closed right radial shaft fracture, open left ulna shaft fracture, open left radial head fracture, closed left humerus fracture, degloving injury left upper extremity: Status post ORIF right radial shaft fracture, irrigation and debridement of open left ulna shaft fracture, ORIF left ulna shaft fracture, irrigation and debridement of open left radial head fracture, open treatment of left radial head fracture with excision by Dr. Almaraz on 07/19/17. Status post ORIF of left humerus fracture on 07/23/17. Further management per orthopedic surgery. Continue pain control. Nonweightbearing bilateral upper extremities. Daily dressing changes. Patient will need radial head replacement of left elbow. 2. T11 vertebral body fracture, rib fractures: Nonoperative management at this time. Appreciate neurosurgery recommendations. Continue TLSO brace. 3. Hypotension: Resolved. 4. Anemia secondary to acute blood loss: Improved following transfusion of 3 units PRBCs. H&H are stable. 5. Rhabdomyolysis: Resolved. 6. Hypertension: 7. Possible ACS during surgery: Appreciate cardiology recommendations. No invasive cardiac workup at this time. 2-D echocardiogram shows EF 40-45% with moderate pulmonary hypertension. 8. Atrial fibrillation with RVR: Rate controlled. Continue metoprolol, Cardizem. 9. Confusion, mild cognitive impairment: Neuropsych is following. Likely metabolic secondary to recent surgery, injury. 10. DVT prophylaxis: SCDs. Rashel Pate MD Jul 30, 2017 11:36
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
[2017-07-30 11:50] VITALS: O2SAT 93
[2017-07-30] MEDS ORDERED: glipiZIDE 5 MG TAB PO SCH (12:00)
[2017-07-30 12:10] VITALS: BP 116/65; PULSE 92; RESP 20; TEMP 97; O2SAT 93
== END 2017-07-30 15:47 | DRG 493 ==
LOC: NEPI 03:03 → NEDA 03:41 → EDBD 03:41 → N03B 03:48 → N06B 09:58 → N03B 12:38 → N06B 07-27 15:35
PROVIDERS: ADMIT Surgery; ATTEND Surgery
PROC: 0PSH04Z Reposition Right Radius with Internal Fixation Device, Open Approach (ICD-10-PCS; 2017-07-19)
PROC: 0PSL04Z Reposition Left Ulna with Internal Fixation Device, Open Approach (ICD-10-PCS; 2017-07-19)
PROC: 0PBL0ZZ Excision of Left Ulna, Open Approach (ICD-10-PCS; 2017-07-19)
PROC: 0PBJ0ZZ Excision of Left Radius, Open Approach (ICD-10-PCS; 2017-07-19)
PROC: 30233N1 Transfusion of Nonautologous Red Blood Cells into Peripheral Vein, Percutaneous Approach (ICD-10-PCS; 2017-07-19)
PROC: 0PSG04Z Reposition Left Humeral Shaft with Internal Fixation Device, Open Approach (ICD-10-PCS; principal; 2017-07-23 16:26)
DX: S52.122B Displaced fracture of head of left radius, initial encounter for open fracture type I or II (principal); S22.089A Unspecified fracture of T11-T12 vertebra, initial encounter for closed fracture; E87.0 Hyperosmolality and hypernatremia; I95.9 Hypotension, unspecified; E11.65 Type 2 diabetes mellitus with hyperglycemia; M62.82 Rhabdomyolysis; S22.41XA Multiple fractures of ribs, right side, initial encounter for closed fracture; I48.2 Chronic atrial fibrillation; D62 Acute posthemorrhagic anemia; S42.302A Unspecified fracture of shaft of humerus, left arm, initial encounter for closed fracture; Z79.4 Long term (current) use of insulin; S52.301A Unspecified fracture of shaft of right radius, initial encounter for closed fracture; S52.202B Unspecified fracture of shaft of left ulna, initial encounter for open fracture type I or II; S00.81XA Abrasion of other part of head, initial encounter; S80.212A Abrasion, left knee, initial encounter; V29.49XA Motorcycle driver injured in collision with other motor vehicles in traffic accident, initial encounter; Y92.488 Other paved roadways as the place of occurrence of the external cause; I10 Essential (primary) hypertension; N28.9 Disorder of kidney and ureter, unspecified; R33.9 Retention of urine, unspecified; R91.1 Solitary pulmonary nodule; H91.93 Unspecified hearing loss, bilateral; G31.84 Mild cognitive impairment of uncertain or unknown etiology; E55.9 Vitamin D deficiency, unspecified; R41.0 Disorientation, unspecified; E66.9 Obesity, unspecified; Z68.28 Body mass index [BMI] 28.0-28.9, adult
CPT/HCPCS: 36430; 36600; 70450; 70486; 71010; 71260; 72125; 72128; 72131; 72170; 73060; 73080; 73090; 73564; 74177; 76000; 80048; 80053; 80307; 81001; 82306; 82435; 82550; 82552; 82565; 82805; 82947; 82948; 83036; 83605; 83735; 83880; 84132; 84295; 84484; 84520; 85007; 85014; 85018; 85025; 85027; 85610; 85730; 86160; 86317; 86803; 86850; 86900; 86901; 86920; 87040; 87205; 87641; 93005; 93306; 94002; 94003; 94150; 94640; 94664; 94667; 94668; J1170; C9113; J0131; J0360; J0461; J0610; J0690; J1100; J1160; J1200; J1580; J1644; J1650; J1815; J1940; J2270; J2310; J2405; J3370; J7030; J7050; J7120; L0150; L0484; P9016; Q9967

== ENCOUNTER → 2017-08-07 | Day surgery (SDC) | payer SELFPAY ==
[~2017-08-07] MED LIST: ASPI81CH6 CHEW; CALC250 PO; CHLORHEXIDINE GLUCONATE 2 % 1 PACK (2 CLOTHS) TOPICAL PRN; CLAR10TA7 PO; DILT60TA33 PO; FAMO20TA2 PO; GABA100C4 PO; GLIP5 PO; HEPA10003 SQ; HYDR-3583 PO; INSULIN HUMAN REGULAR 1,000 UNITS/10 ML VIAL SQ PRN; LACTATED RINGER'S 1000 ML IV PRN; LEVEMIR SQ; MAGN400S PO; METH500T3 PO; METO-309 PO; METOPROLOL TARTRATE 25 MG TAB PO PRN; NOVOLOGSS SQ; OXYC-392 PO; POVIDONE IODINE 5% (ANTISEPSIS KIT) 4 APPLICATIONS EACH NARE PRN; PRAV40TA2 PO; SENN1TAB PO; SODIUM CHLORID 0.9% 500 ML IV PRN; SODIUM CHLORIDE 0.9% INJ 100 ML ONE; TAMS0.4C4 PO; VITA1000 PO; VITA500012 PO; ceFAZolin INJ 1,000 MG VIAL ONE; guaiFENesin ER PO
[2017-08-07 15:50] VITALS: BP 98/41; PULSE 91; RESP 20; TEMP 97.8; O2SAT 94
--- NOTE | 2017-08-07 15:50 | GIPROC ---
[facility] [address] [facility]. [facility], [address] EGD WITH PEG PROCEDURE REPORT EXAM DATE: 08/07/2017 PATIENT NAME: True Jackson MR#: [id number] BIRTHDATE: 1940 ATTENDING: Travis Restrepo MD ORDER #: [id number] PHYSIOLOGICAL CHEMIST: Devi Mark and Aminah Addison STATUS: outpatient INDICATIONS: The patient is a 77 yr old male here for an EGD with PEG due to placement of PEG PROCEDURE PERFORMED: EGD with PEG placement MEDICATIONS: None and Per Anesthesia. TOPICAL ANESTHETIC: none CONSENT: The patient understands the risks and benefits of the procedure and understands that these risks include, but are not limited to: sedation, allergic reaction, infection, perforation and/or bleeding. Alternative means of evaluation and treatment include, among others: physical exam, x-rays, and/or surgical intervention. The patient elects to proceed with this endoscopic procedure. medical equipment was checked for proper function. Hand hygiene and appropriate measures for infection prevention was taken. After the risks, benefits and alternatives of the procedure were thoroughly explained, Informed consent was verified, confirmed and timeout was successfully executed by the treatment team. The patient was anesthetized with topical anesthesia and the Pentax [id number] endoscope was introduced through the mouth and advanced to the second portion of the duodenum. The instrument was slowly withdrawn as the mucosa was fully examined. Esophagitis was found in the total stomach. The stomach was then inflated with air, and by a combination of transillumination and manual palpation, the site for the gastrostomy tube placement was selected and marked on the anterior abdominal wall. The skin of the anterior abdomen was surgically prepped and draped with sterile towels. Utilizing strict sterile technique, the selected site was then anesthetized with 1% xylocaine by injection into the skin and subcutaneous tissue. A 1 cm incision was made through the skin and subcutaneous tissue, and the needle/cannula assembly was then passed through the abdominal wall and through the anterior wall of the stomach, maintaining visualization with the endoscope. A snare device previously placed through the instrument channel was then opened and placed around the cannula, the needle was removed, and the insertion wire was passed through the cannula and into the stomach lumen. The snare was then loosened from the cannula, and repositioned to snare the insertion wire. The snare was then pulled up to the endoscope distal tip, and the scope was then withdrawn bringing with it the snare and insertion wire. The insertion wire was then released from the snare, and then loop-attached to the Bard 20 Fr gastrostomy tube. Using the "pull technique", the G-tube was then pulled into place by traction on the insertion wire at the abdominal wall end. The G-tube insertion site was then cleansed once again, and the external bolster was placed over the tube to secure it to the abdominal wall. A sterile dressing was then applied, and the procedure terminated. no abnormalities The gastroscope was then slowly withdrawn and removed. ADVERSE EVENT: There were no complications. IMPRESSIONS: 1. Esophagitis was found in the lower third 2. Residual food seen in the gastric fundus, limited the exam and suggestive of possible Gastroparesis 3. Normal Duodenum RECOMMENDATIONS: PEG recomendations: 1- NPO for 6 hours except for meds 2- Flush PEG tube every 6 hours with water and after each PEG feeding 3- May resume regular diet in the morning 4- May use Ensure or Boost etc. for PEG tube feeding REPEAT EXAM: procedure as needed Travis Restrepo MD eSigned: Travis Restrepo MD 08/07/2017 3:50 PM cc: PATIENT NAME: True Jackson MR#: [id number]
== END | disposition home or self-care (01) ==
LOC: HSDC 11:59 → EDSTATUS 14:30
PROVIDERS: ATTEND Specialist
DX: K22.70 Barrett's esophagus without dysplasia (principal); R62.7 Adult failure to thrive; K20.9 Esophagitis, unspecified; I10 Essential (primary) hypertension
CPT/HCPCS: 00740; 43246; J0690

== ENCOUNTER 2017-09-04 05:10 | Observation (INO) | payer MEDICARE, BC ==
[~2017-09-04] VITALS: Ht 172.7 cm; Wt 63.5 kg
[2017-09-04] VITALS (13 sets, daily range): BP systolic 126–134; BP diastolic 72–77; PULSE 79–124; RESP 14–18; TEMP 97.3–97.6; O2SAT 96–98
[~2017-09-04 05:10] MED LIST changes: +ASPI81 PEG; -ASPI81CH6 CHEW; +CALC250 PEG; -CALC250 PO; -CHLORHEXIDINE GLUCONATE 2 % 1 PACK (2 CLOTHS) TOPICAL PRN; +CHOL1000 PEG; -CLAR10TA7 PO; +DILT60TA33 PEG; -DILT60TA33 PO; -FAMO20TA2 PO; +GABA100C4 PEG; -GABA100C4 PO; +GLIP5 PEG; -GLIP5 PO; +HYDR-3583 PEG; -HYDR-3583 PO; -INSULIN HUMAN REGULAR 1,000 UNITS/10 ML VIAL SQ PRN; -LACTATED RINGER'S 1000 ML IV PRN; -MAGN400S PO; -METH500T3 PO; +METO-309 PEG; -METO-309 PO; -METOPROLOL TARTRATE 25 MG TAB PO PRN; -OXYC-392 PO; -POVIDONE IODINE 5% (ANTISEPSIS KIT) 4 APPLICATIONS EACH NARE PRN; +PRAV40TA2 PEG; -PRAV40TA2 PO; +PREV30TA3 NG; -SENN1TAB PO; -SODIUM CHLORID 0.9% 500 ML IV PRN; -SODIUM CHLORIDE 0.9% INJ 100 ML ONE; +TAMS0.4C4 PEG; -TAMS0.4C4 PO; -VITA1000 PO; +VITA500012 PEG; -VITA500012 PO; -ceFAZolin INJ 1,000 MG VIAL ONE
[2017-09-04] MEDS ORDERED: POVIDONE IODINE 5% (ANTISEPSIS KIT) 4 APPLICATIONS EACH NARE PRN (05:45)
[2017-09-04] MEDS ORDERED: CHLORHEXIDINE GLUCONATE 2 % 1 PACK (2 CLOTHS) TOPICAL PRN (05:45)
[2017-09-04] MEDS ORDERED: SODIUM CHLORID 0.9% 500 ML IV PRN (05:45)
[2017-09-04] MEDS ORDERED: LACTATED RINGER'S 1000 ML IV PRN (05:45)
[2017-09-04] MEDS ORDERED: METOPROLOL TARTRATE 25 MG TAB PO PRN (05:45)
[2017-09-04] MEDS ORDERED: CHLORHEXIDINE GLUCONATE 4% SOLN 120 ML BTL TOPICAL SCH (05:45)
[2017-09-04] MEDS ORDERED: LIDOCAINE 2% JELLY 30 ML TUBE ONE (07:14)
[2017-09-04] MEDS ORDERED: MINERAL OIL 10 ML VIAL ONE (07:14)
[2017-09-04] MEDS ORDERED: ceFAZolin INJ 1,000 MG VIAL ONE (07:14)
[2017-09-04] MEDS ORDERED: VANCOMYCIN HCL 1000 MG VIAL ONE (07:14)
[2017-09-04] MEDS ORDERED: GENTAMICIN SULFATE 80 MG/2 ML VIAL ONE (07:15)
[2017-09-04] MEDS ORDERED: SODIUM CHLOR 0.9% 250 ML INJ 250 ML ONE (07:15)
[2017-09-04] MEDS ORDERED: OYST1TAB PO (07:35)
[2017-09-04] MEDS ORDERED: MULTTAB67 PO (07:35)
[2017-09-04] MEDS ORDERED: COLA100C5 (07:35)
[2017-09-04] MEDS ORDERED: ASCO500C (07:35)
[2017-09-04] MEDS ORDERED: LANTUS2P SQ (07:37)
[2017-09-04] MEDS ORDERED: DILTIAZEM HCL 25 MG/5 ML VIAL ONE (08:25)
[2017-09-04] MEDS ORDERED: BACITRACIN TOP OINT 15 GM TUBE ONE (08:35)
[2017-09-04] MEDS: LACTATED RINGER'S 1000 ML INJ 1,000 ML IV SCH (08:52)
[2017-09-04] MEDS ORDERED: CALCIUM/VITAMIN D 250 MG/125 U TAB PEG SCH (09:00)
[2017-09-04] MEDS: TAMSULOSIN HCL 0.4 MG CAP PO SCH (09:00)
[2017-09-04] MEDS: PRAVASTATIN SOD 40 MG TAB PEG SCH (09:00)
--- NOTE | 2017-09-04 09:00 | PD.OP ---
cc: Ronaldo Lopez MD Operative Report Date of Surgery: Sep 04, 2017 Preoperative Diagnosis: Open wound left forearm Postoperative Diagnosis: Procedure: Irrigation and debridement of left forearm wound, split-thickness skin graft 135 cm, application of wound VAC dressing Anesthesia: Gen. Surgeon: Ronaldo Lopez Cash Analyst(s): BRAYAN Martinez PA-C The surgical procedure was assisted by my physician engineering assistant. My P.A. presence was necessary throughout this case for the manipulation and positioning of the surgical extremity. My P.A. was assisting me throughout the duration of this procedure. The skill set of a physician engineering assistant was medically necessary to complete this procedure. During the surgical case the surgical dressing maker was working at the back table and the physician engineering assistant was directly assisting me. Operation and Findings: Patient brought to operating room and given IV sedation and general anesthesia. Timeout procedure was performed. IV antibiotics were administered. The left arm and left thigh were prepped with alcohol followed by Hibiclens and draped in usual sterile fashion. Procedure began with irrigation and debridement of the open wound. Skin subcutaneous tissue and fascia were sharply debrided. Overall the wound was healthy. A excisional debridement was performed. Muscle appeared be healthy and viable. There was granulation tissue forming. Wound was now thoroughly irrigated with sterile saline. Next was turned to skin grafting. Using the Jacquie dermatome set at 0.015 skin graft was obtained from the thigh. Skin graft was now meshed at a ratio of 1- 1.5. The skin graft was now placed over the open wound. Skin graft was stapled into position. The open wound was completely covered. Skin graft was now covered with Xeroform. A VAC dressing was cut to fit over the wound. VAC dressing was sealed appropriately. A compressive dressing was applied. VAC dressing was set on continuous. Patient was awakened and transferred to recovery in stable condition. Ronaldo Lopez MD Sep 04, 2017 09:00
[2017-09-04] MEDS ORDERED: DO NOT ADM ANY ANTICOAGULANT DRUGS PRN (09:18)
[2017-09-04] MEDS: METOPROLOL TARTRATE 50 MG TAB PEG SCH ×2 (10:00→20:26)
[2017-09-04] MEDS ORDERED: DILTIAZEM 125 MG/NS 100 ML IV PRN ×2 (10:00)
[2017-09-04] MEDS: LANSOPRAZOLE SOLUTAB 30 MG TAB NG SCH (10:00)
[2017-09-04] MEDS: ASPIRIN 81 MG CHEW TAB PEG SCH (10:15)
[2017-09-04] MEDS: CHOLECALCIFEROL (VIT D3) 1000 UNIT TAB PEG SCH (10:15)
[2017-09-04] MEDS ORDERED: ACETAMINOPHEN/HYDROcodone 325 MG/10 MG TAB PO PRN (10:30)
[2017-09-04] MEDS ORDERED: INSULIN ASPART SUPPLEMENTAL SCALE SQ SCH (12:00)
[2017-09-04] MEDS ORDERED: CALCIUM CARBONATE 1.25 GM (CA 500 MG) TAB PO SCH (14:00)
[2017-09-04] MEDS: GABAPENTIN 100 MG CAP PEG SCH ×2 (15:32→22:00)
[2017-09-04] MEDS: DILTIAZEM HCL 60 MG TAB PEG SCH ×2 (15:32→22:00)
[2017-09-04] MEDS: CALCIUM/VITAMIN D 250 MG/125 U TAB PEG SCH ×2 (15:32→17:36)
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
[2017-09-04] MEDS ORDERED: DEXTROSE 50% IN WATER 50 ML VIAL(D50) IV PUSH PRN (15:45)
[2017-09-04] MEDS ORDERED: GLUCAGON 1 MG/ML VIAL OTHER PRN (15:45)
[2017-09-04] MEDS: ceFAZolin 2 GM PREMIX 50 ML IV SCH ×2 (16:21→23:21)
[2017-09-04] MEDS: LOW DOSE INSULIN NOVOLOG SUPPLEMENTAL SCALE SQ SCH ×2 (17:35→20:26)
[2017-09-04] MEDS ORDERED: INSULIN DETEMIR 100 UNITS/ML VIAL SQ SCH (21:00)
[2017-09-05] VITALS (23 sets, daily range): BP systolic 124–147; BP diastolic 68–97; PULSE 82–109; RESP 16–18; TEMP 97.4–98.6; O2SAT 96–98
[2017-09-05] MEDS: DILTIAZEM HCL 60 MG TAB PEG SCH ×2 (06:00→14:12)
[2017-09-05] MEDS: GABAPENTIN 100 MG CAP PEG SCH ×2 (06:00→14:12)
--- NOTE | 2017-09-05 07:43 | PD.ORT.PN ---
Subjective Subjective Remarks POD 1 s/p STSG left forearm doing well. reports no pain. seems slightly confused and states he was living in motel prior to his surgery Objective Vitals Vital Signs Date Time Temp Pulse Resp B/P (MAP) Pulse Ox O2 Delivery O2 Flow Rate FiO2 09/05/17 05:00 102 09/05/17 04:20 97.6 82 16 124/68 (86) 98 09/05/17 04:00 108 09/05/17 03:00 100 09/05/17 02:00 98 09/05/17 01:00 108 09/05/17 00:16 97.4 105 16 131/77 (95) 98 09/05/17 00:00 94 09/04/17 23:00 102 09/04/17 22:00 94 09/04/17 21:00 104 09/04/17 20:00 92 09/04/17 19:05 97.4 100 16 126/72 (90) 98 09/04/17 19:00 110 09/04/17 18:00 124 09/04/17 17:00 79 09/04/17 16:00 124 09/04/17 15:00 106 09/04/17 15:00 97.3 113 14 134/76 (95) 98 09/04/17 14:00 89 09/04/17 13:00 106 09/04/17 11:45 104 09/04/17 11:45 97.6 124 18 134/77 (96) 96 09/04/17 11:00 98.5 99 15 145/66 (92) 100 Nasal Cannula 2 09/04/17 10:30 97 15 143/63 (89) 100 Nasal Cannula 2 09/04/17 10:15 99 16 134/60 (84) 100 Nasal Cannula 2 09/04/17 10:00 92 16 147/67 (93) 94 Nasal Cannula 2 09/04/17 09:45 110 16 140/79 (99) 94 Nasal Cannula 2 09/04/17 09:40 110 140/79 09/04/17 09:30 99 16 126/59 (81) 94 Nasal Cannula 3 09/04/17 09:20 97.8 105 16 119/64 (82) 94 Nasal Cannula 3 I/O 09/04/17 09/04/17 09/04/17 09/05/17 09/05/177/17 07:00 15:00 23:00 07:00 15:00 23:00 Intake Total 1400 ml 0 ml 430 ml Output Total 310 ml 450.0 ml 100.0 ml Balance 1090 ml -450.0 ml 330.0 ml Intake Oral 0 ml IV Total 150 ml 300 ml Tube Feeding 130 ml Other 1250 ml Output Urine Total 300 ml 450 ml Tube Feeding Residual Discard 0 ml 100.0 ml Estimated Blood Loss 10 ml Objective Remarks LUE: dressings clean and dry. intact. NVI. + vac with good seal Left thigh: dresing clean and dry Assessment & Plan Assessment and Plan 1) Left Forearm STSG - POD 1 -NWB -maintain dressing and wound vac at all times -vac settings: 100mmHg, low, continuous -disposable wound vac delivered this AM and placed in patients room and charging. -vac pump will need to be connected and turned on prior to discharge -unhook current tubing and connect to new vac. hold power button for 5 seconds til pump turns on and pump should be set to go. -once patient arrives at [facility], will be transferred back to in house vac pump -needs to follow up with Dr Almaraz in the office on Saturday to have vac removed. Ej Leslie/Lighting Adviser PA Sep 05, 2017 07:43
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
[2017-09-05] MEDS ORDERED: glipiZIDE 5 MG TAB PEG SCH (08:00)
[2017-09-05] MEDS: LANSOPRAZOLE SOLUTAB 30 MG TAB NG SCH (08:06)
[2017-09-05] MEDS: ceFAZolin 2 GM PREMIX 50 ML IV SCH (08:06)
[2017-09-05] MEDS: ASPIRIN 81 MG CHEW TAB PEG SCH (08:06)
[2017-09-05] MEDS: TAMSULOSIN HCL 0.4 MG CAP PO SCH (08:06)
[2017-09-05] MEDS: PRAVASTATIN SOD 40 MG TAB PEG SCH (08:07)
[2017-09-05] MEDS: CALCIUM/VITAMIN D 250 MG/125 U TAB PEG SCH ×3 (08:07→16:59)
[2017-09-05] MEDS: CHOLECALCIFEROL (VIT D3) 1000 UNIT TAB PEG SCH (08:07)
[2017-09-05] MEDS: LOW DOSE INSULIN NOVOLOG SUPPLEMENTAL SCALE SQ SCH ×4 (08:15→16:59)
[2017-09-05] MEDS: METOPROLOL TARTRATE 50 MG TAB PEG SCH (08:15)
[2017-09-05] MEDS ORDERED: ENOXAPARIN SODIUM 30 MG/0.3 ML SYRINGE SQ SCH (08:30)
[2017-09-05] MEDS: LACTATED RINGER'S 1000 ML INJ 1,000 ML IV SCH (14:52)
[2017-09-09] MEDS ORDERED: ERGOCALCIFEROL (VIT D2) 50,000 UNIT CAP PEG SCH (09:00)
== END 2017-09-05 18:41 ==
LOC: HSDC 05:10 → EDSTATUS 07:15 → HSDI 08:55 → HCIS 11:37
PROVIDERS: ADMIT Orthopaedic Surgery Orthopaedic Trauma; ATTEND Orthopaedic Surgery Orthopaedic Trauma
DX: S51.802A Unspecified open wound of left forearm, initial encounter (principal); N40.0 Benign prostatic hyperplasia without lower urinary tract symptoms; I48.91 Unspecified atrial fibrillation; I10 Essential (primary) hypertension; E11.9 Type 2 diabetes mellitus without complications; R33.9 Retention of urine, unspecified; E78.5 Hyperlipidemia, unspecified; Z79.4 Long term (current) use of insulin; Z79.82 Long term (current) use of aspirin
CPT/HCPCS: 00400; 15002; 15003; 15100; 15101; 82948; 96372; 97163; G0378; G8987; G8988; J0690; J1580; J1650; J1815; J3370; J7050; J7120

== ENCOUNTER → 2017-10-25 | Outpatient (CLI) | payer MEDICARE, BC ==
[~2017-10-25] MED LIST changes: +ASCO500C; +COLA100C5; +LANTUS2P SQ; -LEVEMIR SQ; +MULTTAB67 PO; +OYST1TAB PO; -guaiFENesin ER PO
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
== END ==
LOC: HRAD 09:29
PROVIDERS: ATTEND Family Medicine
DX: R13.10 Dysphagia, unspecified (principal)
CPT/HCPCS: 74230; 92611; G8996; G8997; G8998

== ENCOUNTER → 2017-11-06 | Outpatient (CLI) | payer MEDICARE, BC ==
[~2017-11-06] MED LIST changes: +CIPR-9 PO; +FINA5TAB2 PO
[2017-11-06 13:15] LABS: AUTOMATED NEUTROPHIL # 7.5 TH/MM3 (1.8-7.7); BASOPHIL # 0.1 TH/MM3 (0-0.2); BASOPHIL % 0.9 % (0.0-2.0); EOSINOPHIL # 0.2 TH/MM3 (0-0.4); EOSINOPHIL % 2.4 % (0.0-4.0); HEMATOCRIT 42.8 % (39.0-51.0); HEMOGLOBIN 14.2 GM/DL (13.0-17.0); LYMPH % 6.5 % (9.0-44.0); LYMPHOCYTE # 0.6 TH/MM3 (1.0-4.8); MEAN CELL VOLUME 89.5 FL (80.0-100.0); MEAN CORPUSCULAR HEMOGLOBIN 29.7 PG (27.0-34.0); MEAN CORPUSCULAR HGB CONC 33.2 % (32.0-36.0); MEAN PLATELET VOLUME 8.8 FL (7.0-11.0); MONO % 8.5 % (0.0-8.0); MONOCYTE # 0.8 TH/MM3 (0-0.9); NEUT % 81.7 % (16.0-70.0); PLATELET COUNT 207 TH/MM3 (150-450); RED BLOOD COUNT 4.78 MIL/MM3 (4.50-5.90); RED CELL DISTRIBUTION WIDTH 15.2 % (11.6-17.2); WHITE BLOOD COUNT 9.2 TH/MM3 (4.0-11.0)
[2017-11-06 13:23] LABS: PROTHROMBIN TIME - PATIENT 10.6 SEC (9.8-11.6)
[2017-11-06 13:50] LABS: BACTERIA, URINE RARE /hpf; BILIRUBIN, URINE NEG (NEG); BLOOD, URINE NEG (NEG); GLUCOSE,URINE NEG (NEG); KETONE, URINE NEG (NEG); MUCUS URINE FEW /lpf (OCC); NITRITE,URINE NEG (NEG); SQUAMOUS EPITHELIAL CELL URINE <1 /hpf (0-5); URINE COLOR YELLOW (YELLW/STRAW); URINE LEUKOCYTE ESTERASE SMALL (NEG); WHITE BLOOD CELL CLUMPS RARE
== END ==
LOC: CPRE 11:46
PROVIDERS: ATTEND Neurological Surgery
DX: Z01.812 Encounter for preprocedural laboratory examination (principal); Z79.01 Long term (current) use of anticoagulants; M50.10 Cervical disc disorder with radiculopathy, unspecified cervical region; M48.02 Spinal stenosis, cervical region; M50.30 Other cervical disc degeneration, unspecified cervical region; M47.12 Other spondylosis with myelopathy, cervical region; R82.99 Other abnormal findings in urine
CPT/HCPCS: 36415; 81001; 85025; 85610; 85730; 87086; 87640; 87641

== ENCOUNTER 2017-11-11 05:45 | Observation (INO) | payer MEDICARE, BC ==
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
[~2017-11-11] VITALS: Ht 175.3 cm; Wt 67.5 kg
[~2017-11-11 05:45] MED LIST changes: -CIPR-9 PO; -FINA5TAB2 PO
[2017-11-11] MEDS ORDERED: CIPR-9 PO (06:51)
[2017-11-11] MEDS ORDERED: BUPIVACAINE/EPINEPHRINE 0.5% PF 30 ML VIAL ONE (06:51)
[2017-11-11] MEDS ORDERED: THROMBIN (TOPICAL) 5,000 UNIT VIAL ONE (06:51)
[2017-11-11] MEDS ORDERED: VANCOMYCIN HCL 1000 MG VIAL ONE (06:51)
[2017-11-11] MEDS ORDERED: GELFOAM SIZE 100 ONE (06:51)
[2017-11-11] MEDS ORDERED: FINA5TAB2 PO (06:51)
[2017-11-11] MEDS ORDERED: VANCOMYCIN 1000 MG/NS 250 ML IV SCH ×2 (07:30)
[2017-11-11] MEDS ORDERED: CHLORHEXIDINE GLUCONATE 2 % 1 PACK (2 CLOTHS) TOPICAL PRN (07:30)
[2017-11-11] MEDS ORDERED: POVIDONE IODINE 5% (ANTISEPSIS KIT) 4 APPLICATIONS EACH NARE PRN (07:30)
[2017-11-11] MEDS ORDERED: SODIUM CHLORID 0.9% 500 ML IV PRN (07:30)
[2017-11-11] MEDS ORDERED: METOPROLOL TARTRATE 25 MG TAB PO PRN (07:30)
[2017-11-11] MEDS ORDERED: LACTATED RINGER'S 1000 ML IV PRN (07:30)
[2017-11-11] MEDS ORDERED: SODIUM CHLOR 0.9% 1000 ML INJ 1,000 ML IV SCH ×2 (07:30→12:30)
[2017-11-11] MEDS ORDERED: PROPOFOL 500 MG/50 ML INJ 100 ML ONE (08:16)
[2017-11-11] MEDS ORDERED: DEXAMETHASONE SOD PHOS 4 MG/ML VIAL ONE (08:16)
[2017-11-11] MEDS ORDERED: ACETAMINOPHEN 1000 MG/100 ML 100 ML IV ONE (08:16)
[2017-11-11] MEDS ORDERED: ceFAZolin INJ 1,000 MG VIAL ONE (08:56)
--- NOTE | 2017-11-11 11:11 | EKG ---
Date Performed: 11/11/2017 Time Performed: 06:47:33 PTAGE: 77 years EKG: ATRIAL FIBRILLATION NONSPECIFIC ST & T-WAVE ABNORMALITY ABNORMAL ECG Since the prior tracin g, there has been no significant change PREVIOUS TRACING : 07/28/2017 17.50 DOCTOR: Bradley Thomas Interpretating Date/Time 11/11/2017 11:05:31
[2017-11-11] MEDS ORDERED: NORMOSOL R INJ 2,000 ML IV ONE (12:00)
[2017-11-11] MEDS ORDERED: PROPOFOL 200 MG/20 ML AMP IV ONE (12:00)
[2017-11-11] MEDS ORDERED: DEXAMETHASONE SOD PHOS 4 MG/ML VIAL IV ONE (12:00)
[2017-11-11] MEDS ORDERED: ONDANSETRON HCL 4 MG/2 ML VIAL IV ONE (12:00)
[2017-11-11] MEDS ORDERED: PHENYLEPH/NS 1000 MCG/10 ML SYR IV ONE (12:00)
[2017-11-11] MEDS ORDERED: GLYCOPYRROLATE 1 MG/5 ML SYRINGE IV PUSH ONE (12:00)
[2017-11-11] MEDS ORDERED: PHENYLEPHRINE HCL 10 MG/ML VIAL IV ONE (12:00)
[2017-11-11] MEDS ORDERED: LIDOCAINE HCL 1% PF 5 ML SYRINGE OTHER ONE (12:00)
[2017-11-11] MEDS ORDERED: NEOSTIGMINE 5 MG/5 ML SYRINGE IV PUSH ONE (12:00)
[2017-11-11] MEDS ORDERED: ROCURONIUM INJ 50 MG/5 ML SYRINGE IV PUSH ONE (12:00)
[2017-11-11] MEDS ORDERED: LACTATED RINGER'S 1000 ML INJ 1,000 ML IV ONE (12:00)
--- NOTE | 2017-11-11 12:29 | PD.OP ---
Operative Report Date of Surgery: Nov 11, 2017 Preoperative Diagnosis: Severe Dysphagia with chronic neck pain; large C3-4 and C4-5 anterior osteophytes with prevertebral soft tissue compression and degenerative disc disease and disc osteophyte complex sutured spinal and foraminal stenosis Postoperative Diagnosis: Same Procedure: Anterior cervical C3-4 and C4-5 microdiscectomy with interbody fusion and resection of large anterior osteophytes; anterior C3-5 cervical plate placement ; C3-4 and C4-5 interbody cage placement; microsurgical technique Anesthesia: Gen. endotracheal by Cecil banegas Surgeon: Neeraj Ford M.D. Farm Agent(s): Zandra Chilel Operation and Findings: Following administration of general endotracheal anesthesia, the patient received a gram of vancomycin and Decadron 10 mg intravenously. Sequential compression devices were placed in supine position on a Jenaro table and all pressure points adequately padded. The head secured in a donut and anterior cervical region then shaved and prepped with Chloraprep and sterilely draped with Ioban along with the usual sterile draping. A transverse skin incision on the left side of the neck was then made after infiltrating the skin with 0.5% Marcaine with epinephrine solution extending down through the platysma. At the anterior border of the sternocleidomastoid further dissection was undertaken developing a plane between the carotid sheath laterally and the trachea esophagus medially. The prevertebral fascia was exposed and dissected out. The medial attachments of the longus colli muscles were detached and a self- retaining retractor used for exposure. Large anterior osteophytes at C3-4 and C4-5 were visible and compressing on the esophagus. Medial attachments of longus coli muscles were detached and these large osteophytes resected with a Leksell. The C3-4 disc space was localized with a marking the disc space and using lateral fluoroscopy. Savoy distraction screws 14 mm length were placed one in the C3 and one in the C5 body interbody distraction and exposure. There was significant disc degeneration with disc height collapse and anterior osteophytes noted at both C3-4 and C4-5 levels and annulus incised with a 15 blade and further dissection undertaken using microtechnique with microscope magnification. Diskectomy was undertaken with pituitaries and the endplates were also decorticated with curettes and drill bit. And more posteriorly there was disk osteophyte complex compressing the thecal sac along with a significant uncovertebral joint hypertrophy with foraminal stenosis which was decompressed along with removal of the posterior longitudinal ligaments at both levels. The foramen was decompressed bilaterally using a Kerrison's and palpation with a nerve hook, the exiting nerve roots were felt to be free. The area was then copiously irrigated. I then placed a Peek cage packed with local autograft bone at the C3-4 and C4-5 interspaces under fluoroscopy guidance. Savoy distraction pins were removed and the holes plugged with Gelfoam for hemostasis. In order to facilitate the fusion and provide stabilization, a Precision spine cervical plate was then placed with two 14 mm variable angle screws in the C3 body, one in the C4 body, and two 14 mm fixed angle screws in the C5 body. The plate screw locking mechanism was then engaged. AP and lateral fluoroscopy confirmed good placement of the construct and the retractor was then removed. Muscular bleeding points were cauterized with bipolar cautery and Gelfoam was then also used for hemostasis which was removed. The platysma was then approximated using 3-0 Vicryl interrupted stitches and 3-0 Vicryl subcuticular stitch also placed in an interrupted fashion, and final skin closure was with Mastisol and Steri-Strips. Sterile dressing was then applied. The neck immobilized in a Midway collar. The patient was then extubated and taken to the recovery room. There are no intraoperative complications and all sponge and needle counts were correct at the end of procedure. Estimated blood loss was about 75 cc. The patient did undergo intraoperative neurologic monitoring which remained stable throughout the surgery. Neeraj Ford MD Nov 11, 2017 12:29
[2017-11-11] MEDS ORDERED: ACETAMINOPHEN 325 MG TAB PO PRN (12:30)
[2017-11-11] MEDS ORDERED: ZOLPIDEM TARTRATE 5 MG TAB PO PRN (12:30)
[2017-11-11] MEDS ORDERED: MAGNESIUM HYDROXIDE SUSP 30 ML CUP PO PRN (12:30)
[2017-11-11] MEDS ORDERED: GLUCAGON 1 MG/ML VIAL OTHER PRN (12:30)
[2017-11-11] MEDS ORDERED: DEXTROSE 50% IN WATER 50 ML VIAL(D50) IV PUSH PRN (12:30)
[2017-11-11] MEDS ORDERED: PROMETHAZINE INJ 25 MG/ML VIAL IM PRN (12:30)
[2017-11-11] MEDS ORDERED: BISACODYL 10 MG SUPP RECTAL PRN (12:30)
[2017-11-11] MEDS ORDERED: ACETAMINOPHEN/HYDROcodone 325 MG/10 MG TAB PO PRN ×2 (12:30)
[2017-11-11] MEDS ORDERED: SODIUM CHLORIDE 0.9% FLUSH 10 ML FLUSH IV FLUSH PRN (12:30)
[2017-11-11] MEDS ORDERED: ONDANSETRON HCL 4 MG/2 ML VIAL IV PUSH PRN (12:30)
[2017-11-11] MEDS ORDERED: RESP: ALBUTEROL 2.5 MG/3 ML NEB (PRN) NEB (12:30)
[2017-11-11] MEDS ORDERED: LACTULOSE SYRUP 20 GM/30 ML CUP PO PRN (12:30)
[2017-11-11] MEDS ORDERED: cloNIDine HCL 0.1 MG TAB PO PRN ×2 (12:30→16:30)
[2017-11-11] MEDS ORDERED: CYCLOBENZAPRINE HCL 10 MG TAB PO PRN (12:30)
[2017-11-11] MEDS ORDERED: MENTHOL LOZENGE BUCCAL PRN (12:30)
[2017-11-11] MEDS ORDERED: ALUMINUM/MAGNESIUM/SIMETH 30 ML CUP PO PRN (12:30)
[2017-11-11] MEDS ORDERED: SENNOSIDES 8.6 MG TAB PO PRN (12:30)
[2017-11-11] MEDS ORDERED: DO NOT ADM ANY ANTICOAGULANT DRUGS PRN (12:34)
[2017-11-11] MEDS: CALCIUM/VITAMIN D 250 MG/125 U TAB PEG SCH ×2 (13:00→18:00)
[2017-11-11] MEDS ORDERED: HYDROmorphone HCL PF 2 MG/ML VIAL ONE (13:22)
[2017-11-11 13:41] LABS: AUTOMATED NEUTROPHIL # 8.4 TH/MM3 (1.8-7.7); BASOPHIL # 0.1 TH/MM3 (0-0.2); BASOPHIL % 0.8 % (0.0-2.0); EOSINOPHIL % 0.4 % (0.0-4.0); HEMATOCRIT 38.2 % (39.0-51.0); HEMOGLOBIN 12.6 GM/DL (13.0-17.0); LYMPHOCYTE # 0.4 TH/MM3 (1.0-4.8); MEAN CELL VOLUME 88.5 FL (80.0-100.0); MEAN CORPUSCULAR HEMOGLOBIN 29.2 PG (27.0-34.0); MEAN PLATELET VOLUME 8.8 FL (7.0-11.0); MONO % 1.7 % (0.0-8.0); MONOCYTE # 0.2 TH/MM3 (0-0.9); NEUT % 93.1 % (16.0-70.0); PLATELET COUNT 181 TH/MM3 (150-450); RED BLOOD COUNT 4.31 MIL/MM3 (4.50-5.90); RED CELL DISTRIBUTION WIDTH 15.3 % (11.6-17.2); WHITE BLOOD COUNT 9.1 TH/MM3 (4.0-11.0)
--- NOTE | 2017-11-11 13:42 | RADRPT ---
EXAM DATE/TIME: 11/11/2017 08:53 [facility] COMPARISON: [facility] ([facility]), August 14, 2017, 17:10. INDICATIONS : C3-4, C4-5 Anterior cervical disc fusion. MEDICAL HISTORY : Hypertension. Diabetes mellitus type II. A-fib. SURGICAL HISTORY : None. ENCOUNTER: Initial ACUITY: 1 day PAIN SCORE: Non-responsive. LOCATION: Cervical spine. FINDINGS: Status post anterior cervical fusion of the fusion C3-C5. Anatomic alignment. CONCLUSION: Anatomic alignment. Arsne Bazzi MD FACR on November 11, 2017 at 13:39 Board Certified Radiologist. This report was verified electronically.
[2017-11-11] MEDS: DILTIAZEM HCL 60 MG TAB PEG SCH ×2 (14:00→21:28)
[2017-11-11] MEDS: CALCIUM CARBONATE 1.25 GM (CA 500 MG) TAB PO SCH ×2 (14:00→21:16)
[2017-11-11] MEDS: GABAPENTIN 100 MG CAP PEG SCH ×2 (14:00→21:16)
[2017-11-11 14:08] LABS: BICARBONATE 29.2 MEQ/L (21.0-32.0); CALCIUM 8.6 MG/DL (8.5-10.1); CREATININE 1.41 MG/DL (0.60-1.30)
[2017-11-11] MEDS: DEXAMETHASONE SOD PHOS 4 MG/ML VIAL IV PUSH SCH ×2 (15:28→18:39)
[2017-11-11 16:40] VITALS: BP 167/106; PULSE 110; RESP 18; TEMP 96.2; O2SAT 97
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
[2017-11-11] MEDS: INSULIN NovoLIN REGULAR SUPPLEMENTAL SCALE SQ SCH ×2 (17:00→21:28)
[2017-11-11 20:39] VITALS: BP 171/93; PULSE 119; RESP 18; TEMP 96.4; O2SAT 96
[2017-11-11] MEDS: DOCUSATE SODIUM 50 MG/SENNA 8.6 MG TAB PO SCH (21:00)
[2017-11-11] MEDS: METOPROLOL TARTRATE 50 MG TAB PEG SCH (21:16)
[2017-11-11] MEDS: BACITRACIN TOP OINT 15 GM TUBE TOP SCH (21:17)
[2017-11-11] MEDS: SODIUM CHLORIDE 0.9% FLUSH 10 ML FLUSH IV FLUSH SCH (21:17)
[2017-11-11] MEDS: CIPROFLOXACIN 500 MG TAB PO SCH (21:17)
[2017-11-11 22:59] VITALS: BP 142/82; PULSE 126; RESP 18; TEMP 96.8; O2SAT 94
[2017-11-12] MEDS: DEXAMETHASONE SOD PHOS 4 MG/ML VIAL IV PUSH SCH (00:30)
[2017-11-12] MEDS ORDERED: DEXT 5%-NACL 0.45% 1000 ML INJ 1,000 ML IV SCH (02:00)
[2017-11-12] MEDS ORDERED: DEXAMETHASONE SOD PHOS 4 MG/ML VIAL IV PUSH SCH (03:00)
[2017-11-12 05:39] VITALS: BP 183/94; PULSE 85; RESP 18; TEMP 97.4; O2SAT 95
[2017-11-12] MEDS: CALCIUM CARBONATE 1.25 GM (CA 500 MG) TAB PO SCH ×2 (06:02→12:11)
[2017-11-12] MEDS: DILTIAZEM HCL 60 MG TAB PEG SCH ×2 (06:02→12:11)
[2017-11-12] MEDS: GABAPENTIN 100 MG CAP PEG SCH ×2 (06:02→12:11)
[2017-11-12] MEDS: CALCIUM/VITAMIN D 250 MG/125 U TAB PEG SCH ×2 (07:42→12:11)
[2017-11-12] MEDS: METOPROLOL TARTRATE 50 MG TAB PEG SCH (07:42)
[2017-11-12] MEDS: CIPROFLOXACIN 500 MG TAB PO SCH (07:42)
[2017-11-12] MEDS: DOCUSATE SODIUM 50 MG/SENNA 8.6 MG TAB PO SCH (07:43)
[2017-11-12 08:00] VITALS: BP 153/89; PULSE 94; RESP 18; TEMP 96; O2SAT 99
[2017-11-12] MEDS: INSULIN NovoLIN REGULAR SUPPLEMENTAL SCALE SQ SCH ×2 (08:00→11:53)
[2017-11-12 08:21] LABS: AUTOMATED NEUTROPHIL # 11.8 TH/MM3 (1.8-7.7); BASOPHIL % 0.1 % (0.0-2.0); HEMATOCRIT 40.1 % (39.0-51.0); HEMOGLOBIN 13.2 GM/DL (13.0-17.0); LYMPH % 4.1 % (9.0-44.0); LYMPHOCYTE # 0.5 TH/MM3 (1.0-4.8); MEAN CELL VOLUME 89.7 FL (80.0-100.0); MEAN CORPUSCULAR HEMOGLOBIN 29.5 PG (27.0-34.0); MEAN CORPUSCULAR HGB CONC 32.9 % (32.0-36.0); MEAN PLATELET VOLUME 9.3 FL (7.0-11.0); MONO % 3.5 % (0.0-8.0); MONOCYTE # 0.4 TH/MM3 (0-0.9); NEUT % 92.3 % (16.0-70.0); PLATELET COUNT 184 TH/MM3 (150-450); RED BLOOD COUNT 4.47 MIL/MM3 (4.50-5.90); RED CELL DISTRIBUTION WIDTH 15.5 % (11.6-17.2); WHITE BLOOD COUNT 12.8 TH/MM3 (4.0-11.0)
[2017-11-12] MEDS ORDERED: LANSOPRAZOLE SOLUTAB 30 MG TAB NG SCH (09:00)
[2017-11-12] MEDS ORDERED: TAMSULOSIN HCL 0.4 MG CAP PO SCH (09:00)
[2017-11-12] MEDS ORDERED: CHOLECALCIFEROL (VIT D3) 1000 UNIT TAB PEG SCH (09:00)
[2017-11-12] MEDS ORDERED: ASPIRIN 81 MG CHEW TAB PEG SCH (09:00)
[2017-11-12] MEDS: SODIUM CHLORIDE 0.9% FLUSH 10 ML FLUSH IV FLUSH SCH (09:00)
[2017-11-12] MEDS: BACITRACIN TOP OINT 15 GM TUBE TOP SCH (09:00)
[2017-11-12] MEDS ORDERED: PRAVASTATIN SOD 40 MG TAB PEG SCH (09:00)
[2017-11-12] MEDS ORDERED: FINASTERIDE 5 MG TAB PO SCH (09:00)
[2017-11-12 09:13] LABS: ALBUMIN 2.4 GM/DL (3.4-5.0); ALKALINE PHOSPHATASE 152 U/L (45-117); ALT (GPT) 10 U/L (12-78); AST (GOT) 15 U/L (15-37); BICARBONATE 26.9 MEQ/L (21.0-32.0); BLOOD UREA NITROGEN 44 MG/DL (7-18); CHLORIDE 103 MEQ/L (98-107); CREATININE 1.56 MG/DL (0.60-1.30); FREE T4 1.04 NG/DL (0.76-1.46); GLOMERULAR FILTRATION RATE 43 ML/MIN (>89); GLUCOSE,RANDOM 251 MG/DL (74-106); MAGNESIUM 2.2 MG/DL (1.5-2.5); SODIUM (NA) 139 MEQ/L (136-145); TOTAL BILIRUBIN ADULT 0.3 MG/DL (0.2-1.0); TOTAL PROTEIN 6.1 GM/DL (6.4-8.2)
[2017-11-12 09:57] VITALS: O2SAT 96
--- NOTE | 2017-11-12 09:58 | HHI.NSPN ---
(Venkat Ko) History Chief Complaint: Dysphagia. (Venkat Ko) Interval History Pt s/p anterior cervical C3-4 and C4-5 microdiscectomy with interbody fusion and resection of large anterior osteophytes; anterior C3-5 cervical plate placement; C3-4 and C4-5 interbody cage placement on 11/11/17. Pt is awake and alert. Denies any neck pain, radiculopathy, or paresthesias in UEs. States he feels good looking forward to rehab. Reportedly was seen by speech therapy and is not able to swallow. (Venkat Ko) Review of Systems General: Negative for: fever, chills, insomnia Respiratory: Negative for: shortness of breath, cough, sputum Cardiovascular: Negative for: chest pain Gastrointestinal: Negative for: nausea, vomitting, diarrhea, constipation ( Venkat Ko) Exam Results Vital Signs Date Time Temp Pulse Resp B/P (MAP) Pulse Ox O2 Delivery O2 Flow Rate FiO2 11/12/17 08:00 96.0 94 18 153/89 (110) 99 11/12/17 04:05 Room Air 11/11/17 13:30 2 Intake and Output 11/12/17 11/12/17 11/13/17 08:00 16:00 00:00 Intake Total 1104 ml Output Total 550.0 ml Balance 554.0 ml (Venkat Ko) Physical Examination General: Pt awake and alert in good spirits. Eyes: Pupils equal, sclera anicteric. Resp: CTA bilaterally Heart: NSR no murmurs Abd: Soft positive bs. PEG tube in place. Skin: Incision clean and dry New bandage placed. Muscle: Moves all 4 extremities well. Neuro: Pt awake and alert. Speech clear and appropriate. Pt with some short term memory deficits not new. Follows commands well. (Venkat Ko) Lab, Micro, Other Results Last Impressions Cervical Spine X-Ray 11/11/17 0000 Signed Impressions: Service Date/Time: Saturday, November 11, 2017 08:53 - CONCLUSION: Anatomic alignment. Arsen Bazzi MD FACR Laboratory Tests Test 11/11/17 13:00 11/12/17 06:47 White Blood Count 9.1 TH/MM3 12.8 TH/MM3 Red Blood Count 4.31 MIL/MM3 4.47 MIL/MM3 Hemoglobin 12.6 GM/DL 13.2 GM/DL Hematocrit 38.2 % 40.1 % Mean Corpuscular Volume 88.5 FL 89.7 FL Mean Corpuscular Hemoglobin 29.2 PG 29.5 PG Mean Corpuscular Hemoglobin Concent 33.0 % 32.9 % Red Cell Distribution Width 15.3 % 15.5 % Platelet Count 181 TH/MM3 184 TH/MM3 Mean Platelet Volume 8.8 FL 9.3 FL Neutrophils (%) (Auto) 93.1 % 92.3 % Lymphocytes (%) (Auto) 4.0 % 4.1 % Monocytes (%) (Auto) 1.7 % 3.5 % Eosinophils (%) (Auto) 0.4 % 0.0 % Basophils (%) (Auto) 0.8 % 0.1 % Neutrophils # (Auto) 8.4 TH/MM3 11.8 TH/MM3 Lymphocytes # (Auto) 0.4 TH/MM3 0.5 TH/MM3 Monocytes # (Auto) 0.2 TH/MM3 0.4 TH/MM3 Eosinophils # (Auto) 0.0 TH/MM3 0.0 TH/MM3 Basophils # (Auto) 0.1 TH/MM3 0.0 TH/MM3 CBC Comment DIFF FINAL DIFF FINAL Differential Comment Blood Urea Nitrogen 40 MG/DL 44 MG/DL Creatinine 1.41 MG/DL 1.56 MG/DL Random Glucose 130 MG/DL 251 MG/DL Calcium Level 8.6 MG/DL 9.0 MG/DL Sodium Level 140 MEQ/L 139 MEQ/L Potassium Level 4.0 MEQ/L 4.6 MEQ/L Chloride Level 103 MEQ/L 103 MEQ/L Carbon Dioxide Level 29.2 MEQ/L 26.9 MEQ/L Anion Gap 8 MEQ/L 9 MEQ/L Estimat Glomerular Filtration Rate 49 ML/MIN 43 ML/MIN Total Protein 6.1 GM/DL Albumin 2.4 GM/DL Phosphorus Level 4.0 MG/DL Magnesium Level 2.2 MG/DL Alkaline Phosphatase 152 U/L Aspartate Amino Transf (AST/SGOT) 15 U/L Alanine Aminotransferase (ALT/SGPT) 10 U/L Total Bilirubin 0.3 MG/DL Free Thyroxine 1.04 NG/DL Thyroid Stimulating Hormone 3rd Gen 0.415 uIU/ML (Venkat Ko) Medical Decision Making Impression and Plan A: 77 y/o M s/p anterior cervical C3-4 and C4-5 microdiscectomy with interbody fusion and resection of large anterior osteophytes; anterior C3-5 cervical plate placement; C3-4 and C4-5 interbody cage placement on 11/11/17. P: Rehab placement. Continue with PT, OT, speech. Resume TFs. (Venkat Ko) Attending Statement The exam, history, and the medical decision-making described in the above note were completed with the assistance of the mid-level provider. I reviewed and agree with the findings presented. I attest that I had a [id number] encounter with the patient on the same day, and personally performed and documented my assessment and findings in the medical record. (Neeraj Ford MD) Venkat Ko Nov 12, 2017 09:58 Neeraj Ford MD Nov 12, 2017 11:07
[2017-11-12 12:00] VITALS: BP 161/85; PULSE 65; RESP 18; TEMP 96.3; O2SAT 99
--- NOTE | 2017-11-12 14:45 | HHI.PR ---
Subjective Remarks deferred entry - patient seen at 9 am Patient denies any cp/sob. Objective Vitals Vital Signs Date Time Temp Pulse Resp B/P (MAP) Pulse Ox O2 Delivery O2 Flow Rate FiO2 11/12/17 09:57 96 21 11/12/17 08:00 96.0 94 18 153/89 (110) 99 11/12/17 05:39 97.4 85 18 183/94 (123) 95 11/12/17 04:05 Room Air 11/11/17 22:59 96.8 126 18 142/82 (102) 94 11/11/17 20:39 96.4 119 18 171/93 (119) 96 11/11/17 16:40 96.2 110 18 167/106 (126) 97 11/11/17 15:45 97.6 92 16 145/89 (107) 95 Room Air 11/11/17 15:00 94 16 143/86 (105) 95 Room Air I/O 11/11/17 11/11/17 11/11/17 11/12/17 11/12/17 11/12/17 06:59 14:59 22:59 06:59 14:59 22:59 Intake Total 3000 ml 295 ml 1104 ml Output Total 775 ml 350 ml 550.0 ml Balance 2225 ml -55 ml 554.0 ml Intake Oral 0 ml 0 ml IV Total 3000 ml 295 ml 1104 ml Output Urine Total 700 ml 350 ml 250 ml Gastric Drainage Total 150 ml Tube Feeding Residual Discard 150.0 ml Estimated Blood Loss 75 ml # Bowel Movements 0 0 Result Diagram: 11/12/17 0647 11/12/17 0647 Imaging Last Impressions Cervical Spine X-Ray 11/11/17 0000 Signed Impressions: Service Date/Time: Saturday, November 11, 2017 08:53 - CONCLUSION: Anatomic alignment. Arsen Bazzi MD FACR Objective Remarks AAOx3 Cervical hard collar in place nuero exam intact Clear lungs PEG in abdomen C/D/I S1S2 RRR A/P Problem List: (1) Cervical osteoarthritis ICD Code: M47.812 - Spondylosis without myelopathy or radiculopathy, cervical region Plan: Status post ACDF for help with large anterior osteophytes at C3 to C4 and C4 to C5 along with disc osteophyte complex and spinal stenosis Management as per neurosurgery. (2) Cervical osteophyte ICD Code: M25.78 - Osteophyte, vertebrae (3) Urinary retention ICD Code: R33.9 - Retention of urine, unspecified Status: Acute Plan: The due to BPH. Continue finasteride and Flomax. Voiding trials. If not better than urology consultation. (4) Dysphagia ICD Code: R13.10 - Dysphagia, unspecified Plan: Status post PEG placement. I will consult dietitian for tube feedings recommendations. (5) CKD (chronic kidney disease), stage III ICD Code: N18.3 - Chronic kidney disease, stage 3 (moderate) Plan: Upon review of records the patient has a chronically elevated creatinine with a baseline between 1.4 and 1.6. Patient's creatinine is active at baseline. Continue to monitor BUN. (6) Suspected UTI ICD Code: R39.89 - Other symptoms and signs involving the genitourinary system Plan: Urine culture concurrent with probable contaminants. Discontinue ciprofloxacin. UTI ruled out. Assessment and Plan Dysphagia status post PEG Diabetes mellitus continue on tube feeds that are diabetic as well as sliding scale coverage with Accu-Cheks before meals and at bedtime Urinary tract infection continue on Cipro Hypertension continue current medications Atrial fibrillation will need rate control and may eventually need anticoagulation when stable Status post multiple orthopedic surgeries and injuries Multiple skin wounds History of T11 vertebral body fracture History of right-sided rib fractures History of left humerus and right radius and ulnar fractures Hyperlipidemia BPH with current Silva in place Nato Rich MD Nov 12, 2017 14:45
[2017-11-12 16:31] LABS: HEMOGLOBIN A1C 7.9 % (4.3-6.0)
== END 2017-11-12 16:14 ==
LOC: HSDC 05:45 → HSDI 12:29 → N06B 16:07
PROVIDERS: ADMIT Neurological Surgery; ATTEND Neurological Surgery
DX: M50.31 Other cervical disc degeneration, high cervical region (principal); M48.02 Spinal stenosis, cervical region; M25.78 Osteophyte, vertebrae; R13.10 Dysphagia, unspecified; I12.9 Hypertensive chronic kidney disease with stage 1 through stage 4 chronic kidney disease, or unspecified chronic kidney disease; E11.22 Type 2 diabetes mellitus with diabetic chronic kidney disease; N18.3 Chronic kidney disease, stage 3 (moderate); E78.5 Hyperlipidemia, unspecified; N28.9 Disorder of kidney and ureter, unspecified; N39.0 Urinary tract infection, site not specified; I48.91 Unspecified atrial fibrillation; M47.812 Spondylosis without myelopathy or radiculopathy, cervical region; M45.9 Ankylosing spondylitis of unspecified sites in spine; N40.0 Benign prostatic hyperplasia without lower urinary tract symptoms; Z79.899 Other long term (current) drug therapy; Z79.4 Long term (current) use of insulin; Z87.891 Personal history of nicotine dependence; Z88.5 Allergy status to narcotic agent
CPT/HCPCS: 00600; 20936; 22551; 22552; 22853; 72040; 76000; 80048; 80053; 82948; 83036; 83735; 84100; 84439; 84443; 85025; 92610; 93005; 94150; 96365; 96366; 96372; 96375; 96376; 97162; 97166; C1713; G0378; G8987; G8988; J0131; J0690; J1100; J1170; J2370; J2405; J2710; J3010; J3370; J7030; J7050; J7120; L0150; L0172